=== PATIENT | male | born 1950 | race American Indian/Alaskan Native ===

== ENCOUNTER 2017-01-31 16:17 | Emergency (ER) | payer MEDICAID ==
[2017-01-31 16:56] VITALS: BP 178/82
--- NOTE | 2017-01-31 21:08 | XRay Report ---
FINAL REPORT EXAM: XR ANKLE 3 LT HISTORY: pain left ankle TECHNIQUE: Three views left ankle PRIORS: None. FINDINGS: No fracture is identified. No dislocation seen. Ankle mortise is intact no evidence of joint space widening. No erosive or degenerative changes are identified. No evidence of joint effusion. IMPRESSION: Negative ankle series
--- NOTE | 2017-01-31 22:24 | Emergency Department Report ---
ED Lower Extremity HPI - General Chief Complaint: Extremity Injury, Lower Stated Complaint: LEFT FOOT PAIN Time Seen by Provider: 01/31/17 21:06 Source: patient Mode of arrival: Ambulatory Limitations: No Limitations - History of Present Illness Initial Comments: This is a 66-year-old male that presents with left heel pain for the past 3 days. Patient describes pain as burning with difficulty bearing weight on it. Patient denies any numbness or tingling sensation, trauma to the limb, chest pain, shortness of breath, swelling, redness, fever or chills. Patient stated the pain is the worse with the first step in the morning. Patient describes pain as burning and aching. Patient states history of the same symptoms that comes and goes for the past couple of months. Patient rates pain at 10 out of 10. Patient does not seem toxic or ill in appearance. No signs of distress. Patient is well-nourished. MD Complaint: other (heel pain) -: Gradual, days(s) (3) Severity: moderate Improves With: NSAID Worsens With: weight bearing, palpation (of heel area) Associated Symptoms: able to partially bear weight (due to pain). denies: snap/ pop sensation, swelling, numbness, tingling, unable to bear weight, ambulatory - Related Data Previous Rx's Medication Instructions Recorded Last Taken Type ALBUTEROL Inhaler [ProAir HFA 2 puff IH BID PRN #1 inha 04/30/15 Unknown Rx Inhaler] Benzonatate [Tessalon Perles] 100 mg PO Q8HR #20 capsule 04/30/15 Unknown Rx Budesoni/Formotero 160-4.5(Nf) 2 puff IH BID #1 inha 04/30/15 Unknown Rx [Symbicort 160-4.5 (Nf)] Insulin Glulisine [Apidra] 0 units SUB-Q ACHS #30 units 04/30/15 Unknown Rx Ipratropium/Albuterol Sulfate 1 ampul IH TIDRT 20 Days 04/30/15 Unknown Rx [Duoneb 0.5 mg-3 mg/3 ml Soln] Levofloxacin [Levaquin TAB] 750 mg PO QDAY #8 tablet 04/30/15 Unknown Rx amLODIPine [Norvasc] 10 mg PO DAILY #30 tablet 04/30/15 Unknown Rx predniSONE [Deltasone] 20 mg PO QDAY 8 Days 04/30/15 Unknown Rx Ibuprofen [Motrin 600 MG tab] 600 mg PO Q8H PRN 7 Days 01/31/17 Unknown Rx Prednisone [predniSONE] 40 mg PO QDAY 5 Days 01/31/17 Unknown Rx Allergies Allergy/AdvReac Type Severity Reaction Status Date / Time No Known Allergies Allergy Verified 09/03/13 10:59 ED Review of Systems ROS: Stated complaint: LEFT FOOT PAIN Other details as noted in HPI Constitutional: denies: chills, fever Eyes: denies: eye pain, eye discharge, vision change ENT: denies: ear pain, throat pain Respiratory: denies: cough, shortness of breath, wheezing Cardiovascular: denies: chest pain, palpitations Endocrine: no symptoms reported Gastrointestinal: denies: abdominal pain, nausea, diarrhea Genitourinary: denies: urgency, dysuria Musculoskeletal: denies: back pain, joint swelling, arthralgia Skin: denies: rash, lesions Neurological: denies: headache, weakness, paresthesias Psychiatric: denies: anxiety, depression Hematological/Lymphatic: denies: easy bleeding, easy bruising ED Past Medical Hx - Past Medical History Hx Hypertension: Yes Hx Congestive Heart Failure: No Hx Diabetes: No Hx Asthma: No Hx COPD: Yes - Surgical History Additional Surgical History: colostomy - Social History Smoking Status: Current Every Day Smoker Substance Use Type: Alcohol - Medications Home Medications: Home Medications Medication Instructions Recorded Confirmed Last Taken Type ALBUTEROL Inhaler [ProAir HFA 2 puff IH BID PRN #1 inha 04/30/15 Unknown Rx Inhaler] Benzonatate [Tessalon Perles] 100 mg PO Q8HR #20 capsule 04/30/15 Unknown Rx Budesoni/Formotero 160-4.5(Nf) 2 puff IH BID #1 inha 04/30/15 Unknown Rx [Symbicort 160-4.5 (Nf)] Insulin Glulisine [Apidra] 0 units SUB-Q ACHS #30 units 04/30/15 Unknown Rx Ipratropium/Albuterol Sulfate 1 ampul IH TIDRT 20 Days 04/30/15 Unknown Rx [Duoneb 0.5 mg-3 mg/3 ml Soln] Levofloxacin [Levaquin TAB] 750 mg PO QDAY #8 tablet 04/30/15 Unknown Rx amLODIPine [Norvasc] 10 mg PO DAILY #30 tablet 04/30/15 Unknown Rx predniSONE [Deltasone] 20 mg PO QDAY 8 Days 04/30/15 Unknown Rx Ibuprofen [Motrin 600 MG tab] 600 mg PO Q8H PRN 7 Days 01/31/17 Unknown Rx Prednisone [predniSONE] 40 mg PO QDAY 5 Days 01/31/17 Unknown Rx ED Physical Exam - General Limitations: No Limitations General appearance: alert, in no apparent distress - Head Head exam: Present: atraumatic, normocephalic - Eye Eye exam: Present: normal appearance - ENT ENT exam: Present: mucous membranes moist - Neck Neck exam: Present: normal inspection - Respiratory Respiratory exam: Present: normal lung sounds bilaterally. Absent: respiratory distress - Cardiovascular Cardiovascular Exam: Present: regular rate, normal rhythm. Absent: systolic murmur, diastolic murmur, rubs, gallop - GI/Abdominal GI/Abdominal exam: Present: soft, normal bowel sounds - Rectal Rectal exam: Present: deferred - Extremities Exam Extremities exam: Present: normal inspection - Expanded Lower Extremity Exam Left Hip exam: Present: normal inspection, full ROM Upper Leg exam: Present: normal inspection, full ROM Knee exam: Present: normal inspection, full ROM Lower Leg exam: Present: normal inspection, full ROM Ankle exam: Present: normal inspection, full ROM. Absent: tenderness, swelling Foot/Toe exam: Present: normal inspection, full ROM, tenderness (heel). Absent : swelling, abrasion, laceration, ecchymosis, deformity, dislocation, erythema, puncture wound, foreign body, tenderness at base of 5th metatarsal, nail avulsion, subungual hematoma Neuro vascular tendon exam: Present: no vascular compromise Gait: Positive: observed and normal - Back Exam Back exam: Present: normal inspection - Neurological Exam Neurological exam: Present: alert, oriented X3 - Psychiatric Psychiatric exam: Present: normal affect, normal mood - Skin Skin exam: Present: warm, dry, intact, normal color. Absent: rash ED Course Vital Signs 01/31/17 16:52 Temperature 98.5 F Pulse Rate 79 Respiratory 20 Rate Blood Pressure 178/82 O2 Sat by Pulse 100 Oximetry ED Lower Extremity MDM - Medical Decision Making Ed course: 66-year-old male that presents with left heel pain 1- patient received ibuprofen 600 mg for pain in the ED. 2- I instructed the patient pain is due to plantar fasciitis. I instructed the patient to rest and ice to the left foot. I also prescribed patient with ibuprofen 600 mg by mouth as needed. 3- I also instructed the patient not to wear slippers ogle barefoot due to aggravating of symptoms and may result any recurrence of symptoms. I instructed the patient to buy athletics shoes that have an arch supporting, such as orthopedic shoes, may be helpful. 4- patient received prednisone 40 mg for 5 days and ibuprofen 600 mg by mouth when necessary at the time of discharge. 5- I instructed the patient to follow-up with his orthopedic/primary care doctor in 3-5 days. 6- I also instructed the patient to observe sinus symptoms of swelling, redness , fever or chills, numbness or tingling sensation extremity and to report back to emergency room. 7- x-ray of ankle is negative ankle series. Critical care attestation.: If time is entered above; I have spent that time in minutes in the direct care of this critically ill patient, excluding procedure time. ED Disposition Clinical Impression: Plantar fasciitis of left foot Disposition: DISCHARGED TO HOME OR SELFCARE Is pt being admited?: No Does the pt Need Aspirin: No Condition: Stable Instructions: Plantar Fasciitis (ED), Ibuprofen (By mouth), Prednisone (By mouth) Additional Instructions: Do not to wear slippers or go barefoot due to aggravating of symptoms and may result any recurrence of symptoms. Buy athletics shoes that have an arch supporting, such as orthopedic shoes, may be helpful. Take medications as prescribed. Follow-up with his orthopedic/primary care doctor in 3-5 days. Bbserve sinus symptoms of swelling, redness, fever or chills, numbness or tingling sensation extremity and report back to emergency room if symptoms present. Prescriptions: Ibuprofen [Motrin 600 MG tab] 600 mg PO Q8H PRN 7 Days PRN Reason: Pain Prednisone [predniSONE] 40 mg PO QDAY 5 Days Referrals: PRIMARY CARE, [Primary Care Provider] - 3-5 Days LEATHA MENDOZA MD [Referring] - 3-5 Days GIO TURNER MD [Referring] - 3-5 Days ZOILA STEWART MD [Referring] - 3-5 Days AMARJIT MANDUJANO MD [Referring] - 3-5 Days [facility] [Outside] - 3-5 Days
[2017-01-31] MEDS ORDERED: MOTRIN PO ONE (22:33)
== END 2017-01-31 22:55 | disposition home or self-care (01) ==
LOC: ED 16:17
DX: M72.2 Plantar fascial fibromatosis (principal); I10 Essential (primary) hypertension; J44.9 Chronic obstructive pulmonary disease, unspecified; F17.200 Nicotine dependence, unspecified, uncomplicated
CPT/HCPCS: 99283

== ENCOUNTER 2017-10-17 12:42 | Emergency (ER) | payer MEDICAID ==
--- NOTE | 2017-10-17 14:32 | XRay Report ---
ROUTINE CHEST, TWO VIEWS: HISTORY: Shortness of breath. The trachea, heart, mediastinal contour, lung thao and bony thorax are unremarkable. IMPRESSION: Unremarkable chest x-ray.
[2017-10-17 16:28] LABS: Hematocrit 42.6 % (35.5-45.6); Mean Corpuscular HGB Conc 33 % (32-34); Mean Corpuscular Hemoglobin 30 pg (28-32); Mean Corpuscular Volume 92 fl (84-94); Platelet Count 166 K/mm3 (140-440); Red Blood Count 4.61 M/mm3 (3.65-5.03); Red Cell Distribution Width 14.3 % (13.2-15.2)
[2017-10-17 16:37] LABS: BUN/Creatinine Ratio 14; Blood Urea Nitrogen 19 mg/dL (9-20); Calcium 8.8 mg/dL (8.4-10.2); Hemolysis Index 15
--- NOTE | 2017-10-18 00:38 | Emergency Department Report ---
ED Shortness of Breath HPI - General Chief Complaint: Upper Respiratory Infection Stated Complaint: FLU LIKE SYMPTOMS Time Seen by Provider: 10/18/17 00:28 Source: patient Mode of arrival: Ambulatory Limitations: No Limitations - History of Present Illness Initial Comments: Patient is 66 years old male history of COPD, hypertension and diabetes presented with shortness of breath cough productive with yellowish and greenish sputum associated with chills. Patient also stated that he has been nauseated but no vomiting. Positive diarrhea. Patient denied any chest pain. MD Complaint: shortness of breath, cough -: week(s) Severity: moderate Consistency: intermittent Associated Symptoms: fever, cough, sputum production - Related Data Previous Rx's Medication Instructions Recorded Last Taken Type ALBUTEROL Inhaler [ProAir HFA 2 puff IH BID PRN #1 inha 04/30/15 Unknown Rx Inhaler] Benzonatate [Tessalon Perles] 100 mg PO Q8HR #20 capsule 04/30/15 Unknown Rx Budesoni/Formotero 160-4.5(Nf) 2 puff IH BID #1 inha 04/30/15 Unknown Rx [Symbicort 160-4.5 (Nf)] Insulin Glulisine [Apidra] 0 units SUB-Q ACHS #30 units 04/30/15 Unknown Rx Ipratropium/Albuterol Sulfate 1 ampul IH TIDRT 20 Days ampul.neb 04/30/15 Unknown Rx [DUONEB *Not for PRN Use*] Levofloxacin [Levaquin TAB] 750 mg PO QDAY #8 tablet 04/30/15 Unknown Rx amLODIPine [Norvasc] 10 mg PO DAILY #30 tablet 04/30/15 Unknown Rx predniSONE [Deltasone] 20 mg PO QDAY 8 Days tab 04/30/15 Unknown Rx Ibuprofen [Motrin 600 MG tab] 600 mg PO Q8H PRN 7 Days tablet 01/31/17 Unknown Rx Prednisone [predniSONE] 40 mg PO QDAY 5 Days tab 01/31/17 Unknown Rx Allergies Allergy/AdvReac Type Severity Reaction Status Date / Time No Known Allergies Allergy Verified 09/03/13 10:59 ED Review of Systems ROS: Stated complaint: FLU LIKE SYMPTOMS Other details as noted in HPI Comment: All other systems reviewed and negative Constitutional: chills. denies: fever Respiratory: cough, shortness of breath. denies: orthopnea, SOB with exertion, SOB at rest, stridor, wheezing Cardiovascular: denies: chest pain, palpitations Gastrointestinal: nausea. denies: abdominal pain, vomiting, diarrhea Neurological: denies: headache, weakness, numbness, paresthesias ED Past Medical Hx - Past Medical History Hx Hypertension: Yes Hx Congestive Heart Failure: No Hx Diabetes: Yes Hx Asthma: No Hx COPD: Yes Additional medical history: gout,pneumonia - Surgical History Additional Surgical History: colostomy - Social History Smoking Status: Current Every Day Smoker Substance Use Type: None - Medications Home Medications: Home Medications Medication Instructions Recorded Confirmed Last Taken Type ALBUTEROL Inhaler [ProAir HFA 2 puff IH BID PRN #1 inha 04/30/15 Unknown Rx Inhaler] Benzonatate [Tessalon Perles] 100 mg PO Q8HR #20 capsule 04/30/15 Unknown Rx Budesoni/Formotero 160-4.5(Nf) 2 puff IH BID #1 inha 04/30/15 Unknown Rx [Symbicort 160-4.5 (Nf)] Insulin Glulisine [Apidra] 0 units SUB-Q ACHS #30 units 04/30/15 Unknown Rx Ipratropium/Albuterol Sulfate 1 ampul IH TIDRT 20 Days ampul.neb 04/30/15 Unknown Rx [DUONEB *Not for PRN Use*] Levofloxacin [Levaquin TAB] 750 mg PO QDAY #8 tablet 04/30/15 Unknown Rx amLODIPine [Norvasc] 10 mg PO DAILY #30 tablet 04/30/15 Unknown Rx predniSONE [Deltasone] 20 mg PO QDAY 8 Days tab 04/30/15 Unknown Rx Ibuprofen [Motrin 600 MG tab] 600 mg PO Q8H PRN 7 Days tablet 01/31/17 Unknown Rx Prednisone [predniSONE] 40 mg PO QDAY 5 Days tab 01/31/17 Unknown Rx ED Physical Exam - General Limitations: No Limitations General appearance: alert, in no apparent distress - Head Head exam: Present: atraumatic, normocephalic, normal inspection - Eye Eye exam: Present: normal appearance, PERRL - ENT ENT exam: Present: normal exam, mucous membranes moist - Neck Neck exam: Present: normal inspection, full ROM. Absent: tenderness, meningismus, lymphadenopathy - Respiratory Respiratory exam: Present: normal lung sounds bilaterally. Absent: respiratory distress, wheezes, rales, rhonchi, stridor, chest wall tenderness, accessory muscle use, decreased breath sounds, prolonged expiratory - Cardiovascular Cardiovascular Exam: Present: regular rate, normal rhythm, normal heart sounds - GI/Abdominal GI/Abdominal exam: Present: soft, normal bowel sounds. Absent: distended, tenderness, guarding, rebound, rigid, organomegaly, mass, bruit, pulsatile mass , hernia - Extremities Exam Extremities exam: Present: normal inspection, full ROM, normal capillary refill - Back Exam Back exam: Present: normal inspection, full ROM. Absent: CVA tenderness (L) - Neurological Exam Neurological exam: Present: alert, oriented X3, CN II-XII intact, normal gait - Skin Skin exam: Present: warm, intact, normal color. Absent: cyanosis ED Course Vital Signs 10/17/17 13:18 Temperature 98.8 F Pulse Rate 84 Respiratory 24 Rate Blood Pressure 130/64 O2 Sat by Pulse 95 Oximetry ED Medical Decision Making - Lab Data Result diagrams: 10/17/17 16:00 10/17/17 16:00 - Radiology Data Radiology results: report reviewed Referring Physician: ED RONNY Patient Name: REJI NARANJO Date of : 1950 Sex: Male Report Date: 2017-10-17 Report Status: Finalized Findings [facility] [address] [place] [address] XRay Report Signed Patient: REJI NARANJO MR#: [id number] : 1950 Acct:[id number] Age/Sex: 66 / M ADM Date: 10/17/17 Loc: ED Attending Dr: Ordering Physician: MARI JEFFERSON MD Date of Service: 10/17/17 Procedure(s): XR chest routine 2V Accession Number(s): [id number] cc: MARI JEFFERSON MD Fluoro Time In Minutes: ROUTINE CHEST, TWO VIEWS: HISTORY: Shortness of breath. The trachea, heart, mediastinal contour, lung thao and bony thorax are unremarkable. IMPRESSION: Unremarkable chest x-ray. Transcribed By: TTR Dictated By: SHAGGY FERMIN JR, MD Electronically Authenticated By: SHAGGY FERMIN JR, MD Signed Date/Time: 10/17/171425 DD/ 25 TD/TT: 10/17/171425 Critical care attestation.: If time is entered above; I have spent that time in minutes in the direct care of this critically ill patient, excluding procedure time. ED Disposition Clinical Impression: Acute exacerbation of chronic obstructive pulmonary disease (COPD), Acute bronchitis Disposition: TO HOME OR SELFCARE Is pt being admited?: No Condition: Stable Instructions: Chronic Obstructive Pulmonary Disease (ED), Acute Bronchitis (ED) Referrals: IRA AGUILAR NP [Primary Care Provider] - 3-5 Days
[2017-10-18 00:43] VITALS: BP 158/69
== END 2017-10-18 01:04 | disposition home or self-care (01) ==
LOC: ED 12:42
DX: J45.909 Unspecified asthma, uncomplicated (principal); J20.9 Acute bronchitis, unspecified; I10 Essential (primary) hypertension; E11.9 Type 2 diabetes mellitus without complications; F17.200 Nicotine dependence, unspecified, uncomplicated
CPT/HCPCS: 36415; 71046; 80048; 85027; 87400

== ENCOUNTER 2018-11-03 08:39 | Inpatient (IN) | payer MEDICARE ==
--- NOTE | 2018-11-03 08:45 | Emergency Department Report ---
ED Abdominal Pain HPI - General Stated Complaint: UNABLE TO URINATE Time Seen by Provider: 11/03/18 08:44 Source: patient, EMS Mode of arrival: Stretcher Limitations: No Limitations - History of Present Illness Initial Comments: Patient is a 67-year-old male that presents emergency room with complaints of urinary retention. Patient states she's not urinated for 4 days. Patient having lower abdominal pressure. Patient states the pressure is 10 out of 10. Patient states the pressure is better with rest.. Patient states it is worse with movement and palpation. Patient states the pressure is nonradiating. Patient denies fever and chills. Patient denies other pain. Patient denies chest pain shortness of breath. MD Complaint: abdominal pain -: Sudden Location: suprapubic Radiation: none Migration to: no migration Severity: severe Severity scale (0 -10): 10 Quality: aching Consistency: constant Improves With: rest Worsens With: movement Associated Symptoms: denies other symptoms. denies: nausea, vomiting, diarrhea, fever, chills, constipation, dysuria, hematemesis, hematochezia, melena, hematuria, anorexia, syncope - Related Data Home Medications Medication Instructions Recorded Confirmed Last Taken Allopurinol [Zyloprim] 300 mg PO QDAY 11/03/18 11/03/18 Unknown Amlodipine Besylate [Norvasc] 10 mg PO QDAY 11/03/18 11/03/18 Unknown Atorvastatin Calcium [Lipitor] 20 mg PO QDAY 11/03/18 11/03/18 Unknown Fluticasone/Vilanterol [Breo 1 each IH QDAY 11/03/18 11/03/18 Unknown Ellipta 200-25 Mcg INH] Metoprolol [Lopressor] 25 mg PO BID 11/03/18 11/03/18 Unknown Olmesartan/Hydrochlorothiazide 1 each PO QDAY 11/03/18 11/03/18 Unknown [Olmesartan-Hctz 40-25 mg Tab] Potassium Chloride [Klor-Con 10] 10 meq PO QDAY 11/03/18 11/03/18 Unknown Allergies Allergy/AdvReac Type Severity Reaction Status Date / Time No Known Allergies Allergy Verified 09/03/13 10:59 ED Review of Systems ROS: Stated complaint: UNABLE TO URINATE Other details as noted in HPI Constitutional: denies: chills, fever Eyes: denies: eye pain, eye discharge, vision change ENT: denies: ear pain, throat pain Respiratory: denies: cough, shortness of breath, wheezing Cardiovascular: denies: chest pain, palpitations Endocrine: no symptoms reported Gastrointestinal: abdominal pain. denies: nausea, diarrhea Genitourinary: denies: urgency, dysuria Musculoskeletal: denies: back pain, joint swelling, arthralgia Skin: denies: rash, lesions Neurological: denies: headache, weakness, paresthesias Psychiatric: denies: anxiety, depression Hematological/Lymphatic: denies: easy bleeding, easy bruising ED Past Medical Hx - Past Medical History Previous Medical History?: Yes Hx Hypertension: Yes Hx Congestive Heart Failure: No Hx Diabetes: Yes Hx Asthma: No Hx COPD: Yes Additional medical history: gout,pneumonia - Surgical History Past Surgical History?: Yes Additional Surgical History: colostomy - Family History Family history: no significant - Social History Smoking Status: Current Every Day Smoker Substance Use Type: None - Medications Home Medications: Home Medications Medication Instructions Recorded Confirmed Last Taken Type Allopurinol [Zyloprim] 300 mg PO QDAY 11/03/18 11/03/18 Unknown History Amlodipine Besylate [Norvasc] 10 mg PO QDAY 11/03/18 11/03/18 Unknown History Atorvastatin Calcium [Lipitor] 20 mg PO QDAY 11/03/18 11/03/18 Unknown History Fluticasone/Vilanterol [Breo 1 each IH QDAY 11/03/18 11/03/18 Unknown History Ellipta 200-25 Mcg INH] Metoprolol [Lopressor] 25 mg PO BID 11/03/18 11/03/18 Unknown History Olmesartan/Hydrochlorothiazide 1 each PO QDAY 11/03/18 11/03/18 Unknown History [Olmesartan-Hctz 40-25 mg Tab] Potassium Chloride [Klor-Con 10] 10 meq PO QDAY 11/03/18 11/03/18 Unknown History ED Physical Exam - General Limitations: No Limitations General appearance: alert, in no apparent distress - Head Head exam: Present: atraumatic, normocephalic - Eye Eye exam: Present: normal appearance, PERRL Pupils: Present: normal accommodation - ENT ENT exam: Present: mucous membranes moist - Neck Neck exam: Present: normal inspection - Respiratory Respiratory exam: Present: normal lung sounds bilaterally. Absent: respiratory distress - Cardiovascular Cardiovascular Exam: Present: regular rate, normal rhythm. Absent: systolic murmur, diastolic murmur, rubs, gallop - GI/Abdominal GI/Abdominal exam: Present: soft, normal bowel sounds, other (colostomy bag noted). Absent: distended, tenderness, guarding - Rectal Rectal exam: Present: deferred - Extremities Exam Extremities exam: Present: normal inspection - Back Exam Back exam: Present: normal inspection - Neurological Exam Neurological exam: Present: alert, oriented X3 - Psychiatric Psychiatric exam: Present: normal affect, normal mood - Skin Skin exam: Present: warm, dry, intact, normal color. Absent: rash ED Course Vital Signs 11/03/18 11/03/18 11/03/18 09:06 09:20 09:23 Temperature 98.6 F 98.6 F Pulse Rate 118 H 118 H Respiratory 20 20 20 Rate Blood Pressure 156/66 Blood Pressure 156/66 [Left] O2 Sat by Pulse 99 99 99 Oximetry 11/03/18 11/03/18 11/03/18 10:19 10:30 10:45 Temperature Pulse Rate 96 H 95 H 94 H Respiratory 14 20 10 L Rate Blood Pressure 128/68 128/68 136/68 Blood Pressure [Left] O2 Sat by Pulse 95 98 96 Oximetry 11/03/18 11/03/18 11/03/18 11:00 11:15 11:30 Temperature Pulse Rate 91 H 94 H 89 Respiratory 24 15 21 Rate Blood Pressure 136/68 126/70 126/70 Blood Pressure [Left] O2 Sat by Pulse 94 96 94 Oximetry 11/03/18 11/03/18 11/03/18 11:45 12:00 12:16 Temperature Pulse Rate 90 87 88 Respiratory 13 19 15 Rate Blood Pressure 129/68 129/68 154/67 Blood Pressure [Left] O2 Sat by Pulse 97 98 96 Oximetry 11/03/18 11/03/18 11/03/18 12:30 12:46 13:00 Temperature Pulse Rate 88 82 86 Respiratory 15 12 23 Rate Blood Pressure 135/69 141/73 127/69 Blood Pressure [Left] O2 Sat by Pulse 94 96 96 Oximetry 11/03/18 11/03/18 13:16 14:21 Temperature 98.6 F Pulse Rate 84 103 H Respiratory 15 20 Rate Blood Pressure 135/71 Blood Pressure 134/66 [Left] O2 Sat by Pulse 96 100 Oximetry - Reevaluation(s) Reevaluation #1: Patient's Briscoe has been placed by nurse. Briscoe draining clear urine. Patient states the pressure and pain is improving. 11/03/18 09:03 Patient states he is feeling better. Family is at bedside. Family states that the patient has been confused recently due to having high fevers. Family states that the patient has been complaining of fever and chills. Family states also the patient has complained of a swelling and discharge from his rectum. Patient examined again. Over on initial contact patient patient denied other symptoms except for lower abdominal pain and pressure and urinary retention. Patient's urinary retention has been resolved however patient on reexamination found to have a large perirectal abscess that is draining. Further workup will be done. Labs will be drawn. 11/03/18 10:30 Reevaluation #2: Dr. garcia on patient. Dr. parra believes that the mass on his rectal region is secondary to scarring and anatomical variation after his last surgery secondary to a abscess that was there. Since Dr. parra believes this is not a rectal abscess source of infection will need to be found. Rectal exam done and prostate of normal size. Rectal mucus noted 11/03/18 13:58 - Consultations Consultation #1: Dr. Parra consulted for surgical D&C. Dr. Hailey Parra patient nothing by mouth and admitted to the hospitalist service Consultation #2: Hospitalist consulted for admission. Hospitalist to admit patient and assume care of patient. Bridge orders placed 11/03/18 12:56 ED Medical Decision Making - Lab Data Result diagrams: 11/03/18 10:46 11/03/18 10:46 - Radiology Data CT ABDOMEN AND PELVIS WITHOUT CONTRAST INDICATION: Fever. COMPARISON: None similar. FINDINGS: Noncontrast abdomen and pelvis CT performed. LUNG BASES: Slight right basilar dependent atelectasis or scarring posteriorly. Coronary and aortic atherosclerotic calcifications. Right hemidiaphragm approximately 4 cm higher than the left. Nonspecific air-filled distal esophageal wall prominence/thickening, not excluded for gastroesophageal reflux and/or hiatal hernia, amongst others. ABDOMEN: Please note that sensitivity to detect small visceral lesions is limited due to the absence of intravenous or oral contrast. However, grossly unremarkable unenhanced liver, spleen, gallbladder, pancreas and IVC. Slight hypodense adrenal prominence/possible hyperplasia and a questionable 1.2 cm left adrenal adenoma laterally as on axial image 46, series 2. Nonaneurysmal abdominal aorta with atherosclerotic aortoiliac calcifications and slight distal aortic ectasia with maximum caliber of 2.1 cm. No hydronephrosis or radiopaque calculi with mild nonspecific bilateral perinephric stranding. No ascites or definite significant adenopathy. Nonopacified GI tract evaluation limited, though grossly nonobstructive. Normal appendix. Moderate stool throughout colon/possible constipation. A left lower quadrant colostomy with fat containing parastomal hernia with transverse neck of approximately 2.9 cm noted as on axial image 104, series 2, amongst others. Fat containing umbilical/paraumbilical hernia with a transverse neck of 3.2 cm, axial image 94 with smaller additional supraumbilical hernias also suspected as on axial images 86 and 80. PELVIS: Briscoe catheter decompresses the urinary bladder. Delfino's pouch noted with its stapled end in the lower abdomen/upper pelvis on axial image 107. Small prostatic calcifications. Grossly unremarkable seminal vesicles. However, a large presacral/coccygeal soft tissue mass with bony destruction noted, approximately 10 cm craniocaudal, 4 cm AP and 4.1 cm transverse on axial image 133, series 2, amongst others. Some soft tissue density also noted dorsal to the involved distal sacrum/coccyx as measuring approximately 2 cm on axial image 136 with oblique extension along a possible scar towards left gluteal as on axial images 144-167, amongst others. Few pelvic phleboliths. No free fluid or definite significant adenopathy. Small fat containing inguinal hernia measuring up to 1.7 cm on the right. Severe L4-L5 disc obliteration/fusion. Additional multilevel spinal degenerative changes as spurring and advanced disc narrowing/vacuum phenomena noted. Lumbosacral facet arthropathy. Left more than right SI joint degenerative bridging/spurring. Possible osteopenia. CONCLUSION: 1. Large presacral/coccygeal soft tissue mass with bony destruction, most suspicious for metastatic disease in this patient with presumed colorectal carcinoma with postsurgical changes, as detailed above. 2. No definite acute CT abnormality on this limited, unenhanced exam with various findings as at the imaged lung bases, nonspecific bilateral perinephric stranding, umbilical/supraumbilical fat containing hernias, left parastomal fat containing hernia at the colostomy site, Briscoe catheter and multilevel spinal degenerative changes, amongst others, as described. - Medical Decision Making Patient is a 67-year-old male that presents emergency room with complaints of urinary retention. After the family arrived to the hospital family updated me on the patient's actual complaint for coming to the ER R fever and rectal pain. Patient found to have a rectal abscess and elevated white count. General surgery consult. Patient to be admitted to the hospitalist service. Patient will require IV antibiotics. - Differential Diagnosis fever. urinary retention. rectal abscess. Critical Care Time: Yes Critical care attestation.: If time is entered above; I have spent that time in minutes in the direct care of this critically ill patient, excluding procedure time. Critical Care Time: 45 minutes ED Disposition Clinical Impression: Urinary retention, Rectal abscess Fever Qualifiers: Fever type: unspecified Qualified Code(s): R50.9 - Fever, unspecified Elevated WBC count Qualifiers: Leukocytosis type: unspecified Qualified Code(s): D72.829 - Elevated white blood cell count, unspecified Colon cancer Qualifiers: Colon location: unspecified part of colon Qualified Code(s): C18.9 - Malignant neoplasm of colon, unspecified Disposition: DC-09 OP ADMIT IP TO THIS HOSP Is pt being admited?: Yes Does the pt Need Aspirin: No Condition: Critical Time of Disposition: 12:56
[2018-11-03 09:35] LABS: Bacteria,Urine 1+ /HPF (Negative)
[2018-11-03 09:37] LABS: Bilirubin,Urine NEG (Negative); Blood,Urine SM (Negative); Color,Urine Yellow (Yellow); Urobilinogen,Urine < 2.0 mg/dL (<2.0)
[2018-11-03] MEDS ORDERED: NACL 0.9% 1000 ML IV ONE (10:36)
[2018-11-03 11:00] LABS: Basophils % (Auto) 0.2 % (0.0-1.8); Hematocrit 36.4 % (35.5-45.6); Hemoglobin 12.2 gm/dl (11.8-15.2); Lymphocytes # (Auto) 0.9 K/mm3 (1.2-5.4); Lymphocytes % (Auto) 4.9 % (13.4-35.0); Mean Corpuscular HGB Conc 34 % (32-34); Mean Corpuscular Volume 90 fl (84-94); Monocytes # (Auto) 1.5 K/mm3 (0.0-0.8); Platelet Count 320 K/mm3 (140-440); Red Blood Count 4.06 M/mm3 (3.65-5.03); Red Cell Distribution Width 13.9 % (13.2-15.2)
[2018-11-03 11:24] LABS: Alanine Aminotransferase 46 units/L (7-56); Albumin 3.1 g/dL (3.9-5); BUN/Creatinine Ratio 22; Blood Urea Nitrogen 31 mg/dL (9-20); Calcium 9.4 mg/dL (8.4-10.2); Hemolysis Index 0
[2018-11-03] MEDS ORDERED: MAXIPIME/NS 2 GM/100 ML 2 GM/100 ML BAG IV ONE ×2 (11:52→13:22)
--- NOTE | 2018-11-03 15:04 | Cat Scan Report ---
CT ABDOMEN AND PELVIS WITHOUT CONTRAST INDICATION: Fever. COMPARISON: None similar. FINDINGS: Noncontrast abdomen and pelvis CT performed. LUNG BASES: Slight right basilar dependent atelectasis or scarring posteriorly. Coronary and aortic atherosclerotic calcifications. Right hemidiaphragm approximately 4 cm higher than the left. Nonspecific air-filled distal esophageal wall prominence/thickening, not excluded for gastroesophageal reflux and/or hiatal hernia, amongst others. ABDOMEN: Please note that sensitivity to detect small visceral lesions is limited due to the absence of intravenous or oral contrast. However, grossly unremarkable unenhanced liver, spleen, gallbladder, pancreas and IVC. Slight hypodense adrenal prominence/possible hyperplasia and a questionable 1.2 cm left adrenal adenoma laterally as on axial image 46, series 2. Nonaneurysmal abdominal aorta with atherosclerotic aortoiliac calcifications and slight distal aortic ectasia with maximum caliber of 2.1 cm. No hydronephrosis or radiopaque calculi with mild nonspecific bilateral perinephric stranding. No ascites or definite significant adenopathy. Nonopacified GI tract evaluation limited, though grossly nonobstructive. Normal appendix. Moderate stool throughout colon/possible constipation. A left lower quadrant colostomy with fat containing parastomal hernia with transverse neck of approximately 2.9 cm noted as on axial image 104, series 2, amongst others. Fat containing umbilical/paraumbilical hernia with a transverse neck of 3.2 cm, axial image 94 with smaller additional supraumbilical hernias also suspected as on axial images 86 and 80. PELVIS: Briscoe catheter decompresses the urinary bladder. Delfino's pouch noted with its stapled end in the lower abdomen/upper pelvis on axial image 107. Small prostatic calcifications. Grossly unremarkable seminal vesicles. However, a large presacral/coccygeal soft tissue mass with bony destruction noted, approximately 10 cm craniocaudal, 4 cm AP and 4.1 cm transverse on axial image 133, series 2, amongst others. Some soft tissue density also noted dorsal to the involved distal sacrum/coccyx as measuring approximately 2 cm on axial image 136 with oblique extension along a possible scar towards left gluteal as on axial images 144-167, amongst others. Few pelvic phleboliths. No free fluid or definite significant adenopathy. Small fat containing inguinal hernia measuring up to 1.7 cm on the right. Severe L4-L5 disc obliteration/fusion. Additional multilevel spinal degenerative changes as spurring and advanced disc narrowing/vacuum phenomena noted. Lumbosacral facet arthropathy. Left more than right SI joint degenerative bridging/spurring. Possible osteopenia. CONCLUSION: 1. Large presacral/coccygeal soft tissue mass with bony destruction, most suspicious for metastatic disease in this patient with presumed colorectal carcinoma with postsurgical changes, as detailed above. 2. No definite acute CT abnormality on this limited, unenhanced exam with various findings as at the imaged lung bases, nonspecific bilateral perinephric stranding, umbilical/supraumbilical fat containing hernias, left parastomal fat containing hernia at the colostomy site, Briscoe catheter and multilevel spinal degenerative changes, amongst others, as described. Thank you for the opportunity to participate in this patient's care.
--- NOTE | 2018-11-03 15:43 | XRay Report ---
PORTABLE CHEST: Fever An AP portable view of the chest demonstrates a normal cardiac contour considering the limits of this technique. The lungs are clear with no evidence of infiltrate, fluid or failure. No interval change compared to prior exam of October 17, 2017. IMPRESSION: Normal portable chest.
--- NOTE | 2018-11-03 17:28 | Consultation ---
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 He is a poor historian and all history is obtained from current chart and prior hospitalizations. Apparently he has not urinated in 4 days. He also noted some soreness in his rectal area especially when sitting down as well as mucous discharge for the last 3 days. The patient had a colostomy performed due to a chronic anal fistula. He did have surgical drainage of the anal fistula. From t he records he has not had a recent colonoscopy. He was seen by [facility] in 2015 during a hospitalization. Unsure if he has followed up as an outpatient since then. He has never had w/u for Crohns disease per the chart. Past History Past Medical History: COPD, hypertension, hyperlipidemia, other (chronic anal fistula) Past Surgical History: Other (drainage of anal fistula, colostomy) Social history: no significant social history Family history: no significant family history Medications and Allergies Allergies Allergy/AdvReac Type Severity Reaction Status Date / Time No Known Allergies Allergy Verified 09/03/13 10:59 Home Medications Medication Instructions Recorded Confirmed Last Taken Type Allopurinol [Zyloprim] 300 mg PO QDAY 11/03/18 11/03/18 Unknown History Amlodipine Besylate [Norvasc] 10 mg PO QDAY 11/03/18 11/03/18 Unknown History Atorvastatin Calcium [Lipitor] 20 mg PO QDAY 11/03/18 11/03/18 Unknown History Fluticasone/Vilanterol [Breo 1 each IH QDAY 11/03/18 11/03/18 Unknown History Ellipta 200-25 Mcg INH] Metoprolol [Lopressor] 25 mg PO BID 11/03/18 11/03/18 Unknown History Olmesartan/Hydrochlorothiazide 1 each PO QDAY 11/03/18 11/03/18 Unknown History [Olmesartan-Hctz 40-25 mg Tab] Potassium Chloride [Klor-Con 10] 10 meq PO QDAY 11/03/18 11/03/18 Unknown History Active Meds: Active Medications Pneumococcal Polyvalent Vaccine (Pneumovax 23) 0.5 ml IM .ONCE ONE Stop: 11/04/18 12:01 Review of Systems All systems: negative (10 pt ROS performed and negative except for that listed in HPI) Exam Vital Signs Temp Pulse Resp BP Pulse Ox 98.6 F 118 H 20 156/66 99 11/03/18 09:06 11/03/18 09:06 11/03/18 09:06 11/03/18 09:06 11/03/18 09:06 Narrative exam: Gen; AAOx3. NAD ENT: no scleral icterus or conjunctival pallor CV: s1, S2+ resp: even and unlabored Abd: soft, NT, ND, protuberant. colostomy in place with liquid in bag Ext: no c/c/e : little in place with dark chetan urine in bag Rectal: right perirectal gluteal surgical scar, contracted and well healed. Prominent perirectal soft tissue without fluctuance, erythema, induration or drainage. 18G needle inserted in sterile fashion into this area and nothing aspirated. Rectum with white clear mucous discharge. Chronic 1cm epithelialized tract posterior to the rectum without drainage Results - Labs 11/03/18 10:46 11/03/18 10:46 Abnormal lab results 11/03/18 11/03/18 Range/Units 10:46 10:46 WBC 19.2 H (4.5-11.0) K/mm3 Lymph % (Auto) 4.9 L (13.4-35.0) % Harlan % (Auto) 8.0 H (0.0-7.3) % Lymph # 0.9 L (1.2-5.4) K/mm3 Harlan # 1.5 H (0.0-0.8) K/mm3 Seg Neutrophils % 86.9 H (40.0-70.0) % Seg Neutrophils # 16.7 H (1.8-7.7) K/mm3 Chloride 96.8 L (98-107) mmol/L BUN 31 H (9-20) mg/dL Glucose 171 H (75-100) mg/dL AST 54 H (5-40) units/L Albumin 3.1 L (3.9-5) g/dL Diabetes panel 11/03/18 Range/Units 10:46 Sodium 137 (137-145) mmol/L Potassium 4.2 (3.6-5.0) mmol/L Chloride 96.8 L (98-107) mmol/L Carbon Dioxide 27 (22-30) mmol/L BUN 31 H (9-20) mg/dL Creatinine 1.4 (0.8-1.5) mg/dL Glucose 171 H (75-100) mg/dL Calcium 9.4 (8.4-10.2) mg/dL AST 54 H (5-40) units/L ALT 46 (7-56) units/L Alkaline Phosphatase 100 (35-129) units/L Total Protein 8.1 (6.3-8.2) g/dL Albumin 3.1 L (3.9-5) g/dL Calcium panel 11/03/18 Range/Units 10:46 Calcium 9.4 (8.4-10.2) mg/dL Albumin 3.1 L (3.9-5) g/dL Pituitary panel 11/03/18 Range/Units 10:46 Sodium 137 (137-145) mmol/L Potassium 4.2 (3.6-5.0) mmol/L Chloride 96.8 L (98-107) mmol/L Carbon Dioxide 27 (22-30) mmol/L BUN 31 H (9-20) mg/dL Creatinine 1.4 (0.8-1.5) mg/dL Glucose 171 H (75-100) mg/dL Calcium 9.4 (8.4-10.2) mg/dL Adrenal panel 11/03/18 Range/Units 10:46 Sodium 137 (137-145) mmol/L Potassium 4.2 (3.6-5.0) mmol/L Chloride 96.8 L (98-107) mmol/L Carbon Dioxide 27 (22-30) mmol/L BUN 31 H (9-20) mg/dL Creatinine 1.4 (0.8-1.5) mg/dL Glucose 171 H (75-100) mg/dL Calcium 9.4 (8.4-10.2) mg/dL Total Bilirubin 0.90 (0.1-1.2) mg/dL AST 54 H (5-40) units/L ALT 46 (7-56) units/L Alkaline Phosphatase 100 (35-129) units/L Total Protein 8.1 (6.3-8.2) g/dL Albumin 3.1 L (3.9-5) g/dL - Imaging CT scan - abdomen: report reviewed, image reviewed CT scan - pelvis: report reviewed, image reviewed Assessment and Plan 67 yo M with elevated WBC, tachycardia, urinary retention, ?perirectal abscess Plan: 1. On exam patient does not have a perirectal abscess but evidence of surgery in the perianal area. He has soft tissue prominence likely due to the surgery and mucous drainage from the rectum can be seen commonly after colostomy creation. 2. I reviewed the CT images and report. I also discussed the report with radiologist Dr. Zuleta. The patient does not have a known hx of colorectal cancer. After discussing the history of chronic anal fistula and surgery to the perianal area due to this diagnosis, the findings on the CT are likely related to chronic infection and not metastatic colon cancer. Dr. Zuleta recommends obtaining an old CT scan for comparison if possible 3. Reg diet 4. IVF 5. empiric antibiotics and further w/u for leukocytosis per 1' team 6. obtain old CT scan results if possible. Unsure where patient's prior surgery was. No family was at bedside, I will try and reach out to a family member tomorrow to obtain more details. Thank you, please call with questions.
[2018-11-03] MEDS ORDERED: SODIUM CHLORIDE FLUSH SYRINGE 10 ML IV PRN (18:51)
--- NOTE | 2018-11-03 18:51 | History and Physical Report ---
History of Present Illness Date of examination: 11/03/18 Date of admission: 11/03/18 12:58 Chief complaint: Urinary retention for 4 days History of present illness: 67-year-old male presents to emergency room with complaints of urinary retention for 4 days.Patient is a poor historian.Also complaints of some drainage per rectum.Patient has chronic anal fistula because of which patient has diverting colostomy so that Anal fistula can heal.Patient was supposed to h ave GI folloow up but he never dollowed up.No known history of chrohn's disease.Abd pain present. Past Medical History Previous Medical History?: Yes Hypertension: Yes Diabetes: Yes COPD: Yes Additional medical history: gout,pneumonia Surgical History Past Surgical History?: Yes Additional Surgical History: colostomy Family History No significant History Social History Smoking Status: Current Every Day Smoker Substance Use Type: None Medications Home Medications: Home Medications Medication Instructions Recorded Confirmed Last Taken Type Allopurinol [Zyloprim] 300 mg PO QDAY 11/03/18 11/03/18 Unknown History Amlodipine Besylate [Norvasc] 10 mg PO QDAY 11/03/18 11/03/18 Unknown History Atorvastatin Calcium [Lipitor] 20 mg PO QDAY 11/03/18 11/03/18 Unknown History Fluticasone/Vilanterol [Breo 1 each IH QDAY 11/03/18 11/03/18 Unknown History Ellipta 200-25 Mcg INH] Metoprolol [Lopressor] 25 mg PO BID 11/03/18 11/03/18 Unknown History Olmesartan/Hydrochlorothiazide 1 each PO QDAY 11/03/18 11/03/18 Unknown History [Olmesartan-Hctz 40-25 mg Tab] Potassium Chloride [Klor-Con 10] 10 meq PO QDAY 11/03/18 11/03/18 Unknown History Review of Systems ROS: Stated complaint: UNABLE TO URINATE Other details as noted in HPI Constitutional: denies: chills, fever Eyes: denies: eye pain, eye discharge, vision change ENT: denies: ear pain, throat pain Respiratory: denies: cough, shortness of breath, wheezing Cardiovascular: denies: chest pain, palpitations Endocrine: no symptoms reported Gastrointestinal: abdominal pain. denies: nausea, diarrhea Genitourinary: denies: urgency, dysuria Musculoskeletal: denies: back pain, joint swelling, arthralgia Skin: denies: rash, lesions Neurological: denies: headache, weakness, paresthesias Psychiatric: denies: anxiety, depression Hematological/Lymphatic: denies: easy bleeding, easy bruising Past History Past Medical History: COPD, hypertension, hyperlipidemia, other (chronic anal fistula) Past Surgical History: Other (drainage of anal fistula, colostomy) Social history: no significant social history Family history: no significant family history Medications and Allergies Allergies Allergy/AdvReac Type Severity Reaction Status Date / Time No Known Allergies Allergy Verified 09/03/13 10:59 Home Medications Medication Instructions Recorded Confirmed Last Taken Type Allopurinol [Zyloprim] 300 mg PO QDAY 11/03/18 11/03/18 Unknown History Amlodipine Besylate [Norvasc] 10 mg PO QDAY 11/03/18 11/03/18 Unknown History Atorvastatin Calcium [Lipitor] 20 mg PO QDAY 11/03/18 11/03/18 Unknown History Fluticasone/Vilanterol [Breo 1 each IH QDAY 11/03/18 11/03/18 Unknown History Ellipta 200-25 Mcg INH] Metoprolol [Lopressor] 25 mg PO BID 11/03/18 11/03/18 Unknown History Olmesartan/Hydrochlorothiazide 1 each PO QDAY 11/03/18 11/03/18 Unknown History [Olmesartan-Hctz 40-25 mg Tab] Potassium Chloride [Klor-Con 10] 10 meq PO QDAY 11/03/18 11/03/18 Unknown History Active Meds: Active Medications Pneumococcal Polyvalent Vaccine (Pneumovax 23) 0.5 ml IM .ONCE ONE Stop: 11/04/18 12:01 Exam - Constitutional Vitals: Temp Pulse Resp BP Pulse Ox 99.8 F H 82 20 108/42 98 11/03/18 16:20 11/03/18 16:20 11/03/18 16:20 11/03/18 16:20 11/03/18 16:20 General appearance: Present: no acute distress, well-nourished - EENT Eyes: Present: PERRL ENT: hearing intact, clear oral mucosa - Neck Neck: Present: supple, normal ROM - Respiratory Respiratory effort: normal Respiratory: bilateral: CTA - Cardiovascular Heart rate: 78 Rhythm: regular Heart Sounds: Present: S1 & S2. Absent: rub, click - Extremities Extremities: no ischemia, pulses intact, pulses symmetrical, No edema Peripheral Pulses: within normal limits - Abdominal General gastrointestinal: Present: soft, non-tender, non-distended, normal bowel sounds Male genitourinary: Present: normal - Rectal Rectal Exam: other (Rectal: right perirectal gluteal surgical scar, contracted and well healed. Prominent perirectal soft tissue without fluctuance, erythema, induration or drainage. 18G needle inserted in sterile fashion into this area an d nothing aspirated. Rectum with white clear mucous discharge. Chronic 1cm epithelialized tract posterior to the rectum without drainage) - Integumentary Integumentary: Present: clear, warm, dry - Musculoskeletal Musculoskeletal: gait normal, strength equal bilaterally - Psychiatric Psychiatric: appropriate mood/affect, intact judgment & insight - Neurologic Neurologic: CNII-XII intact, moves all extremities Results - Labs CBC & Chem 7: 11/03/18 10:46 11/03/18 10:46 Labs: Laboratory Last Values WBC 19.2 K/mm3 (4.5-11.0) H 11/03/18 10:46 RBC 4.06 M/mm3 (3.65-5.03) 11/03/18 10:46 Hgb 12.2 gm/dl (11.8-15.2) 11/03/18 10:46 Hct 36.4 % (35.5-45.6) 11/03/18 10:46 MCV 90 fl (84-94) 11/03/18 10:46 MCH 30 pg (28-32) 11/03/18 10:46 MCHC 34 % (32-34) 11/03/18 10:46 RDW 13.9 % (13.2-15.2) 11/03/18 10:46 Plt Count 320 K/mm3 (140-440) 11/03/18 10:46 Lymph % (Auto) 4.9 % (13.4-35.0) L 11/03/18 10:46 [place] % (Auto) 8.0 % (0.0-7.3) H 11/03/18 10:46 Eos % (Auto) 0.0 % (0.0-4.3) 11/03/18 10:46 Baso % (Auto) 0.2 % (0.0-1.8) 11/03/18 10:46 Lymph # 0.9 K/mm3 (1.2-5.4) L 11/03/18 10:46 [place] # 1.5 K/mm3 (0.0-0.8) H 11/03/18 10:46 Eos # 0.0 K/mm3 (0.0-0.4) 11/03/18 10:46 Baso # 0.0 K/mm3 (0.0-0.1) 11/03/18 10:46 Seg Neutrophils % 86.9 % (40.0-70.0) H 11/03/18 10:46 Seg Neutrophils # 16.7 K/mm3 (1.8-7.7) H 11/03/18 10:46 Sodium 137 mmol/L (137-145) 11/03/18 10:46 Potassium 4.2 mmol/L (3.6-5.0) 11/03/18 10:46 Chloride 96.8 mmol/L (98-107) L 11/03/18 10:46 Carbon Dioxide 27 mmol/L (22-30) 11/03/18 10:46 Anion Gap 17 mmol/L 11/03/18 10:46 BUN 31 mg/dL (9-20) H 11/03/18 10:46 Creatinine 1.4 mg/dL (0.8-1.5) 11/03/18 10:46 Estimated GFR > 60 ml/min 11/03/18 10:46 BUN/Creatinine Ratio 22 % 11/03/18 10:46 Glucose 171 mg/dL (75-100) H 11/03/18 10:46 Lactic Acid 1.50 mmol/L (0.7-2.0) 11/03/18 13:24 Calcium 9.4 mg/dL (8.4-10.2) 11/03/18 10:46 Total Bilirubin 0.90 mg/dL (0.1-1.2) 11/03/18 10:46 AST 54 units/L (5-40) H 11/03/18 10:46 ALT 46 units/L (7-56) 11/03/18 10:46 Alkaline Phosphatase 100 units/L (35-129) 11/03/18 10:46 Total Protein 8.1 g/dL (6.3-8.2) 11/03/18 10:46 Albumin 3.1 g/dL (3.9-5) L 11/03/18 10:46 Albumin/Globulin Ratio 0.6 % 11/03/18 10:46 Urine Color Yellow (Yellow) 11/03/18 09:06 Urine Turbidity Clear (Clear) 11/03/18 09:06 Urine pH 5.0 (5.0-7.0) 11/03/18 09:06 Ur Specific [place] 1.012 (1.003-1.030) 11/03/18 09:06 Urine Protein 30 mg/dl mg/dL (Negative) 11/03/18 09:06 Urine Glucose (UA) Neg mg/dL (Negative) 11/03/18 09:06 Urine Ketones Neg mg/dL (Negative) 11/03/18 09:06 Urine Blood Sm (Negative) 11/03/18 09:06 Urine Nitrite Neg (Negative) 11/03/18 09:06 Ur Reducing Substances Not Reportable 11/03/18 09:06 Urine Bilirubin Neg (Negative) 11/03/18 09:06 Urine Ictotest Not Reportable 11/03/18 09:06 Urine Urobilinogen < 2.0 mg/dL (<2.0) 11/03/18 09:06 Ur Leukocyte Esterase Neg (Negative) 11/03/18 09:06 Urine WBC (Auto) 2.0 /HPF (0.0-6.0) 11/03/18 09:06 Urine RBC (Auto) 1.0 /HPF (0.0-6.0) 11/03/18 09:06 Urine Bacteria (Auto) 1+ /HPF (Negative) 11/03/18 09:06 Short CBC 11/03/18 Range/Units 10:46 WBC 19.2 H (4.5-11.0) K/mm3 Hgb 12.2 (11.8-15.2) gm/dl Hct 36.4 (35.5-45.6) % Plt Count 320 (140-440) K/mm3 BMP 11/03/18 10:46 Sodium 137 Potassium 4.2 Chloride 96.8 L Carbon Dioxide 27 BUN 31 H Creatinine 1.4 Glucose 171 H Calcium 9.4 Liver Function 11/03/18 Range/Units 10:46 Total Bilirubin 0.90 (0.1-1.2) mg/dL AST 54 H (5-40) units/L ALT 46 (7-56) units/L Alkaline Phosphatase 100 (35-129) units/L Albumin 3.1 L (3.9-5) g/dL Urine 11/03/18 Range/Units 09:06 Urine Color Yellow (Yellow) Urine pH 5.0 (5.0-7.0) Ur Specific [place] 1.012 (1.003-1.030) Urine Protein 30 mg/dl (Negative) mg/dL Urine Glucose (UA) Neg (Negative) mg/dL - Imaging and Cardiology CT scan - abdomen: report reviewed Imaging and Cardiology: CT Abdomen/Pelvis PELVIS: Briscoe catheter decompresses the urinary bladder. Delfino's pouch noted with its stapled end in the lower abdomen/upper pelvis on axial image 107. Small prostatic calcifications. Grossly unremarkable seminal vesicles. However, a large presacral/coccygeal soft tissue mass with bony destruction note d, approximately 10 cm craniocaudal, 4 cm AP and 4.1 cm transverse on axial image 133, series 2, amongst others. Some soft tissue density also noted dorsal to the involved distal sacrum/coccyx as measuring approximately 2 cm on axial image 136 with oblique extension along a possible scar towards left gluteal as on axial images 144-167, amongst others. Few pelvic phleboliths. No free or definite significant adenopathy. Small fat containing inguinal hernia measuring up to 1.7 cm on the right. Severe L4-L5 disc obliteration/fusion. Additional multilevel spinal degenerative changes as spurring and advanced disc narrowing/vacuum phenomena noted. Lumbosacral facet arthropathy. Left more than right SI joint degenerative bridging/spurring. Possible osteopenia. CONCLUSION: 1. Large presacral/coccygeal soft tissue mass with bony destruction, most suspicious for metastatic disease in this patient with presumed colorectal carcinoma with postsurgical changes, as detailed above. 2. No definite acute CT abnormality on this limited, unenhanced exam with various findings as at the imaged lung bases, nonspecific bilateral perinephric stranding, umbilical/supraumbilical fat containing hernias, left parastomal fat containing hernia at the colostomy site, Briscoe catheter and multilevel spinal degenerative changes, amongst others, as described. Assessment and Plan Advance Directives: Yes (Full code) VTE prophylaxis?: Chemical Plan of care discussed with patient/family: Yes - Patient Problems (1) Sepsis Current Visit: No Status: Acute Plan to address problem: No source of infection found Empiric abx for now-Zosyn Cultures pending (2) Colon cancer Current Visit: Yes Status: Acute Qualifiers: Colon location: unspecified part of colon Qualified Code(s): C18.9 - Malignant neoplasm of colon, unspecified Plan to address problem: Presacral soft mass with bony destruction most suspicious for metastatic disease possibly from colon. Ordered CT guided biopsy Oncology and GI consult requested (3) Anal fistula Current Visit: No Status: Chronic Plan to address problem: Healed (4) Colostomy care Current Visit: No Status: Chronic (5) HTN (hypertension) Current Visit: No Status: Chronic Qualifiers: Hypertension type: essential hypertension Qualified Code(s): I10 - Essential (primary) hypertension Plan to address problem: OCnt antihypertensives (6) Nicotine addiction Current Visit: No Status: Chronic Qualifiers: Nicotine product type: cigarettes Plan to address problem: Nicoderm patch (7) HLD (hyperlipidemia) Current Visit: Yes Status: Chronic Qualifiers: Hyperlipidemia type: mixed hyperlipidemia Qualified Code(s): E78.2 - Mixed hyperlipidemia Plan to address problem: Cont statins (8) COPD (chronic obstructive pulmonary disease) Current Visit: Yes Status: Chronic Qualifiers: Emphysema type: unspecified Plan to address problem: Cont Ellipta and Duonebs (9) T2DM (type 2 diabetes mellitus) Current Visit: Yes Status: Chronic Qualifiers: Diabetes mellitus technician terminal and repeater insulin use: without technician terminal and repeater use Plan to address problem: Coverage for now (10) Urinary retention Current Visit: Yes Status: Acute Plan to address problem: Briscoe inserted Urology consult requested (11) Malnutrition Current Visit: Yes Status: Chronic Qualifiers: Protein-calorie malnutrition severity: moderate Plan to address problem: Dietitianconsult requested for oral supplements (12) DVT prophylaxis Current Visit: Yes Status: Acute Plan to address problem: On Lovenox and GI prophylaxis
[2018-11-03] MEDS ORDERED: NACL 0.9% 1000 ML 1,000 ML IV SCH (20:00)
[2018-11-03] MEDS: DILAUDID IV PRN (20:18)
[2018-11-03] MEDS: PEPCID IV SCH (21:45)
[2018-11-03] MEDS: SODIUM CHLORIDE FLUSH SYRINGE 10 ML IV SCH (21:46)
[2018-11-04] MEDS ORDERED: SODIUM CHLORIDE FLUSH SYRINGE 10 ML IV PRN (01:35)
[2018-11-04] MEDS ORDERED: ZOFRAN IV PRN (01:35)
[2018-11-04] MEDS ORDERED: TYLENOL PO PRN (01:35)
[2018-11-04] MEDS: HumaLOG SUB-Q SCH ×4 (04:00→18:36)
[2018-11-04 04:50] LABS: Basophils # (Auto) 0.1 K/mm3 (0.0-0.1); Basophils % (Auto) 0.6 % (0.0-1.8); Eosinophils # (Auto) 0.1 K/mm3 (0.0-0.4); Eosinophils % (Auto) 0.4 % (0.0-4.3); Hematocrit 34.3 % (35.5-45.6); Hemoglobin 11.3 gm/dl (11.8-15.2); Lymphocytes # (Auto) 1.7 K/mm3 (1.2-5.4); Lymphocytes % (Auto) 13.4 % (13.4-35.0); Mean Corpuscular HGB Conc 33 % (32-34); Mean Corpuscular Volume 90 fl (84-94); Monocytes # (Auto) 1.3 K/mm3 (0.0-0.8); Monocytes % (Auto) 9.9 % (0.0-7.3); Platelet Count 292 K/mm3 (140-440); Red Blood Count 3.79 M/mm3 (3.65-5.03); Red Cell Distribution Width 14.1 % (13.2-15.2)
[2018-11-04 05:11] LABS: Alanine Aminotransferase 49 units/L (7-56); Albumin 2.8 g/dL (3.9-5); BUN/Creatinine Ratio 26; Blood Urea Nitrogen 23 mg/dL (9-20); Calcium 8.8 mg/dL (8.4-10.2); Hemolysis Index 3
[2018-11-04] MEDS: ZOSYN/NS 4.5GM/100ML 4.5 GM/100 ML VIAL IV SCH ×4 (06:21→22:44)
[2018-11-04] MEDS: BROVANA NEBU IH SCH ×2 (08:30→20:20)
[2018-11-04] MEDS: PULMICORT IH SCH ×2 (08:30→20:20)
[2018-11-04] MEDS: LOPRESSOR PO SCH ×2 (09:00→22:45)
[2018-11-04] MEDS: PEPCID IV SCH ×2 (09:50→22:44)
[2018-11-04] MEDS: HABITROL TD SCH (09:50)
[2018-11-04] MEDS ORDERED: NON-FORMULARY (Fluticasone/Vilanterol [Breo Ellipta 200-25 Mcg Inh] 1 EACH) IH SCH (10:00)
[2018-11-04] MEDS ORDERED: SODIUM CHLORIDE FLUSH SYRINGE 10 ML IV SCH (10:00)
[2018-11-04] MEDS: DILAUDID IV PRN (10:02)
[2018-11-04] MEDS: SODIUM CHLORIDE FLUSH SYRINGE 10 ML IV SCH ×2 (10:03→22:44)
[2018-11-04] MEDS ORDERED: PNEUMOVAX 23 IM ONE (12:00)
[2018-11-04] MEDS: TYLENOL PO PRN ×2 (12:36→17:18)
--- NOTE | 2018-11-04 13:16 | Progress Note ---
Assessment and Plan 67 yo M with elevated WBC, tachycardia, urinary retention, ?perirectal abscess Plan: 1. On exam patient does not have a perirectal abscess but evidence of surgery in the perianal area. He has soft tissue prominence likely due to the surgery and mucous drainage from the rectum can be seen commonly after colostomy creation and with chronic inflammation in the rectal tissues from fistula. 2. I reviewed the CT images and report. I also discussed the report with radiologist Dr. Zuleta. The patient does not have a known hx of colorectal cancer. After discussing the history of chronic anal fistula and surgery to the perianal area due to this diagnosis, the findings on the CT are likely related to chronic infection and not metastatic colon cancer. Dr Zuleta was presuming a hx of colon cancer but was not given a history prior to reading the CT. There is no colon mass on CT. Dr. Zuleta recommends obtaining an old CT scan for comparison if possible. 3. Reg diet 4. IVF 5. empiric antibiotics and further w/u for leukocytosis per 1' team 6. obtain old CT scan results if possible. 7. GI and onc consulted per 1' service. No acute surgical intervention at this time. Pt needs GI follow up for colonoscopy and colorectal surgery follow up at [facility] on discharge. Thank you, please call with questions. Subjective Date of service: 11/04/18 Narrative: Pt seen and examined. c/o shivering that just started 10 minutes ago. States this has been happening on and off while he has been in the hospital. No abdominal pain. No other complaints. I spoke the patient's daughter yesterday to clarify his history. He does not have a history of colon cancer. He has a history of chronic anal fistula for the last 33 years. He has had multiple anal surgeries in the past and a colostomy due to chronic infection from the fistula. He was unable to have the colostomy reversed due to chronic infections. Objective Vital Signs - 12hr 11/04/18 11/04/18 11/04/18 05:00 07:20 08:30 Temperature 99.4 F 99.5 F Pulse Rate 83 70 Pulse Rate [ 70 Bilateral Throughout] Respiratory 19 Rate Respiratory 18 Rate [Bilateral Throughout] Blood Pressure 126/69 116/57 [Right] O2 Sat by Pulse 94 95 Oximetry 11/04/18 11/04/18 11/04/18 10:00 10:02 12:00 Temperature 100.1 F H Pulse Rate 98 H Pulse Rate [ 72 Bilateral Throughout] Respiratory 20 18 Rate Respiratory 18 Rate [Bilateral Throughout] Blood Pressure 144/44 [Right] O2 Sat by Pulse 96 Oximetry - General physical appearance Narrative Exam: Gen: AAOx3. shivering CV: S1, S2+ resp: even and unlabored Abd: soft, NT, colostomy Ext; no c/c/e - Labs 11/04/18 04:28 11/04/18 04:28 Diabetes panel 11/03/18 11/04/18 Range/Units 10:46 04:28 Sodium 135 L (137-145) mmol/L Potassium 4.1 (3.6-5.0) mmol/L Chloride 98.6 (98-107) mmol/L Carbon Dioxide 25 (22-30) mmol/L BUN 23 H (9-20) mg/dL Creatinine 0.9 (0.8-1.5) mg/dL Glucose 139 H (75-100) mg/dL Hemoglobin A1c 7.1 H (4-6) % Calcium 8.8 (8.4-10.2) mg/dL AST 61 H (5-40) units/L ALT 49 (7-56) units/L Alkaline Phosphatase 94 (35-129) units/L Total Protein 7.3 (6.3-8.2) g/dL Albumin 2.8 L (3.9-5) g/dL Calcium panel 11/04/18 Range/Units 04:28 Calcium 8.8 (8.4-10.2) mg/dL Albumin 2.8 L (3.9-5) g/dL Pituitary panel 11/04/18 Range/Units 04:28 Sodium 135 L (137-145) mmol/L Potassium 4.1 (3.6-5.0) mmol/L Chloride 98.6 (98-107) mmol/L Carbon Dioxide 25 (22-30) mmol/L BUN 23 H (9-20) mg/dL Creatinine 0.9 (0.8-1.5) mg/dL Glucose 139 H (75-100) mg/dL Calcium 8.8 (8.4-10.2) mg/dL Adrenal panel 11/04/18 Range/Units 04:28 Sodium 135 L (137-145) mmol/L Potassium 4.1 (3.6-5.0) mmol/L Chloride 98.6 (98-107) mmol/L Carbon Dioxide 25 (22-30) mmol/L BUN 23 H (9-20) mg/dL Creatinine 0.9 (0.8-1.5) mg/dL Glucose 139 H (75-100) mg/dL Calcium 8.8 (8.4-10.2) mg/dL Total Bilirubin 0.50 (0.1-1.2) mg/dL AST 61 H (5-40) units/L ALT 49 (7-56) units/L Alkaline Phosphatase 94 (35-129) units/L Total Protein 7.3 (6.3-8.2) g/dL Albumin 2.8 L (3.9-5) g/dL
[2018-11-04] MEDS: D5NS 1,000 ML IV SCH (13:17)
--- NOTE | 2018-11-04 14:57 | Progress Note ---
Assessment and Plan (1)SIRS Current Visit: No Status: Acute Plan to address problem: No source of infection found Empiric abx for now-Zosyn Cultures pending (2) Anal fistula Current Visit: No Status: Chronic Plan to address problem: Healed, cont wound care (3) Colostomy care Current Visit: No Status: Chronic discussed with dr. Parra, no h/o colon cancer and further review of abdomen showed no colonic mass (4) HTN (hypertension) Current Visit: No Status: Chronic Qualifiers: Hypertension type: essential hypertension Qualified Code(s): I10 - Essential (primary) hypertension Plan to address problem: Cont antihypertensives (5) Nicotine addiction Current Visit: No Status: Chronic Qualifiers: Nicotine product type: cigarettes Plan to address problem: Nicoderm patch (6) HLD (hyperlipidemia) Current Visit: Yes Status: Chronic Qualifiers: Hyperlipidemia type: mixed hyperlipidemia Qualified Code(s): E78.2 - Mixed hyperlipidemia Plan to address problem: Cont statins (7) COPD (chronic obstructive pulmonary disease) Current Visit: Yes Status: Chronic Qualifiers: Emphysema type: unspecified Plan to address problem: Cont Ellipta and Duonebs (8) T2DM (type 2 diabetes mellitus) Current Visit: Yes Status: Chronic Qualifiers: Diabetes mellitus prison insulin use: without intermodal dispatcher use Plan to address problem: Coverage for now (9) Urinary retention Current Visit: Yes Status: Acute Plan to address problem: Little inserted Urology consult requested start on flomax (10) Malnutrition Current Visit: Yes Status: Chronic Qualifiers: Protein-calorie malnutrition severity: moderate Plan to address problem: Dietitian consult requested for oral supplements (11) DVT prophylaxis Current Visit: Yes Status: Acute Plan to address problem: On Lovenox and GI prophylaxis Subjective Date of service: 11/04/18 Interval history: patient seen and examined doing lot better, little in place at bedside updated Objective - Constitutional Vitals: Vital Signs - 12hr 11/04/18 11/04/18 11/04/18 05:00 07:20 08:30 Temperature 99.4 F 99.5 F Pulse Rate 83 70 Pulse Rate [ 70 Bilateral Throughout] Respiratory 19 Rate Respiratory 18 Rate [Bilateral Throughout] Blood Pressure 126/69 116/57 [Right] O2 Sat by Pulse 94 95 Oximetry 11/04/18 11/04/18 11/04/18 10:00 10:02 12:00 Temperature 100.1 F H Pulse Rate 98 H Pulse Rate [ 72 Bilateral Throughout] Respiratory 20 18 Rate Respiratory 18 Rate [Bilateral Throughout] Blood Pressure 144/44 [Right] O2 Sat by Pulse 96 Oximetry General appearance: Present: no acute distress, well-nourished - EENT Eyes: PERRL, EOM intact ENT: hearing intact, clear oral mucosa Ears: bilateral: normal - Neck Neck: supple, normal ROM - Respiratory Respiratory effort: normal Respiratory: bilateral: CTA - Cardiovascular Rhythm: regular Heart Sounds: Present: S1 & S2. Absent: gallop, rub Extremities: pulses intact, No edema, normal color, Full ROM - Gastrointestinal General gastrointestinal: Present: soft, non-tender, non-distended, normal bowel sounds - Integumentary Integumentary: clear, warm, dry - Musculoskeletal Musculoskeletal: 1, strength equal bilaterally - Neurologic Neurologic: moves all extremities - Psychiatric Psychiatric: memory intact, appropriate mood/affect, intact judgment & insight - Labs CBC & Chem 7: 11/05/18 13:15 11/05/18 13:15 Labs: Abnormal lab results 11/03/18 11/04/18 11/04/18 Range/Units 10:46 04:28 04:28 WBC 12.8 H (4.5-11.0) K/mm3 Hgb 11.3 L (11.8-15.2) gm/dl Hct 34.3 L (35.5-45.6) % [place] % (Auto) 9.9 H (0.0-7.3) % [place] # 1.3 H (0.0-0.8) K/mm3 Seg Neutrophils % 75.7 H (40.0-70.0) % Seg Neutrophils # 9.7 H (1.8-7.7) K/mm3 Sodium 135 L (137-145) mmol/L BUN 23 H (9-20) mg/dL Glucose 139 H (75-100) mg/dL POC Glucose (70-105) Hemoglobin A1c 7.1 H (4-6) % AST 61 H (5-40) units/L Albumin 2.8 L (3.9-5) g/dL 11/04/18 11/04/18 Range/Units 06:37 11:23 WBC (4.5-11.0) K/mm3 Hgb (11.8-15.2) gm/dl Hct (35.5-45.6) % [place] % (Auto) (0.0-7.3) % [place] # (0.0-0.8) K/mm3 Seg Neutrophils % (40.0-70.0) % Seg Neutrophils # (1.8-7.7) K/mm3 Sodium (137-145) mmol/L BUN (9-20) mg/dL Glucose (75-100) mg/dL POC Glucose 130 H 149 H (70-105) Hemoglobin A1c (4-6) % AST (5-40) units/L Albumin (3.9-5) g/dL - Imaging and cardiology Chest x-ray: report reviewed CT scan - abdomen: report reviewed
[2018-11-04] MEDS: CATAPRES-TTS PATCH TD SCH (17:11)
[2018-11-04] MEDS: LOVENOX SUB-Q SCH (22:45)
[2018-11-05] MEDS: HumaLOG SUB-Q SCH ×4 (00:25→18:42)
[2018-11-05] MEDS: TYLENOL PO PRN ×2 (01:35→18:42)
[2018-11-05] MEDS: D5NS 1,000 ML IV SCH (02:05)
[2018-11-05] MEDS: DILAUDID IV PRN ×2 (02:06→22:21)
[2018-11-05] MEDS: ZOSYN/NS 4.5GM/100ML 4.5 GM/100 ML VIAL IV SCH ×3 (06:19→21:49)
[2018-11-05] MEDS: PULMICORT IH SCH ×2 (07:15→19:24)
[2018-11-05] MEDS: BROVANA NEBU IH SCH ×2 (07:15→19:24)
--- NOTE | 2018-11-05 08:17 | Event Note ---
Date: 11/05/18 [id number]
[2018-11-05 13:28] LABS: Basophils # (Auto) 0.1 K/mm3 (0.0-0.1); Basophils % (Auto) 0.9 % (0.0-1.8); Eosinophils # (Auto) 0.1 K/mm3 (0.0-0.4); Eosinophils % (Auto) 1.1 % (0.0-4.3); Hematocrit 34.7 % (35.5-45.6); Hemoglobin 11.6 gm/dl (11.8-15.2); Lymphocytes # (Auto) 1.1 K/mm3 (1.2-5.4); Lymphocytes % (Auto) 10.8 % (13.4-35.0); Mean Corpuscular HGB Conc 33 % (32-34); Mean Corpuscular Volume 91 fl (84-94); Monocytes % (Auto) 10.3 % (0.0-7.3); Platelet Count 262 K/mm3 (140-440); Red Cell Distribution Width 14.5 % (13.2-15.2)
[2018-11-05 13:40] LABS: BUN/Creatinine Ratio 18; Blood Urea Nitrogen 16 mg/dL (9-20); Calcium 8.8 mg/dL (8.4-10.2); Hemolysis Index 4
[2018-11-05] MEDS: FLOMAX PO SCH (13:45)
[2018-11-05] MEDS: HABITROL TD SCH (13:56)
[2018-11-05] MEDS: PEPCID IV SCH ×2 (13:56→21:45)
[2018-11-05] MEDS: LOPRESSOR PO SCH (13:56)
[2018-11-05] MEDS: SODIUM CHLORIDE FLUSH SYRINGE 10 ML IV SCH ×2 (13:56→21:37)
--- NOTE | 2018-11-05 17:34 | Consultation ---
History of Present Illness - Reason for Consult Consult date: 11/05/18 Rectal mass Requesting physician: AGUSTINA LANDRY - History of Present Illness Mr. Esquivel is a 67-year-old man on whom I am consulted for evaluation of possible rectal mass. He noted discomfort on sitting, and after having come here 4 days ago for difficulty urinating, he represented. He had a CT scan performed which was read as showing a 10 x 4 cm mass in the presacral region with bony destruction. This was initially presumed to be malignant and therefore consultation was obtained. However, please see Dr. Parra's note from today where it appears that the masses likely much more of a chronic finding and related infection and not malignancy. Patient was seen by Dr. montes in my group for perianal infection in 2014. He has a known history of an anal fistula 33 years ago, and in 2002, he underwent further surgery of the fistula with a colostomy at that time for chronic infection. The colostomy could not be reversed due to ongoing problems with chronic infection. Patient was advised to have an outpatient colonoscopy via the colostomy at that time and it is unclear whether or not he did so. Patient denies abdominal pain nausea vomiting or weight loss. There's been no fevers chills or sweats. His colostomy output is unchanged. He does note some steffi-anal or rectal discharge at times. Past History Past Medical History: COPD, hypertension, hyperlipidemia, other (chronic anal fistula) Past Surgical History: Other (drainage of anal fistula, colostomy) Social history: no significant social history Family history: no significant family history Medications and Allergies Allergies Allergy/AdvReac Type Severity Reaction Status Date / Time No Known Allergies Allergy Verified 09/03/13 10:59 Home Medications Medication Instructions Recorded Confirmed Last Taken Type Allopurinol [Zyloprim] 300 mg PO QDAY 11/03/18 11/03/18 Unknown History Amlodipine Besylate [Norvasc] 10 mg PO QDAY 11/03/18 11/03/18 Unknown History Atorvastatin Calcium [Lipitor] 20 mg PO QDAY 11/03/18 11/03/18 Unknown History Fluticasone/Vilanterol [Breo 1 each IH QDAY 11/03/18 11/03/18 Unknown History Ellipta 200-25 Mcg INH] Metoprolol [Lopressor] 25 mg PO BID 11/03/18 11/03/18 Unknown History Olmesartan/Hydrochlorothiazide 1 each PO QDAY 11/03/18 11/03/18 Unknown History [Olmesartan-Hctz 40-25 mg Tab] Potassium Chloride [Klor-Con 10] 10 meq PO QDAY 11/03/18 11/03/18 Unknown History Active Meds: Active Medications Acetaminophen (Tylenol) 650 mg PO Q4H PRN PRN Reason: Pain MILD(1-3)/Fever >100.5/MALDONADO Last Admin: 11/05/18 01:35 Dose: 650 mg Documented by: Arformoterol Tartrate (Brovana Nebu) 15 mcg IH Q12HRT [facility]IS Last Admin: 11/05/18 07:15 Dose: 15 mcg Documented by: Budesonide (Pulmicort) 1 mg IH Q12HRT [facility]IS Last Admin: 11/05/18 07:15 Dose: 1 mg Documented by: Clonidine HCl (Catapres-Tts Patch) 0.2 mg TD Sa [facility] Last Admin: 11/04/18 17:11 Dose: Not Given Documented by: Enoxaparin Sodium (Lovenox) 40 mg SUB-Q QDAY@2200 [facility] Last Admin: 11/04/18 22:45 Dose: 40 mg Documented by: Famotidine (Pepcid) 20 mg IV BID [facility] Last Admin: 11/05/18 13:56 Dose: Not Given Documented by: Hydromorphone HCl (Dilaudid) 0.5 mg IV Q3H PRN PRN Reason: Pain , Severe (7-10) Last Admin: 11/05/18 02:06 Dose: 0.5 mg Documented by: Piperacillin Sod/Tazobactam Sod (Zosyn/Ns 4.5gm/100ml) 4.5 gm in 100 mls @ 200 mls/hr IV Q8H LUIS; Protocol Last Admin: 11/05/18 13:45 Dose: 200 mls/hr Documented by: Dextrose/Sodium Chloride (D5ns) 1,000 mls @ 100 mls/hr IV DIRECT [facility] Last Admin: 11/05/18 02:05 Dose: 100 mls/hr Documented by: Insulin Human Lispro (Humalog) 0 unit SUB-Q Q6HR [facility]IS; Protocol Last Admin: 11/05/18 13:56 Dose: Not Given Documented by: Metoprolol Tartrate (Lopressor) 25 mg PO BID [facility] Last Admin: 11/05/18 13:56 Dose: Not Given Documented by: Nicotine (Habitrol) 14 mg TD QDAY [facility] Last Admin: 11/05/18 13:56 Dose: Not Given Documented by: Ondansetron HCl (Zofran) 4 mg IV Q8H PRN PRN Reason: Nausea And Vomiting Sodium Chloride (Sodium Chloride Flush Syringe 10 Ml) 10 ml IV BID [facility] Last Admin: 11/05/18 13:56 Dose: Not Given Documented by: Sodium Chloride (Sodium Chloride Flush Syringe 10 Ml) 10 ml IV PRN PRN PRN Reason: LINE FLUSH Tamsulosin HCl (Flomax) 0.4 mg PO QDAY [facility] Last Admin: 11/05/18 13:45 Dose: 0.4 mg Documented by: Review of Systems All systems: negative (as noted) Exam - Constitutional Vitals: Temp Pulse Resp BP Pulse Ox 97.9 F 73 20 151/51 97 11/05/18 08:30 11/05/18 08:30 11/05/18 08:30 11/05/18 08:30 11/05/18 08:30 General appearance: Present: no acute distress - EENT Eyes: Present: PERRL, EOM intact ENT: hearing intact - Neck Neck: Present: supple - Respiratory Respiratory effort: normal Respiratory: bilateral: CTA - Cardiovascular Rhythm: regular Heart Sounds: Present: S1 & S2 - Abdominal General gastrointestinal: Present: soft, non-tender, other (Colostomy in LLQ) - Rectal Rectal Exam: other (Surgical deformity with bulging area of soft tissue on R side of anus, extending 6 cm. Nontender.) Results - Labs CBC & Chem 7: 11/05/18 13:15 11/05/18 13:15 Labs: Abnormal lab results 11/04/18 11/05/18 11/05/18 Range/Units 22:24 06:13 13:15 Hgb 11.6 L (11.8-15.2) gm/dl Hct 34.7 L (35.5-45.6) % Lymph % (Auto) 10.8 L (13.4-35.0) % [place] % (Auto) 10.3 H (0.0-7.3) % Lymph # 1.1 L (1.2-5.4) K/mm3 [place] # 1.0 H (0.0-0.8) K/mm3 Seg Neutrophils % 76.9 H (40.0-70.0) % Glucose (75-100) mg/dL POC Glucose 143 H 148 H (70-105) 11/05/18 11/05/18 Range/Units 13:15 13:20 Hgb (11.8-15.2) gm/dl Hct (35.5-45.6) % Lymph % (Auto) (13.4-35.0) % [place] % (Auto) (0.0-7.3) % Lymph # (1.2-5.4) K/mm3 [place] # (0.0-0.8) K/mm3 Seg Neutrophils % (40.0-70.0) % Glucose 155 H (75-100) mg/dL POC Glucose 135 H (70-105) Assessment and Plan 1. Perirectal finding on CT - likely chronic and due to known prior infection. Doubt related to inflammatory bowel disease. Doubt malignancy. Patient may well have some chronic infection or possibly hidradenitis accounting for this. I agree with Dr. Parra that patient would best be evaluated by a colorectal surgeon. No further GI evaluation at present. - Would recommend a colonoscopy as an outpatient. This can be done by us or by the colorectal surgeon. No further recommendations at present. Will sign off.
[2018-11-05] MEDS: LOVENOX SUB-Q SCH (21:36)
[2018-11-06] MEDS: HumaLOG SUB-Q SCH ×5 (00:15→23:12)
[2018-11-06] MEDS: LOPRESSOR PO SCH ×3 (00:17→21:25)
--- NOTE | 2018-11-06 01:10 | Consultation ---
REASON FOR CONSULTATION: Pelvic/sacral mass. HISTORY OF PRESENT ILLNESS: I saw the patient, a 67-year-old male on the medical floor. He informed me that he has a history of a diverting colostomy for what appears to be an anal fistula. He came to the hospital because of urinary retention. During this admission, radiology showed a suspected presacral mass. The note from the surgical team mentions that this does not appear to be colon cancer, but more of an infection. There is a plan to compare with the old CT scan. The patient denies a previous history of colon cancer. At this time, no headache and no visual disturbances. No ear discharge, no chest pain, no palpitation, no shortness of breath, no abdominal pain. Has a colostomy. No seizure or syncope. No loss of consciousness. REVIEW OF SYSTEMS: ____ history of urinary retention and suprapubic discomfort. SOCIAL HISTORY: History of smoking present. HOME MEDICATIONS: Include amlodipine, allopurinol, metoprolol, HCTZ. PAST MEDICAL HISTORY: Hypertension. PAST SURGICAL HISTORY: Colostomy. PHYSICAL EXAMINATION: VITAL SIGNS: Temperature 97.0, pulse 73, respirations 20, BP 112/53. No pallor, no icterus. NECK: No neck lymph nodes. HEART: S1, S2. LUNGS: Clear to auscultation. ABDOMEN: Soft. Colostomy present. EXTREMITIES: No calf tenderness. NEUROLOGIC: Alert, awake, and answers questions appropriately. LABORATORY DATA: White cell 9, hemoglobin 11.6, MCV 91, platelet 262, potassium 4.2, creatinine 0.9, calcium 8.8. RADIOLOGY: Abdominal CT done on 11/03/2018 mentions 3 sacral/coccygeal soft tissue abnormalities with bone destruction, suspicious for metastases. However, the latest surgical notes mention that this may be all infection. Awaiting comparison with previous CT. ASSESSMENT AND PLAN: 1. Presacral mass. The patient has no history of colon cancer. There is a suspicion that this is all infection/inflammation. 2. History of hypertension. 3. Urinary retention. Briscoe is placed. 4. Suspicion of rectal abscess. 5. History of anal fistula. 6. Colostomy care. 7. On allopurinol. 8. Mention of diabetes 9. Mention of COPD. 10. Mention of hyperlipidemia. 11. History of nicotine abuse. 12. We will await Radiology comparison. There is no previous history of colon cancer. I will follow the patient during his inpatient stay. JOB# [id number] LEONARDO/ROQUE
[2018-11-06] MEDS: D5NS 1,000 ML IV SCH ×2 (06:15→16:15)
[2018-11-06] MEDS: ZOSYN/NS 4.5GM/100ML 4.5 GM/100 ML VIAL IV SCH ×3 (06:16→21:23)
--- NOTE | 2018-11-06 07:49 | Hem/Onc Progress Note ---
Assessment and Plan 1. Presacral mass. The patient has no history of colon cancer. There is a suspicion that this is all infection/inflammation. 2. History of hypertension. 3. Urinary retention. Briscoe is placed. 4. Suspicion of rectal abscess. 5. History of anal fistula. 6. Colostomy care. 7. On allopurinol. 8. Mention of diabetes 9. Mention of COPD. 10. Mention of hyperlipidemia. 11. History of nicotine abuse. 12. We will await Radiology comparison. There is no previous history of colon cancer. I will follow the patient during his inpatient stay. 11/06 - d/w daughter - in 2014 - colonoscopy was normal - no cancer - Patient Problems (1) Pelvic mass in male Current Visit: Yes Status: Acute Subjective Date of service: 11/06/18 Objective - Constitutional Vitals: Last Vital Signs Temp 98.8 F 11/06/18 06:11 Pulse 83 11/06/18 06:11 Resp 17 11/06/18 06:11 BP 150/55 11/06/18 06:11 Pulse Ox 2 L 11/06/18 06:11 Pain Intensity (0-10): denies any pain General appearance: no acute distress Performance status: 4-completely disabled - EENT Eyes: EOM intact ENT: clear oral mucosa Lymph node exam: negative cervical - Neck Neck: normal ROM - Respiratory Respiratory effort: Positive: normal Respiratory: bilateral: CTA - Cardiovascular Heart Sounds: Present: S1 & S2 Extremities: No edema - Gastrointestinal General gastrointestinal: Present: soft, other (colostomy+) Rectal Exam: deferred - Genitourinary Male genitourinary: Present: deferred - Integumentary Integumentary: warm - Musculoskeletal Musculoskeletal: strength equal bilaterally - Neurologic Neurologic: moves all extremities - Labs Lab Results: Laboratory Results - last 24 hr 11/05/18 11/05/18 11/05/18 13:15 13:15 13:20 WBC 9.8 RBC 3.80 Hgb 11.6 L Hct 34.7 L MCV 91 MCH 30 MCHC 33 RDW 14.5 Plt Count 262 Lymph % (Auto) 10.8 L [place] % (Auto) 10.3 H Eos % (Auto) 1.1 Baso % (Auto) 0.9 Lymph # 1.1 L [place] # 1.0 H Eos # 0.1 Baso # 0.1 Seg Neutrophils % 76.9 H Seg Neutrophils # 7.5 Sodium 139 Potassium 4.2 Chloride 103.0 Carbon Dioxide 26 Anion Gap 14 BUN 16 Creatinine 0.9 Estimated GFR > 60 BUN/Creatinine Ratio 18 Glucose 155 H POC Glucose 135 H Calcium 8.8 11/05/18 11/05/18 11/06/18 18:26 23:54 06:23 WBC RBC Hgb Hct MCV MCH MCHC RDW Plt Count Lymph % (Auto) [place] % (Auto) Eos % (Auto) Baso % (Auto) Lymph # [place] # Eos # Baso # Seg Neutrophils % Seg Neutrophils # Sodium Potassium Chloride Carbon Dioxide Anion Gap BUN Creatinine Estimated GFR BUN/Creatinine Ratio Glucose POC Glucose 194 H 169 H 157 H Calcium Medications & Allergies - Medications Allergies/Adverse Reactions: Allergies No Known Allergies Allergy (Verified 09/03/13 10:59) Home Medications: Home Medications Medication Instructions Recorded Confirmed Last Taken Type Allopurinol [Zyloprim] 300 mg PO QDAY 11/03/18 11/03/18 Unknown History Amlodipine Besylate [Norvasc] 10 mg PO QDAY 11/03/18 11/03/18 Unknown History Atorvastatin Calcium [Lipitor] 20 mg PO QDAY 11/03/18 11/03/18 Unknown History Fluticasone/Vilanterol [Breo 1 each IH QDAY 11/03/18 11/03/18 Unknown History Ellipta 200-25 Mcg INH] Metoprolol [Lopressor] 25 mg PO BID 11/03/18 11/03/18 Unknown History Olmesartan/Hydrochlorothiazide 1 each PO QDAY 11/03/18 11/03/18 Unknown History [Olmesartan-Hctz 40-25 mg Tab] Potassium Chloride [Klor-Con 10] 10 meq PO QDAY 11/03/18 11/03/18 Unknown History Active Medications: Generic Name Dose Route Start Last Admin Trade Name Freq PRN Reason Stop Dose Admin Acetaminophen 650 mg 11/03/18 18:51 11/05/18 18:42 Tylenol PO 650 mg Q4H PRN Administration Pain MILD(1-3)/Fever >100.5/MALDONADO Arformoterol Tartrate 15 mcg 11/04/18 08:00 11/05/18 19:24 Brovana Nebu IH 15 mcg Q12HRT LUIS Administration Budesonide 1 mg 11/04/18 08:00 11/05/18 19:24 Pulmicort IH 1 mg Q12HRT [facility]IS Administration Clonidine HCl 0.2 mg 11/04/18 10:00 11/04/18 17:11 Catapres-Tts Patch TD Not Given Sa [facility] Enoxaparin Sodium 40 mg 11/04/18 22:00 11/05/18 21:36 Lovenox SUB-Q 40 mg QDAY@2200 [facility] Administration Famotidine 20 mg 11/03/18 22:00 11/05/18 21:45 Pepcid IV 20 mg BID [facility] Administration Hydromorphone HCl 0.5 mg 11/03/18 18:51 11/05/18 22:21 Dilaudid IV 0.5 mg Q3H PRN Administration Pain , Severe (7-10) Piperacillin Sod/Tazobactam Sod 4.5 gm in 100 mls @ 200 mls/hr 11/04/18 14:00 11/06/18 06:16 Zosyn/Ns 4.5gm/100ml IV 200 mls/hr Q8H [facility] Administration Protocol Dextrose/Sodium Chloride 1,000 mls @ 100 mls/hr 11/04/18 13:00 11/06/18 06:15 D5ns IV 100 mls/hr DIRECT [facility] Administration Insulin Human Lispro 0 unit 11/04/18 02:00 11/06/18 06:28 Humalog SUB-Q 2 unit Q6HR [facility] Administration Protocol Metoprolol Tartrate 25 mg 11/04/18 10:00 11/06/18 00:17 Lopressor PO Not Given BID [facility] Nicotine 14 mg 11/04/18 10:00 11/05/18 13:56 Habitrol TD Not Given QDAY [facility] Ondansetron HCl 4 mg 11/03/18 18:51 Zofran IV Q8H PRN Nausea And Vomiting Sodium Chloride 10 ml 11/03/18 22:00 11/05/18 21:37 Sodium Chloride Flush Syringe 10 Ml IV 10 ml BID LUIS Administration Sodium Chloride 10 ml 11/03/18 18:51 Sodium Chloride Flush Syringe 10 Ml IV PRN PRN LINE FLUSH Tamsulosin HCl 0.4 mg 11/05/18 11:00 11/05/18 13:45 Flomax PO 0.4 mg QDAY [facility]IS Administration
[2018-11-06] MEDS: BROVANA NEBU IH SCH ×2 (08:19→20:18)
[2018-11-06] MEDS: PULMICORT IH SCH ×2 (08:19→20:17)
[2018-11-06] MEDS: FLOMAX PO SCH (09:01)
[2018-11-06] MEDS: HABITROL TD SCH (09:01)
[2018-11-06] MEDS: PEPCID IV SCH ×2 (09:01→21:24)
[2018-11-06] MEDS: DILAUDID IV PRN ×2 (09:05→13:34)
--- NOTE | 2018-11-06 10:48 | Progress Note ---
Assessment and Plan (1)SIRS Current Visit: No Status: Acute Plan to address problem: No source of infection found Empiric abx for now-Zosyn Cultures pending (2) Anal fistula Current Visit: No Status: Chronic Plan to address problem: Healed, cont wound care (3) Colostomy care Current Visit: No Status: Chronic discussed with dr. Parra, no h/o colon cancer and further review of abdomen showed no colonic mass (4) HTN (hypertension) Current Visit: No Status: Chronic Qualifiers: Hypertension type: essential hypertension Qualified Code(s): I10 - Essential (primary) hypertension Plan to address problem: Cont antihypertensives (5) Nicotine addiction Current Visit: No Status: Chronic Qualifiers: Nicotine product type: cigarettes Plan to address problem: Nicoderm patch (6) HLD (hyperlipidemia) Current Visit: Yes Status: Chronic Qualifiers: Hyperlipidemia type: mixed hyperlipidemia Qualified Code(s): E78.2 - Mixed hyperlipidemia Plan to address problem: Cont statins (7) COPD (chronic obstructive pulmonary disease) Current Visit: Yes Status: Chronic Qualifiers: Emphysema type: unspecified Plan to address problem: Cont Ellipta and Duonebs (8) T2DM (type 2 diabetes mellitus) Current Visit: Yes Status: Chronic Qualifiers: Diabetes mellitus correction insulin use: without intermediate accountant use Plan to address problem: Coverage for now (9) Urinary retention Current Visit: Yes Status: Acute Plan to address problem: Little inserted Urology consult requested, pending started on flomax (10) Malnutrition Current Visit: Yes Status: Chronic Qualifiers: Protein-calorie malnutrition severity: moderate Plan to address problem: Dietitian consult requested for oral supplements (11) DVT prophylaxis Current Visit: Yes Status: Acute Plan to address problem: On Lovenox and GI prophylaxis Subjective Date of service: 11/06/18 Interval history: patient seen and examined doing lot better, little in place at bedside updated, waiting on urology consult Objective - Exam Narrative Exam: General appearance: Present: no acute distress, well-nourished - EENT Eyes: PERRL, EOM intact ENT: hearing intact, clear oral mucosa Ears: bilateral: normal - Neck Neck: supple, normal ROM - Respiratory Respiratory effort: normal Respiratory: bilateral: CTA - Cardiovascular Rhythm: regular Heart Sounds: Present: S1 & S2. Absent: gallop, rub Extremities: pulses intact, No edema, normal color, Full ROM - Gastrointestinal General gastrointestinal: Present: soft, non-tender, non-distended, normal bowel sounds - Integumentary Integumentary: clear, warm, dry - Musculoskeletal Musculoskeletal: 1, strength equal bilaterally - Neurologic Neurologic: moves all extremities - Psychiatric Psychiatric: memory intact, appropriate mood/affect, intact judgment & insight - Constitutional Vitals: Vital Signs - 12hr 11/05/18 11/06/18 11/06/18 22:51 00:18 06:11 Temperature 99.3 F 98.8 F Pulse Rate 82 83 Pulse Rate [ Bilateral Throughout] Respiratory 17 17 17 Rate Respiratory Rate [Bilateral Throughout] Respiratory Rate [Sacrum] Blood Pressure Blood Pressure [Left] Blood Pressure 130/50 150/55 [Right] O2 Sat by Pulse 96 2 L Oximetry 11/06/18 11/06/18 11/06/18 08:19 08:27 08:38 Temperature 99.1 F Pulse Rate 82 Pulse Rate [ 85 86 Bilateral Throughout] Respiratory 20 Rate Respiratory 18 18 Rate [Bilateral Throughout] Respiratory Rate [Sacrum] Blood Pressure Blood Pressure 144/60 [Left] Blood Pressure [Right] O2 Sat by Pulse 98 Oximetry 11/06/18 11/06/18 11/06/18 08:50 09:01 09:05 Temperature Pulse Rate 82 Pulse Rate [ Bilateral Throughout] Respiratory 20 Rate Respiratory Rate [Bilateral Throughout] Respiratory Rate [Sacrum] Blood Pressure 144/60 Blood Pressure [Left] Blood Pressure [Right] O2 Sat by Pulse 99 Oximetry 11/06/18 10:00 Temperature Pulse Rate Pulse Rate [ Bilateral Throughout] Respiratory Rate Respiratory Rate [Bilateral Throughout] Respiratory 20 Rate [Sacrum] Blood Pressure Blood Pressure [Left] Blood Pressure [Right] O2 Sat by Pulse Oximetry - Labs CBC & Chem 7: 11/05/18 13:15 11/05/18 13:15 Labs: Abnormal lab results 11/05/18 11/05/18 11/05/18 Range/Units 13:15 13:15 13:20 Hgb 11.6 L (11.8-15.2) gm/dl Hct 34.7 L (35.5-45.6) % Lymph % (Auto) 10.8 L (13.4-35.0) % [place] % (Auto) 10.3 H (0.0-7.3) % Lymph # 1.1 L (1.2-5.4) K/mm3 [place] # 1.0 H (0.0-0.8) K/mm3 Seg Neutrophils % 76.9 H (40.0-70.0) % Glucose 155 H (75-100) mg/dL POC Glucose 135 H (70-105) 11/05/18 11/05/18 11/06/18 Range/Units 18:26 23:54 06:23 Hgb (11.8-15.2) gm/dl Hct (35.5-45.6) % Lymph % (Auto) (13.4-35.0) % [place] % (Auto) (0.0-7.3) % Lymph # (1.2-5.4) K/mm3 [place] # (0.0-0.8) K/mm3 Seg Neutrophils % (40.0-70.0) % Glucose (75-100) mg/dL POC Glucose 194 H 169 H 157 H (70-105)
[2018-11-06] MEDS: SODIUM CHLORIDE FLUSH SYRINGE 10 ML IV SCH ×2 (11:42→21:24)
[2018-11-06] MEDS: TYLENOL PO PRN ×2 (13:35→21:23)
--- NOTE | 2018-11-06 14:11 | Progress Note ---
Assessment and Plan /SIRS No source of infection found so far Empiric abx for now-Zosyn , Cultures negative could be perirectal abscess ?? spiking temp, will consult ID / Anal fistula Healed, cont wound care / Colostomy care discussed with dr. Parra, no h/o colon cancer and further review of abdomen showed no colonic mass / HTN (hypertension) Cont antihypertensives / Nicotine addiction Nicoderm patch /HLD (hyperlipidemia) Cont statins / COPD (chronic obstructive pulmonary disease) Cont Ellipta and Duonebs / T2DM (type 2 diabetes mellitus) Coverage for now / Urinary retention Little inserted Urology consult requested, pending started on flomax / Malnutrition, nonspecific albumin low but we need to check prealbumin and does not meet other parameter Dietitian consult requested for oral supplements / DVT prophylaxis On Lovenox Subjective Date of service: 11/06/18 Interval history: patient seen and examined doing lot better, little in place at bedside updated, waiting on urology consult spiking low grade temp Objective - Exam Narrative Exam: General appearance: Present: no acute distress, well-nourished - EENT Eyes: PERRL, EOM intact ENT: hearing intact, clear oral mucosa Ears: bilateral: normal - Neck Neck: supple, normal ROM - Respiratory Respiratory effort: normal Respiratory: bilateral: CTA - Cardiovascular Rhythm: regular Heart Sounds: Present: S1 & S2. Absent: gallop, rub Extremities: pulses intact, No edema, normal color, Full ROM - Gastrointestinal General gastrointestinal: Present: soft, non-tender, non-distended, normal bowel sounds - Integumentary Integumentary: clear, warm, dry - Musculoskeletal Musculoskeletal: 1, strength equal bilaterally - Neurologic Neurologic: moves all extremities - Psychiatric Psychiatric: memory intact, appropriate mood/affect, intact judgment & insight - Constitutional Vitals: Vital Signs - 12hr 11/06/18 11/06/18 11/06/18 06:11 08:19 08:27 Temperature 98.8 F 99.1 F Pulse Rate 83 82 Pulse Rate [ 85 Bilateral Throughout] Respiratory 17 20 Rate Respiratory 18 Rate [Bilateral Throughout] Respiratory Rate [Sacrum] Blood Pressure Blood Pressure 144/60 [Left] Blood Pressure 150/55 [Right] O2 Sat by Pulse 2 L 98 Oximetry 11/06/18 11/06/18 11/06/18 08:38 08:50 09:01 Temperature Pulse Rate 82 Pulse Rate [ 86 Bilateral Throughout] Respiratory Rate Respiratory 18 Rate [Bilateral Throughout] Respiratory Rate [Sacrum] Blood Pressure 144/60 Blood Pressure [Left] Blood Pressure [Right] O2 Sat by Pulse 99 Oximetry 11/06/18 11/06/18 11/06/18 09:05 09:35 10:00 Temperature Pulse Rate Pulse Rate [ Bilateral Throughout] Respiratory 20 20 Rate Respiratory Rate [Bilateral Throughout] Respiratory 20 Rate [Sacrum] Blood Pressure Blood Pressure [Left] Blood Pressure [Right] O2 Sat by Pulse Oximetry 11/06/18 11/06/18 11/06/18 13:24 13:34 13:35 Temperature 100.7 F H Pulse Rate 85 Pulse Rate [ Bilateral Throughout] Respiratory 20 20 20 Rate Respiratory Rate [Bilateral Throughout] Respiratory Rate [Sacrum] Blood Pressure Blood Pressure 166/57 [Left] Blood Pressure [Right] O2 Sat by Pulse 94 Oximetry - Labs CBC & Chem 7: 11/07/18 07:35 11/07/18 07:35 Labs: Abnormal lab results 11/05/18 11/05/18 11/06/18 Range/Units 18:26 23:54 06:23 POC Glucose 194 H 169 H 157 H (70-105) 11/06/18 Range/Units 11:14 POC Glucose 181 H (70-105)
[2018-11-06] MEDS ORDERED: APRESOLINE IV PRN (17:32)
[2018-11-06] MEDS: LOVENOX SUB-Q SCH (21:23)
[2018-11-07] MEDS: TYLENOL PO PRN (01:29)
[2018-11-07] MEDS: D5NS 1,000 ML IV SCH ×2 (01:37→14:20)
[2018-11-07] MEDS: ZOSYN/NS 4.5GM/100ML 4.5 GM/100 ML VIAL IV SCH ×3 (05:50→21:30)
[2018-11-07] MEDS: HumaLOG SUB-Q SCH ×4 (07:46→23:08)
[2018-11-07 07:59] LABS: Basophils # (Auto) 0.1 K/mm3 (0.0-0.1); Basophils % (Auto) 0.7 % (0.0-1.8); Eosinophils # (Auto) 0.1 K/mm3 (0.0-0.4); Eosinophils % (Auto) 0.7 % (0.0-4.3); Hematocrit 31.7 % (35.5-45.6); Hemoglobin 10.7 gm/dl (11.8-15.2); Lymphocytes # (Auto) 1.6 K/mm3 (1.2-5.4); Lymphocytes % (Auto) 10.1 % (13.4-35.0); Mean Corpuscular HGB Conc 34 % (32-34); Mean Corpuscular Volume 90 fl (84-94); Monocytes # (Auto) 1.3 K/mm3 (0.0-0.8); Monocytes % (Auto) 8.5 % (0.0-7.3); Platelet Count 278 K/mm3 (140-440); Red Blood Count 3.51 M/mm3 (3.65-5.03); Red Cell Distribution Width 14.6 % (13.2-15.2)
[2018-11-07] MEDS: PULMICORT IH SCH ×2 (08:22→20:13)
[2018-11-07] MEDS: BROVANA NEBU IH SCH ×2 (08:22→20:12)
[2018-11-07 08:23] LABS: BUN/Creatinine Ratio 15; Blood Urea Nitrogen 12 mg/dL (9-20); Calcium 8.6 mg/dL (8.4-10.2); Hemolysis Index 21
--- NOTE | 2018-11-07 08:29 | Hem/Onc Progress Note ---
Assessment and Plan 1. Presacral mass. The patient has no history of colon cancer. There is a suspicion that this is all infection/inflammation. 2. History of hypertension. 3. Urinary retention. Briscoe is placed. 4. Suspicion of rectal abscess. 5. History of anal fistula. 6. Colostomy care. 7. On allopurinol. 8. Mention of diabetes 9. Mention of COPD. 10. Mention of hyperlipidemia. 11. History of nicotine abuse. 12. We will await Radiology comparison. There is no previous history of colon cancer. I will follow the patient during his inpatient stay. 11/06 - d/w daughter - in 2014 - colonoscopy was normal - no cancer 11/07 - as per note - no colon mass - will follow PRN in pt - Patient Problems (1) Pelvic mass in male Current Visit: Yes Status: Acute Subjective Date of service: 11/07/18 Principal diagnosis: pelvic abn Interval history: no pelvic lesion as per notes Objective - Constitutional Vitals: Last Vital Signs Temp 97.5 F L 11/07/18 07:01 Pulse 68 11/07/18 08:25 Resp 18 11/07/18 08:25 BP 158/76 11/07/18 07:01 Pulse Ox 96 11/07/18 08:27 Pain Intensity (0-10): denies any pain General appearance: no acute distress Performance status: 3-limited selfcare - EENT Eyes: EOM intact ENT: clear oral mucosa Lymph node exam: negative cervical - Neck Neck: normal ROM - Respiratory Respiratory effort: Positive: normal Respiratory: bilateral: CTA - Cardiovascular Heart Sounds: Present: S1 & S2 Extremities: normal temperature - Gastrointestinal General gastrointestinal: Present: soft, other (colostomy) Rectal Exam: deferred - Genitourinary Male genitourinary: Present: deferred - Integumentary Integumentary: warm - Neurologic Neurologic: other (no facial muscle weakness) - Labs Lab Results: Laboratory Results - last 24 hr 11/06/18 11/06/18 11/06/18 11:14 17:07 22:56 WBC RBC Hgb Hct MCV MCH MCHC RDW Plt Count Lymph % (Auto) [place] % (Auto) Eos % (Auto) Baso % (Auto) Lymph # [place] # Eos # Baso # Seg Neutrophils % Seg Neutrophils # Potassium Chloride Carbon Dioxide Anion Gap BUN Creatinine Estimated GFR BUN/Creatinine Ratio Glucose POC Glucose 181 H 106 H 244 H Calcium Prealbumin 11/07/18 11/07/18 11/07/18 00:35 06:26 07:35 WBC 15.7 H RBC 3.51 L Hgb 10.7 L Hct 31.7 L MCV 90 MCH 30 MCHC 34 RDW 14.6 Plt Count 278 Lymph % (Auto) 10.1 L [place] % (Auto) 8.5 H Eos % (Auto) 0.7 Baso % (Auto) 0.7 Lymph # 1.6 [place] # 1.3 H Eos # 0.1 Baso # 0.1 Seg Neutrophils % 80.0 H Seg Neutrophils # 12.6 H Potassium Chloride Carbon Dioxide Anion Gap BUN Creatinine Estimated GFR BUN/Creatinine Ratio Glucose POC Glucose 144 H Calcium Prealbumin 0.074 L 11/07/18 07:35 WBC RBC Hgb Hct MCV MCH MCHC RDW Plt Count Lymph % (Auto) [place] % (Auto) Eos % (Auto) Baso % (Auto) Lymph # [place] # Eos # Baso # Seg Neutrophils % Seg Neutrophils # Potassium 4.6 Chloride 108.9 H Carbon Dioxide 25 Anion Gap 17 BUN 12 Creatinine 0.8 Estimated GFR > 60 BUN/Creatinine Ratio 15 Glucose 150 H POC Glucose Calcium 8.6 Prealbumin Medications & Allergies - Medications Allergies/Adverse Reactions: Allergies No Known Allergies Allergy (Verified 09/03/13 10:59) Home Medications: Home Medications Medication Instructions Recorded Confirmed Last Taken Type Allopurinol [Zyloprim] 300 mg PO QDAY 11/03/18 11/03/18 Unknown History Amlodipine Besylate [Norvasc] 10 mg PO QDAY 11/03/18 11/03/18 Unknown History Atorvastatin Calcium [Lipitor] 20 mg PO QDAY 11/03/18 11/03/18 Unknown History Fluticasone/Vilanterol [Breo 1 each IH QDAY 11/03/18 11/03/18 Unknown History Ellipta 200-25 Mcg INH] Metoprolol [Lopressor] 25 mg PO BID 11/03/18 11/03/18 Unknown History Olmesartan/Hydrochlorothiazide 1 each PO QDAY 11/03/18 11/03/18 Unknown History [Olmesartan-Hctz 40-25 mg Tab] Potassium Chloride [Klor-Con 10] 10 meq PO QDAY 11/03/18 11/03/18 Unknown History Active Medications: Generic Name Dose Route Start Last Admin Trade Name Freq PRN Reason Stop Dose Admin Acetaminophen 650 mg 11/03/18 18:51 11/07/18 01:29 Tylenol PO 650 mg Q4H PRN Administration Pain MILD(1-3)/Fever >100.5/MALDONADO Arformoterol Tartrate 15 mcg 11/04/18 08:00 11/07/18 08:22 Brovana Nebu IH 15 mcg Q12HRT LUIS Administration Budesonide 1 mg 11/04/18 08:00 11/07/18 08:22 Pulmicort IH 0.5 mg Q12HRT [facility]IS Administration Clonidine HCl 0.2 mg 11/04/18 10:00 11/04/18 17:11 Catapres-Tts Patch TD Not Given Sa LUIS Enoxaparin Sodium 40 mg 11/04/18 22:00 11/06/18 21:23 Lovenox SUB-Q 40 mg QDAY@2200 LUIS Administration Famotidine 20 mg 11/03/18 22:00 11/06/18 21:24 Pepcid IV 20 mg BID LUIS Administration Hydralazine HCl 10 mg 11/06/18 17:32 11/06/18 17:43 Apresoline IV 10 mg Q30MIN PRN Administration HTN SYS>180 IRINEO>100 Hydromorphone HCl 0.5 mg 11/03/18 18:51 11/06/18 13:34 Dilaudid IV 0.5 mg Q3H PRN Administration Pain , Severe (7-10) Piperacillin Sod/Tazobactam Sod 4.5 gm in 100 mls @ 200 mls/hr 11/04/18 14:00 11/07/18 05:50 Zosyn/Ns 4.5gm/100ml IV 200 mls/hr Q8H [facility] Administration Protocol Dextrose/Sodium Chloride 1,000 mls @ 100 mls/hr 11/04/18 13:00 11/07/18 01:37 D5ns IV 100 mls/hr DIRECT LUIS Administration Insulin Human Lispro 0 unit 11/04/18 02:00 11/07/18 07:46 Humalog SUB-Q Not Given Q6HR [facility] Protocol Metoprolol Tartrate 25 mg 11/04/18 10:00 11/06/18 21:25 Lopressor PO 25 mg BID LUIS Administration Nicotine 14 mg 11/04/18 10:00 11/06/18 09:01 Habitrol TD 14 mg QDAY LUIS Administration Ondansetron HCl 4 mg 11/03/18 18:51 Zofran IV Q8H PRN Nausea And Vomiting Sodium Chloride 10 ml 11/03/18 22:00 11/06/18 21:24 Sodium Chloride Flush Syringe 10 Ml IV 10 ml BID LUIS Administration Sodium Chloride 10 ml 11/03/18 18:51 Sodium Chloride Flush Syringe 10 Ml IV PRN PRN LINE FLUSH Tamsulosin HCl 0.4 mg 11/05/18 11:00 11/06/18 09:01 Flomax PO 0.4 mg QDAY [facility]IS Administration
[2018-11-07] MEDS: SODIUM CHLORIDE FLUSH SYRINGE 10 ML IV SCH ×2 (09:03→21:31)
[2018-11-07] MEDS: PEPCID IV SCH (09:03)
[2018-11-07] MEDS: HABITROL TD SCH (09:04)
[2018-11-07] MEDS: FLOMAX PO SCH (09:04)
[2018-11-07] MEDS: LOPRESSOR PO SCH ×2 (09:04→21:30)
--- NOTE | 2018-11-07 09:13 | Consultation ---
History of Present Illness - Reason for Consult Consult date: 11/07/18 - History of Present Illness Patient is a 67-year-old male that presents emergency room with complaints of urinary retention. Patient states she's not urinated for 4 days. Patient having lower abdominal pressure. Patient states the pressure is 10 out of 10. Patient states the pressure is better with rest.. Patient states it is worse with movement and palpation. Patient states the pressure is nonradiating. Patient denies fever and chills. Patient denies other pain. Patient denies chest pain shortness of breath. colostomy in past - another institution abd soft little clear CT - + gi findings note +DJD SPINE LITTLE IN GOOD POSITION A/P RETENTION BPH HOME WITH LITTLE START FLOMAX 1QD OUTPT URODYNAMICS - MY OFFICE WILL NANCY PT Past History Past Medical History: COPD, hypertension, hyperlipidemia, other (chronic anal fistula) Past Surgical History: Other (drainage of anal fistula, colostomy) Social history: no significant social history Family history: no significant family history Medications and Allergies Allergies Allergy/AdvReac Type Severity Reaction Status Date / Time No Known Allergies Allergy Verified 09/03/13 10:59 Home Medications Medication Instructions Recorded Confirmed Last Taken Type Allopurinol [Zyloprim] 300 mg PO QDAY 11/03/18 11/03/18 Unknown History Amlodipine Besylate [Norvasc] 10 mg PO QDAY 11/03/18 11/03/18 Unknown History Atorvastatin Calcium [Lipitor] 20 mg PO QDAY 11/03/18 11/03/18 Unknown History Fluticasone/Vilanterol [Breo 1 each IH QDAY 11/03/18 11/03/18 Unknown History Ellipta 200-25 Mcg INH] Metoprolol [Lopressor] 25 mg PO BID 11/03/18 11/03/18 Unknown History Olmesartan/Hydrochlorothiazide 1 each PO QDAY 11/03/18 11/03/18 Unknown History [Olmesartan-Hctz 40-25 mg Tab] Potassium Chloride [Klor-Con 10] 10 meq PO QDAY 11/03/18 11/03/18 Unknown History Active Meds: Active Medications Acetaminophen (Tylenol) 650 mg PO Q4H PRN PRN Reason: Pain MILD(1-3)/Fever >100.5/MALDONADO Last Admin: 11/07/18 01:29 Dose: 650 mg Documented by: Arformoterol Tartrate (Brovana Nebu) 15 mcg IH Q12HRT [facility] Last Admin: 11/07/18 08:22 Dose: 15 mcg Documented by: Budesonide (Pulmicort) 1 mg IH Q12HRT [facility] Last Admin: 11/07/18 08:22 Dose: 0.5 mg Documented by: Clonidine HCl (Catapres-Tts Patch) 0.2 mg TD Sa [facility] Last Admin: 11/04/18 17:11 Dose: Not Given Documented by: Enoxaparin Sodium (Lovenox) 40 mg SUB-Q QDAY@2200 [facility] Last Admin: 11/06/18 21:23 Dose: 40 mg Documented by: Famotidine (Pepcid) 20 mg IV BID [facility] Last Admin: 11/07/18 09:03 Dose: 20 mg Documented by: Hydralazine HCl (Apresoline) 10 mg IV Q30MIN PRN PRN Reason: HTN SYS>180 IRINEO>100 Last Admin: 11/06/18 17:43 Dose: 10 mg Documented by: Hydromorphone HCl (Dilaudid) 0.5 mg IV Q3H PRN PRN Reason: Pain , Severe (7-10) Last Admin: 11/06/18 13:34 Dose: 0.5 mg Documented by: Piperacillin Sod/Tazobactam Sod (Zosyn/Ns 4.5gm/100ml) 4.5 gm in 100 mls @ 200 mls/hr IV Q8H [facility]; Protocol Last Admin: 11/07/18 05:50 Dose: 200 mls/hr Documented by: Dextrose/Sodium Chloride (D5ns) 1,000 mls @ 100 mls/hr IV DIRECT [facility] Last Admin: 11/07/18 01:37 Dose: 100 mls/hr Documented by: Insulin Human Lispro (Humalog) 0 unit SUB-Q Q6HR [facility]; Protocol Last Admin: 11/07/18 07:46 Dose: Not Given Documented by: Metoprolol Tartrate (Lopressor) 25 mg PO BID [facility] Last Admin: 11/07/18 09:04 Dose: 25 mg Documented by: Nicotine (Habitrol) 14 mg TD QDAY [facility] Last Admin: 11/07/18 09:04 Dose: 14 mg Documented by: Ondansetron HCl (Zofran) 4 mg IV Q8H PRN PRN Reason: Nausea And Vomiting Sodium Chloride (Sodium Chloride Flush Syringe 10 Ml) 10 ml IV BID [facility] Last Admin: 11/07/18 09:03 Dose: 10 ml Documented by: Sodium Chloride (Sodium Chloride Flush Syringe 10 Ml) 10 ml IV PRN PRN PRN Reason: LINE FLUSH Tamsulosin HCl (Flomax) 0.4 mg PO QDAY [facility] Last Admin: 11/07/18 09:04 Dose: 0.4 mg Documented by: Exam - Constitutional Vitals: Temp Pulse Resp BP Pulse Ox 97.5 F L 66 18 158/76 96 11/07/18 07:01 11/07/18 09:04 11/07/18 08:25 11/07/18 09:04 11/07/18 08:27 Results - Labs CBC & Chem 7: 11/07/18 07:35 11/07/18 07:35 Labs: Abnormal lab results 11/06/18 11/06/18 11/06/18 Range/Units 11:14 17:07 22:56 WBC (4.5-11.0) K/mm3 RBC (3.65-5.03) M/mm3 Hgb (11.8-15.2) gm/dl Hct (35.5-45.6) % Lymph % (Auto) (13.4-35.0) % Bryan % (Auto) (0.0-7.3) % Bryan # (0.0-0.8) K/mm3 Seg Neutrophils % (40.0-70.0) % Seg Neutrophils # (1.8-7.7) K/mm3 Sodium (137-145) mmol/L Chloride (98-107) mmol/L Glucose (75-100) mg/dL POC Glucose 181 H 106 H 244 H (70-105) Prealbumin (0.200-0.400) g/L 11/07/18 11/07/18 11/07/18 Range/Units 00:35 06:26 07:35 WBC 15.7 H (4.5-11.0) K/mm3 RBC 3.51 L (3.65-5.03) M/mm3 Hgb 10.7 L (11.8-15.2) gm/dl Hct 31.7 L (35.5-45.6) % Lymph % (Auto) 10.1 L (13.4-35.0) % Bryan % (Auto) 8.5 H (0.0-7.3) % Bryan # 1.3 H (0.0-0.8) K/mm3 Seg Neutrophils % 80.0 H (40.0-70.0) % Seg Neutrophils # 12.6 H (1.8-7.7) K/mm3 Sodium (137-145) mmol/L Chloride (98-107) mmol/L Glucose (75-100) mg/dL POC Glucose 144 H (70-105) Prealbumin 0.074 L (0.200-0.400) g/L 11/07/18 Range/Units 07:35 WBC (4.5-11.0) K/mm3 RBC (3.65-5.03) M/mm3 Hgb (11.8-15.2) gm/dl Hct (35.5-45.6) % Lymph % (Auto) (13.4-35.0) % Bryan % (Auto) (0.0-7.3) % Bryan # (0.0-0.8) K/mm3 Seg Neutrophils % (40.0-70.0) % Seg Neutrophils # (1.8-7.7) K/mm3 Sodium 146 H D (137-145) mmol/L Chloride 108.9 H (98-107) mmol/L Glucose 150 H (75-100) mg/dL POC Glucose (70-105) Prealbumin (0.200-0.400) g/L
[2018-11-07] MEDS: DILAUDID IV PRN ×3 (09:15→17:32)
--- NOTE | 2018-11-07 13:03 | Consultation ---
History of Present Illness - Reason for Consult Consult date: 11/07/18 Fevers - History of Present Illness This patient is a 67-year-old male that with a history of Gout and hypertension, Colon CA, colostomy in 2002 due to recurrent fisturla, presented in the ED on 11/03/18 with complaints of soreness in his rectal area, especially when sitting down, as well as mucous discharge for the last 3 days. Patient was seen prior by Dr. montes for perianal infection in 2014. Patient has a know history of an anal fistula 33 years ago, in 2002, he underwent further surgery of the fistula with a colostomy at that time for chronic infection. The colostomy could not be reversed due to ongoing problems with chronic infection. Upon further evaluation, patient states that he has not urinated in 4 days. On admission, WBC 19.2, Creatinine 1.4, Temperature 99.8, HR 103. BP 156/66. Urine culture was not consistent with a UTI. Urine and blood cultures were drawn and show no growth thus far. Chest xray shows no consolidation. Abdomen/Pelvis CT show Large presacral/coccygeal soft tissue mass with bony destruction, most suspicious for metastatic disease in this patient with presumed colorectal carcinoma with postsurgical changes. Patient is a poor historian, but had his daughter at bedside for assistance. Review of Systems: General: + fevers, no chills no rigors HEENT: no new visual disturbance Respiratory: No cough, sputum, hemoptysis or shortness of breath Cardiovascular: No chest pain, syncope Gastrointestinal: No nausea, vomiting. Chronic diarrhea Genitourinary: + oliguria times 4 days. Musculoskeletal: No new or worsening neck pain or back pain Neurologic: No headaches, seizures Hematologic: No easy bruising or bleeding Endocrine: No night sweats. acute weight loss Skin: + purulent drainage from coccyx Psychiatric: No suicidal or homicidal ideation Past History Past Medical History: COPD, hypertension, hyperlipidemia, other (chronic anal fistula) Past Surgical History: Other (drainage of anal fistula, colostomy) Social history: no significant social history Family history: no significant family history Medications and Allergies Allergies Allergy/AdvReac Type Severity Reaction Status Date / Time No Known Allergies Allergy Verified 09/03/13 10:59 Home Medications Medication Instructions Recorded Confirmed Last Taken Type Allopurinol [Zyloprim] 300 mg PO QDAY 11/03/18 11/03/18 Unknown History Amlodipine Besylate [Norvasc] 10 mg PO QDAY 11/03/18 11/03/18 Unknown History Atorvastatin Calcium [Lipitor] 20 mg PO QDAY 11/03/18 11/03/18 Unknown History Fluticasone/Vilanterol [Breo 1 each IH QDAY 11/03/18 11/03/18 Unknown History Ellipta 200-25 Mcg INH] Metoprolol [Lopressor] 25 mg PO BID 11/03/18 11/03/18 Unknown History Olmesartan/Hydrochlorothiazide 1 each PO QDAY 11/03/18 11/03/18 Unknown History [Olmesartan-Hctz 40-25 mg Tab] Potassium Chloride [Klor-Con 10] 10 meq PO QDAY 11/03/18 11/03/18 Unknown History Active Meds: Active Medications Acetaminophen (Tylenol) 650 mg PO Q4H PRN PRN Reason: Pain MILD(1-3)/Fever >100.5/MALDONADO Last Admin: 11/07/18 01:29 Dose: 650 mg Documented by: Arformoterol Tartrate (Brovana Nebu) 15 mcg IH Q12HRT [facility] Last Admin: 11/07/18 08:22 Dose: 15 mcg Documented by: Budesonide (Pulmicort) 1 mg IH Q12HRT [facility] Last Admin: 11/07/18 08:22 Dose: 0.5 mg Documented by: Clonidine HCl (Catapres-Tts Patch) 0.2 mg TD Sa [facility] Last Admin: 11/04/18 17:11 Dose: Not Given Documented by: Enoxaparin Sodium (Lovenox) 40 mg SUB-Q QDAY@2200 [facility] Last Admin: 11/06/18 21:23 Dose: 40 mg Documented by: Famotidine (Pepcid) 20 mg PO BID [facility] Hydralazine HCl (Apresoline) 10 mg IV Q30MIN PRN PRN Reason: HTN SYS>180 IRINEO>100 Last Admin: 11/06/18 17:43 Dose: 10 mg Documented by: Hydromorphone HCl (Dilaudid) 0.5 mg IV Q3H PRN PRN Reason: Pain , Severe (7-10) Last Admin: 11/07/18 09:15 Dose: 0.5 mg Documented by: Piperacillin Sod/Tazobactam Sod (Zosyn/Ns 4.5gm/100ml) 4.5 gm in 100 mls @ 200 mls/hr IV Q8H [facility]; Protocol Last Admin: 11/07/18 05:50 Dose: 200 mls/hr Documented by: Dextrose/Sodium Chloride (D5ns) 1,000 mls @ 100 mls/hr IV DIRECT [facility] Last Admin: 11/07/18 01:37 Dose: 100 mls/hr Documented by: Insulin Human Lispro (Humalog) 0 unit SUB-Q Q6HR [facility]; Protocol Last Admin: 11/07/18 07:46 Dose: Not Given Documented by: Metoprolol Tartrate (Lopressor) 25 mg PO BID [facility] Last Admin: 11/07/18 09:04 Dose: 25 mg Documented by: Nicotine (Habitrol) 14 mg TD QDAY [facility] Last Admin: 11/07/18 09:04 Dose: 14 mg Documented by: Ondansetron HCl (Zofran) 4 mg IV Q8H PRN PRN Reason: Nausea And Vomiting Sodium Chloride (Sodium Chloride Flush Syringe 10 Ml) 10 ml IV BID [facility] Last Admin: 11/07/18 09:03 Dose: 10 ml Documented by: Sodium Chloride (Sodium Chloride Flush Syringe 10 Ml) 10 ml IV PRN PRN PRN Reason: LINE FLUSH Tamsulosin HCl (Flomax) 0.4 mg PO QDAY [facility] Last Admin: 11/07/18 09:04 Dose: 0.4 mg Documented by: Physical Examination - Physical Exam Narrative exam: Constitutional: Alert, cooperative. Mild distress observed Head, Ears, Nose: Normocephalic, atraumatic. External ears, nose normal Eyes: Conjunctivae/corneas clear. No icterus. No ptosis. Neck: Supple, no meningeal signs Oral: dentition poor, no thrush Cardiovascular: S1, S2 normal. Respiratory: Good air entry, clear to auscultation bilaterally GI: Soft, non-tender; bowel sounds normal. No peritoneal signs Musculoskeletal: No pedal edema, no cyanosis. Skin: + purulent drainage from coccyx, cultures sent Hem/Lymphatic: No palpable cervical or supraclavicular nodes. No lymphangitis Psych: Mood ok. Affect normal Neurological: Awake, alert, oriented. - Constitutional Vitals: Vital Signs Temp Pulse Resp BP Pulse Ox 97.5 F L 66 20 158/76 100 11/07/18 07:01 11/07/18 09:04 11/07/18 10:00 11/07/18 09:04 11/07/18 09:15 Temperature -Last 24 Hours Temperature 97.5 F Temperature 98.0 F Temperature 99.2 F Temperature 102.2 F Temperature 98.9 F Temperature 99.7 F Temperature 100.7 F Results - Labs CBC & Chem 7: 11/07/18 07:35 11/07/18 07:35 Labs: Abnormal lab results 11/06/18 11/06/18 11/07/18 Range/Units 17:07 22:56 00:35 WBC (4.5-11.0) K/mm3 RBC (3.65-5.03) M/mm3 Hgb (11.8-15.2) gm/dl Hct (35.5-45.6) % Lymph % (Auto) (13.4-35.0) % O'Brien % (Auto) (0.0-7.3) % O'Brien # (0.0-0.8) K/mm3 Seg Neutrophils % (40.0-70.0) % Seg Neutrophils # (1.8-7.7) K/mm3 Sodium (137-145) mmol/L Chloride (98-107) mmol/L Glucose (75-100) mg/dL POC Glucose 106 H 244 H (70-105) Prealbumin 0.074 L (0.200-0.400) g/L 11/07/18 11/07/18 11/07/18 Range/Units 06:26 07:06 07:35 WBC 15.7 H (4.5-11.0) K/mm3 RBC 3.51 L (3.65-5.03) M/mm3 Hgb 10.7 L (11.8-15.2) gm/dl Hct 31.7 L (35.5-45.6) % Lymph % (Auto) 10.1 L (13.4-35.0) % O'Brien % (Auto) 8.5 H (0.0-7.3) % O'Brien # 1.3 H (0.0-0.8) K/mm3 Seg Neutrophils % 80.0 H (40.0-70.0) % Seg Neutrophils # 12.6 H (1.8-7.7) K/mm3 Sodium (137-145) mmol/L Chloride (98-107) mmol/L Glucose (75-100) mg/dL POC Glucose 144 H 146 H (70-105) Prealbumin (0.200-0.400) g/L 11/07/18 11/07/18 Range/Units 07:35 11:13 WBC (4.5-11.0) K/mm3 RBC (3.65-5.03) M/mm3 Hgb (11.8-15.2) gm/dl Hct (35.5-45.6) % Lymph % (Auto) (13.4-35.0) % O'Brien % (Auto) (0.0-7.3) % O'Brien # (0.0-0.8) K/mm3 Seg Neutrophils % (40.0-70.0) % Seg Neutrophils # (1.8-7.7) K/mm3 Sodium 146 H D (137-145) mmol/L Chloride 108.9 H (98-107) mmol/L Glucose 150 H (75-100) mg/dL POC Glucose 194 H (70-105) Prealbumin (0.200-0.400) g/L Assessment and Plan T Imaging 11/03/2018 Abdomen/Pelvis CT:Large presacral/coccygeal soft tissue mass with bony destruction, most suspicious for metastatic disease in this patient with presumed colorectal carcinoma with postsurgical changes. Cultures: 11/03/18 Blood: no growth to date 11/03/09 Urine: no growth to date A/P: 67-year-old male with a history of Gout and hypertension, Colon CA, colostomy in 2002 due to recurrent fisturla.Apparently he has not urinated in 4 days. He also noted some soreness in his rectal area especially when sitting down as well as mucous discharge for the last 3 days. The patient had a colostomy performed due to a chronic anal fistula. He did have surgical drainage of the anal fistula. From the records he has not had a recent colonoscopy: 1. Sepsis,: evidenced by new fevers and leukocytois, etiology +/- perianal infection. U/A negative for a UTI, Blood cultures are negative thus far. Currently being treated with Zosyn. 2. Large Presacral/Coccygeal Soft tissue Mass with Bony Destruction: history of anal fistula with multiple infections requiring colostomy.CT is most suspicious for metastatic disease with persumed colorectal carcinoma with postsurgical changes. DDX Chronic infections with acute abscess, osteomylitis, hidradenitis, less likely malignancy, fistula formation. 3. Urinary Retention: reports not urinating in 4 days. Briscoe placed, urology consulted, Plan: -f/u blood cultures -Order MRI Pelvis to r/o osteo -Order CRP -Agree with Colorectal surgery consult -continue Maria Luz d/w Dr. Kaushik Mercer, [employer] [facility] M: [phone] O:[phone]
--- NOTE | 2018-11-07 15:25 | Progress Note ---
Assessment and Plan /SIRS vs Sepsis Empiric abx for now-Zosyn , blood/urine Cultures negative could be perirectal abscess vs osteomylitis of sacral/coccyx ?? spiking temp, consulted ID - ordered MRI abdomen / Anal fistula Healed, cont wound care / Colostomy care discussed with dr. Parra, no h/o colon cancer / HTN (hypertension) Cont antihypertensives / Nicotine addiction Nicoderm patch /HLD (hyperlipidemia) Cont statins / COPD (chronic obstructive pulmonary disease) Cont Ellipta and Duonebs / T2DM (type 2 diabetes mellitus) Coverage for now / Urinary retention Little inserted Urology consult requested, pending started on flomax / Malnutrition, nonspecific albumin low but we need to check prealbumin and does not meet other parameter Dietitian consult requested for oral supplements / DVT prophylaxis On Lovenox Subjective Date of service: 11/07/18 Interval history: patient seen and examined doing lot better, little in place spiking low grade temp, discussed with Dr Faulkner Objective - Exam Narrative Exam: General appearance: Present: no acute distress, well-nourished - EENT Eyes: PERRL, EOM intact ENT: hearing intact, clear oral mucosa Ears: bilateral: normal - Neck Neck: supple, normal ROM - Respiratory Respiratory effort: normal Respiratory: bilateral: CTA - Cardiovascular Rhythm: regular Heart Sounds: Present: S1 & S2. Absent: gallop, rub Extremities: pulses intact, No edema, normal color, Full ROM - Gastrointestinal General gastrointestinal: Present: soft, non-tender, non-distended, normal bowel sounds - Integumentary Integumentary: clear, warm, dry - Musculoskeletal Musculoskeletal: 1, strength equal bilaterally - Neurologic Neurologic: moves all extremities - Psychiatric Psychiatric: memory intact, appropriate mood/affect, intact judgment & insight - Constitutional Vitals: Vital Signs - 12hr 11/07/18 11/07/18 11/07/18 03:44 07:01 08:14 Temperature 98.0 F 97.5 F L Pulse Rate 67 66 Pulse Rate [ 66 Bilateral Throughout] Respiratory 20 20 Rate Respiratory 18 Rate [Bilateral Throughout] Respiratory Rate [Sacrum] Blood Pressure 131/62 158/76 O2 Sat by Pulse 99 99 Oximetry 11/07/18 11/07/18 11/07/18 08:25 08:27 09:04 Temperature Pulse Rate 66 Pulse Rate [ 68 Bilateral Throughout] Respiratory Rate Respiratory 18 Rate [Bilateral Throughout] Respiratory Rate [Sacrum] Blood Pressure 158/76 O2 Sat by Pulse 96 Oximetry 11/07/18 11/07/18 11/07/18 09:15 09:45 10:00 Temperature Pulse Rate Pulse Rate [ Bilateral Throughout] Respiratory 20 20 Rate Respiratory Rate [Bilateral Throughout] Respiratory 20 Rate [Sacrum] Blood Pressure O2 Sat by Pulse 100 Oximetry 11/07/18 14:18 Temperature Pulse Rate Pulse Rate [ Bilateral Throughout] Respiratory 20 Rate Respiratory Rate [Bilateral Throughout] Respiratory Rate [Sacrum] Blood Pressure O2 Sat by Pulse Oximetry - Labs CBC & Chem 7: 11/07/18 07:35 11/07/18 07:35 Labs: Abnormal lab results 11/06/18 11/06/18 11/07/18 Range/Units 17:07 22:56 00:35 WBC (4.5-11.0) K/mm3 RBC (3.65-5.03) M/mm3 Hgb (11.8-15.2) gm/dl Hct (35.5-45.6) % Lymph % (Auto) (13.4-35.0) % [place] % (Auto) (0.0-7.3) % [place] # (0.0-0.8) K/mm3 Seg Neutrophils % (40.0-70.0) % Seg Neutrophils # (1.8-7.7) K/mm3 Sodium (137-145) mmol/L Chloride (98-107) mmol/L Glucose (75-100) mg/dL POC Glucose 106 H 244 H (70-105) Prealbumin 0.074 L (0.200-0.400) g/L 11/07/18 11/07/18 11/07/18 Range/Units 06:26 07:06 07:35 WBC 15.7 H (4.5-11.0) K/mm3 RBC 3.51 L (3.65-5.03) M/mm3 Hgb 10.7 L (11.8-15.2) gm/dl Hct 31.7 L (35.5-45.6) % Lymph % (Auto) 10.1 L (13.4-35.0) % [place] % (Auto) 8.5 H (0.0-7.3) % [place] # 1.3 H (0.0-0.8) K/mm3 Seg Neutrophils % 80.0 H (40.0-70.0) % Seg Neutrophils # 12.6 H (1.8-7.7) K/mm3 Sodium (137-145) mmol/L [place] (98-107) mmol/L Glucose (75-100) mg/dL POC Glucose 144 H 146 H (70-105) Prealbumin (0.200-0.400) g/L 11/07/18 11/07/18 Range/Units 07:35 11:13 WBC (4.5-11.0) K/mm3 RBC (3.65-5.03) M/mm3 Hgb (11.8-15.2) gm/dl Hct (35.5-45.6) % Lymph % (Auto) (13.4-35.0) % [place] % (Auto) (0.0-7.3) % [place] # (0.0-0.8) K/mm3 Seg Neutrophils % (40.0-70.0) % Seg Neutrophils # (1.8-7.7) K/mm3 Sodium 146 H D (137-145) mmol/L Ch[place] 108.9 H (98-107) mmol/L Glucose 150 H (75-100) mg/dL POC Glucose 194 H (70-105) Prealbumin (0.200-0.400) g/L
--- NOTE | 2018-11-07 17:41 | Event Note ---
Date: 11/07/18 Physician Attestation: I have personally seen and examined patient. I personally discussed and directed assessment and management with COURTNEY Mercer. 67-year-old male with a history of Colon CA s/p colostomy in 2002 due to recurrent fistula, admitted on 11/03/18 with complaints of soreness in his rectal area, especially when sitting down, as well as mucous discharge for the last 3 days. On exam temp 102, coccygeal area with previous healed surgical scar from which there is a sinus tract open draining copious purulence and very tender to palpation. 11/03/2018 Abdomen/Pelvis CT showed large presacral/coccygeal soft tissue mass with bony destruction. WBC 18K. UA neg. 11/03/18 Blood culture no growth to date. I believe patient has a large presacral and coccygeal abscess +/- coccygeal osteomyelitis +/- coloncutaneous fistula. I personally took culture and sent it to micro. Continue zosyn for now. Check CRP. MRI pelvic to rachel for osteomyelitis. At some point may repeat CT abd with contrast and fistulogram. Discussed with Dr Parra. Flora Bullock MD Infectious Diseases [employer] [facility] M [phone] O [phone]
[2018-11-07] MEDS: LOVENOX SUB-Q SCH (21:30)
[2018-11-07] MEDS: PEPCID PO SCH (21:30)
[2018-11-08] MEDS: ZOSYN/NS 4.5GM/100ML 4.5 GM/100 ML VIAL IV SCH ×3 (05:19→22:07)
[2018-11-08] MEDS: TYLENOL PO PRN (05:20)
[2018-11-08] MEDS: HumaLOG SUB-Q SCH ×3 (05:24→19:44)
[2018-11-08] MEDS: BROVANA NEBU IH SCH ×2 (08:00→20:42)
[2018-11-08] MEDS: PULMICORT IH SCH ×2 (08:00→20:43)
[2018-11-08] MEDS: DILAUDID IV PRN ×2 (09:08→17:56)
[2018-11-08] MEDS: FLOMAX PO SCH (09:08)
[2018-11-08] MEDS: SODIUM CHLORIDE FLUSH SYRINGE 10 ML IV SCH ×2 (09:18→22:10)
--- NOTE | 2018-11-08 09:58 | Progress Note ---
Assessment and Plan 67 yo M with 1. chronic anal fistula 2. leukocytosis and persistent fevers 3. urinary retention Plan: 1. Drainage from sacral area is new finding since examination of patient on 11/04/18. This is likely related to the phlegmon seen on CT scan and patient's history of anal fistula. No signs of subcutaneous abscess 2. Agree with ID recommendations for MRI. This may also allow us to determine if the presacral collection is being adequately drained through the fistula tract 3. wound cultures obtained yesterday 4. continue with wound care to the sacral area 5. Patient has a complex colorectal history. He has been treated for the anal fistula and its complications for the last 33 years. At this point his abscess is freely draining through fistula tract. I do not recommend any aggressive surgical intervention at this time as patient is stable. Will follow up on results of imaging and make further recommendations 6. continue abx Will follow. Thank you, please call with questions. Subjective Date of service: 11/08/18 Narrative: Pt seen and examined. No acute complaints. Tmax 100.6. Seen by Dr. Faulkner yesterday and copious purulent drainage noted from sinus tract in sacral area. Objective Vital Signs - 12hr 11/08/18 11/08/18 11/08/18 04:45 05:20 07:44 Temperature 100.6 F H 99.1 F Pulse Rate 83 Respiratory 22 20 18 Rate Respiratory Rate [Sacrum] Blood Pressure 157/62 171/69 O2 Sat by Pulse 95 Oximetry 11/08/18 11/08/18 11/08/18 07:45 09:08 09:15 Temperature Pulse Rate 68 Respiratory 20 Rate Respiratory 20 Rate [Sacrum] Blood Pressure O2 Sat by Pulse 95 Oximetry - General physical appearance Narrative Exam: Gen: AAOx3. NAD CV: S1, S2+ Resp; even and unlabored Abd: soft Ext; no c/c/e Sacrum: TTP in sacral/coccyx region with copious green purulent drainage from pinpoint opening in skin. No erythema, induration. Skin cleansed and foam dressing applied. - Labs 11/07/18 07:35 11/07/18 07:35
--- NOTE | 2018-11-08 10:12 | Progress Note ---
Assessment and Plan T Imaging 11/03/2018 Abdomen/Pelvis CT:Large presacral/coccygeal soft tissue mass with bony destruction, most suspicious for metastatic disease in this patient with presumed colorectal carcinoma with postsurgical changes. Cultures: 11/03/18 Blood: no growth to date 11/03/09 Urine: no growth to date 11/07/18 coccygeal : no growth to date A/P: 67-year-old male with a history of Gout and hypertension, Colon CA, colostomy in 2002 due to recurrent fisturla.Apparently he has not urinated in 4 days. He also noted some soreness in his rectal area especially when sitting down as well as mucous discharge for the last 3 days. The patient had a colostomy performed due to a chronic anal fistula. He did have surgical drainage of the anal fistula. From the records he has not had a recent colonoscopy: 1. Sepsis,: evidenced by new fevers and leukocytois, etiology +/- perianal infection. U/A negative for a UTI, Blood cultures are negative thus far. Currently being treated with Zosyn. CRP- 29.90 2. Large Presacral/Coccygeal Soft tissue Mass with Bony Destruction: history of anal fistula with multiple infections requiring colostomy.CT is most suspicious for metastatic disease with persumed colorectal carcinoma with postsurgical changes. DDX Chronic infections with acute abscess, osteomylitis, hidradenitis, less likely malignancy, fistula formation. 3. Urinary Retention: reports not urinating in 4 days. Briscoe placed, urology consulted, Plan: -f/u blood cultures -f/u Coccygeal cultures -f/u MRI Pelvis to r/o osteo -Agree with Colorectal surgery consult -continue Zosyn Madonna Mercer NP [facility] M: [phone] O:[phone] Subjective Date of service: 11/08/18 Principal diagnosis: pelvic abn Objective - Constitutional Vitals: Vital Signs Temp Pulse Resp BP Pulse Ox 99.1 F 68 20 171/69 95 11/08/18 07:44 11/08/18 07:45 11/08/18 09:38 11/08/18 07:44 11/08/18 07:45 Temperature -Last 24 Hours Temperature 99.1 F Temperature 100.6 F Temperature 98.9 F Temperature 97.0 F - Labs CBC & Chem 7: 02/05/19 07:35 11/07/18 07:35 Labs: Abnormal lab results 11/07/18 11/07/18 11/07/18 Range/Units 07:06 07:35 11:13 POC Glucose 146 H 194 H (70-105) C-Reactive Protein 29.90 H (0.00-1.30) mg/dL 11/07/18 11/07/18 11/08/18 Range/Units 16:36 22:28 05:22 POC Glucose 156 H 162 H 133 H (70-105) C-Reactive Protein (0.00-1.30) mg/dL
[2018-11-08] MEDS: PEPCID PO SCH ×2 (11:10→21:47)
[2018-11-08] MEDS: LOPRESSOR PO SCH ×2 (11:11→21:47)
[2018-11-08] MEDS: HABITROL TD SCH (11:11)
--- NOTE | 2018-11-08 11:16 | Progress Note ---
Assessment and Plan Imaging 11/03/2018 Abdomen/Pelvis CT:Large presacral/coccygeal soft tissue mass with bony destruction, most suspicious for metastatic disease in this patient with presumed colorectal carcinoma with postsurgical changes. Cultures: 11/03/18 Blood: no growth to date 11/03/18 Urine: no growth to date 11/08/18 Buttocks drainage pending A/P: 67-year-old male with a history of Gout and hypertension, Colon CA, colostomy in 2002 due to recurrent fisturla.Apparently he has not urinated in 4 days. He also noted some soreness in his rectal area especially when sitting down as well as mucous discharge for the last 3 days. The patient had a colostomy performed due to a chronic anal fistula. He did have surgical drainage of the anal fistula. From the records he has not had a recent colonoscopy: 1. Sepsis: still fever, leukocytosis better. Etiology likely large presacral and coccigeal abscess. UA neg. 2. Large Presacral/Coccygeal Soft tissue Mass with Bony Destruction: history of anal fistula with multiple infections requiring colostomy. On exam, coccygeal area with previous healed surgical scar from which there is a sinus tract open draining copious purulence and very tender to palpation, should r/o coccygeal osteomyelitis +/- coloncutaneous fistula. CRP=29. 3. Urinary Retention: reports not urinating in 4 days. Briscoe placed, urology consulted, UA neg. Plan: - f/u blood cultures and drainage culture - Order MRI Pelvis to r/o osteo - pending - continue Zosyn for now - consider repeating CT abd with PO/IV contrast and fistulogram if MRI is inconclusive. - surgery on board Will follow Flora Bullock MD Infectious Diseases [employer] [facility] M [phone] O [phone] Subjective Date of service: 11/08/18 Principal diagnosis: pelvic abn Interval history: Patient feels the same, still fever at 100.6, still coccygeal pain and drainage. Review of Systems: General: +fever, no chills, nightsweats, unintentional weight change, or change in appetite Cutaneous: no rash, pruritus Musculoskeletal: +coccygeal area tenderness and drainage Gastrointestinal: no nausea, vomiting, hematemesis, diarrhea, constipation, melena, bright red blood in stools, fecal incontinence, jaundice Objective - Exam Narrative Exam: General appearance: Alert in NAD, conversant Eyes: anicteric sclerae, moist conjunctivae; no lid-lag; PERRLA HENT: Atraumatic; oropharynx clear with moist mucous membranes and no mucosal ulcerations/no oral thrush; normal hard and soft palate. Normal external ears. Neck: Trachea midline; supple, no thyromegaly or lymphadenopathy Lungs: CTA, with normal respiratory effort and no intercostal retractions CV: RRR, no murmurs Abdomen: Soft, non-tender; no masses or hepatosplenomegaly Extremities: No peripheral edema or extremity lymphadenopathy Skin: coccygeal area with copious purulence Psych: Appropriate affect, alert and oriented to person, place and time. Neuro: alert and oriented x 3. Moving all extermities - Constitutional Vitals: Vital Signs Temp Pulse Resp BP Pulse Ox 99.1 F 68 20 173/66 95 11/08/18 07:44 11/08/18 11:11 11/08/18 09:38 11/08/18 11:11 11/08/18 07:45 Temperature -Last 24 Hours Temperature 99.1 F Temperature 100.6 F Temperature 98.9 F Temperature 97.0 F - Labs CBC & Chem 7: 11/07/18 07:35 11/07/18 07:35 Labs: Abnormal lab results 11/07/18 11/07/18 11/07/18 Range/Units 07:06 07:35 11:13 POC Glucose 146 H 194 H (70-105) C-Reactive Protein 29.90 H (0.00-1.30) mg/dL 11/07/18 11/07/18 11/08/18 Range/Units 16:36 22:28 05:22 POC Glucose 156 H 162 H 133 H (70-105) C-Reactive Protein (0.00-1.30) mg/dL
[2018-11-08 13:32] LABS: Basophils # (Auto) 0.1 K/mm3 (0.0-0.1); Eosinophils # (Auto) 0.2 K/mm3 (0.0-0.4); Eosinophils % (Auto) 1.6 % (0.0-4.3); Hematocrit 31.1 % (35.5-45.6); Hemoglobin 10.3 gm/dl (11.8-15.2); Lymphocytes # (Auto) 1.7 K/mm3 (1.2-5.4); Lymphocytes % (Auto) 15.5 % (13.4-35.0); Mean Corpuscular HGB Conc 33 % (32-34); Mean Corpuscular Volume 90 fl (84-94); Monocytes % (Auto) 8.9 % (0.0-7.3); Platelet Count 322 K/mm3 (140-440); Red Blood Count 3.46 M/mm3 (3.65-5.03); Red Cell Distribution Width 14.9 % (13.2-15.2)
--- NOTE | 2018-11-08 14:11 | Progress Note ---
Assessment and Plan /SIRS vs Sepsis Empiric abx for now-Zosyn , blood/urine Cultures negative could be perirectal abscess vs osteomylitis of sacral/coccyx ?? spiking temp, consulted ID - ordered MRI abdomen and reconsulted GS / Anal fistula Healed, cont wound care / Colostomy care discussed with dr. Parra, no h/o colon cancer / HTN (hypertension) Cont antihypertensives / Nicotine addiction Nicoderm patch /HLD (hyperlipidemia) Cont statins / COPD (chronic obstructive pulmonary disease) Cont Ellipta and Duonebs / T2DM (type 2 diabetes mellitus) Coverage for now / Urinary retention Little inserted Urology consult requested, pending started on flomax / Malnutrition, nonspecific albumin low but we need to check prealbumin and does not meet other parameter Dietitian consult requested for oral supplements / DVT prophylaxis On Lovenox Subjective Date of service: 11/08/18 Principal diagnosis: pelvic abn Interval history: patient seen and examined doing lot better, little in place spiking low grade temp, discussed with Dr Faulkner MRI pending Objective - Exam Narrative Exam: General appearance: Present: no acute distress, well-nourished - EENT Eyes: PERRL, EOM intact ENT: hearing intact, clear oral mucosa Ears: bilateral: normal - Neck Neck: supple, normal ROM - Respiratory Respiratory effort: normal Respiratory: bilateral: CTA - Cardiovascular Rhythm: regular Heart Sounds: Present: S1 & S2. Absent: gallop, rub Extremities: pulses intact, No edema, normal color, Full ROM - Gastrointestinal General gastrointestinal: Present: soft, non-tender, non-distended, normal bowel sounds - Integumentary Integumentary: clear, warm, dry - Musculoskeletal Musculoskeletal: 1, strength equal bilaterally - Neurologic Neurologic: moves all extremities - Psychiatric Psychiatric: memory intact, appropriate mood/affect, intact judgment & insight - Constitutional Vitals: Vital Signs - 12hr 11/08/18 11/08/18 11/08/18 04:45 05:20 07:44 Temperature 100.6 F H 99.1 F Pulse Rate 83 Respiratory 22 20 18 Rate Respiratory Rate [Sacrum] Blood Pressure 157/62 171/69 O2 Sat by Pulse 95 Oximetry 11/08/18 11/08/18 11/08/18 07:45 09:08 09:15 Temperature Pulse Rate 68 Respiratory 20 Rate Respiratory 20 Rate [Sacrum] Blood Pressure O2 Sat by Pulse 95 Oximetry 11/08/18 11/08/18 11/08/18 09:38 11:11 11:41 Temperature 98.6 F Pulse Rate 68 Respiratory 20 24 Rate Respiratory Rate [Sacrum] Blood Pressure 173/66 180/80 O2 Sat by Pulse Oximetry - Labs CBC & Chem 7: 11/08/18 13:12 11/07/18 07:35 Labs: Abnormal lab results 11/07/18 11/07/18 11/07/18 Range/Units 07:35 16:36 22:28 RBC (3.65-5.03) M/mm3 Hgb (11.8-15.2) gm/dl Hct (35.5-45.6) % [place] % (Auto) (0.0-7.3) % [place] # (0.0-0.8) K/mm3 Seg Neutrophils % (40.0-70.0) % Seg Neutrophils # (1.8-7.7) K/mm3 POC Glucose 156 H 162 H (70-105) C-Reactive Protein 29.90 H (0.00-1.30) mg/dL 11/08/18 11/08/18 Range/Units 05:22 13:12 RBC 3.46 L (3.65-5.03) M/mm3 Hgb 10.3 L (11.8-15.2) gm/dl Hct 31.1 L (35.5-45.6) % [place] % (Auto) 8.9 H (0.0-7.3) % [place] # 1.0 H (0.0-0.8) K/mm3 Seg Neutrophils % 73.0 H (40.0-70.0) % Seg Neutrophils # 7.9 H (1.8-7.7) K/mm3 POC Glucose 133 H (70-105) C-Reactive Protein (0.00-1.30) mg/dL
[2018-11-08] MEDS ORDERED: HYDROCHLOROTHIAZIDE PO SCH (14:15)
[2018-11-08] MEDS ORDERED: OLMESARTAN PO SCH (14:15)
--- NOTE | 2018-11-08 17:24 | Magnetic Resonance Report ---
FINAL REPORT EXAM: MR PELVIS WO/W CON HISTORY: evaluate for Osteomylitis TECHNIQUE: Multiplanar, multi sequence MRI of the pelvis was performed with and without intravenous contrast. PRIORS: None. FINDINGS: There is a left gluteal decubitus ulcer with a tract extending from the left medial gluteal subcutane ous tissues into the pelvis anterior to the coccyx and sacrum connecting to a large, irregular absces s which is adjacent to the anterior aspect of the sacrum. The largest transaxial dimensions of this a bscess measure 7.8 centimeters transverse by 3.1 centimeters AP. Maximum craniocaudad dimension is 9. 2 centimeters. There is adjacent edema and enhancement of the sacrum. The superior extent of this abs cess lies at the level of mid S1. The inferior extent is at the level of the tip of the coccyx. There is edema and enhancement within the bilateral piriformis and gluteus medius muscles. Note that the d ecubitus ulcer tract also extends to the posterior aspect of the anus. A Briscoe catheter is present within the urinary bladder. Air within the urinary bladder is likely rela arielle to catheter placement. There is likely a small left hydrocele. Degenerative changes of the hip tiffany ints and lower lumbar spine are seen. Left lower quadrant colostomy is seen. IMPRESSION: 1. Left decubitus ulcer with tract extending into the pelvis which connects to a large abscess lying along the anterior aspect of the sacrum. Findings of osteomyelitis of the sacrum. 2. Left decubitus ulcer tract also extends to the posterior aspect of the anus which may represent an anal fissure. 3. Findings of myositis involving the bilateral piriformis and gluteus medius muscles.
[2018-11-08] MEDS: ZYLOPRIM PO SCH (17:56)
[2018-11-08] MEDS: NORVASC PO SCH (17:56)
[2018-11-08] MEDS: LOVENOX SUB-Q SCH (21:47)
[2018-11-09] MEDS: HumaLOG SUB-Q SCH ×4 (01:24→23:01)
[2018-11-09] MEDS: ZOSYN/NS 4.5GM/100ML 4.5 GM/100 ML VIAL IV SCH ×3 (05:15→21:19)
[2018-11-09] MEDS: NORVASC PO SCH (09:29)
[2018-11-09] MEDS: HABITROL TD SCH (09:29)
[2018-11-09] MEDS: LOPRESSOR PO SCH ×2 (09:29→21:19)
[2018-11-09] MEDS: FLOMAX PO SCH (09:30)
[2018-11-09] MEDS: PEPCID PO SCH ×2 (09:30→21:19)
[2018-11-09] MEDS: HCTZ PO SCH (09:30)
[2018-11-09] MEDS: ZYLOPRIM PO SCH (09:30)
[2018-11-09] MEDS: DILAUDID IV PRN ×2 (09:43→18:08)
[2018-11-09] MEDS: SODIUM CHLORIDE FLUSH SYRINGE 10 ML IV SCH ×2 (09:45→21:20)
[2018-11-09] MEDS: PULMICORT IH SCH ×2 (09:49→19:21)
[2018-11-09] MEDS: BROVANA NEBU IH SCH ×2 (09:50→19:21)
--- NOTE | 2018-11-09 11:37 | Progress Note ---
Assessment and Plan maging 11/03/2018 Abdomen/Pelvis CT:Large presacral/coccygeal soft tissue mass with bony destruction, most suspicious for metastatic disease in this patient with presumed colorectal carcinoma with postsurgical changes. Cultures: 11/03/18 Blood: no growth to date 11/03/18 Urine: no growth to date 11/08/18 Buttocks drainage pending A/P: 67-year-old male with a history of Gout and hypertension, Colon CA, colostomy in 2002 due to recurrent fisturla.Apparently he has not urinated in 4 days. He also noted some soreness in his rectal area especially when sitting down as well as mucous discharge for the last 3 days. The patient had a colostomy performed due to a chronic anal fistula. He did have surgical drainage of the anal fistula. From the records he has not had a recent colonoscopy: 1. Sepsis: Improved, fevers continuing. Etiology likely large presacral and coccigeal abscess. UA neg. 2. Large Presacral/Coccygeal Soft tissue Mass with Bony Destruction: history of anal fistula with multiple infections requiring colostomy. On exam, coccygeal area with previous healed surgical scar from which there is a sinus tract open draining copious purulence and very tender to palpation, should r/o coccygeal osteomyelitis +/- coloncutaneous fistula. CRP=29. Pelvic MRI: Left decubitus ulcer with tract extending into the pelvis which connects to a large abscess lying along the anterior aspect of the sacrum. Findings of osteomyelitis of the sacrum. Left decubitus ulcer tract also extends to the posterior aspect of the anus which may represent an anal fissure.. Findings of myositis involving the bilateral piriformis and gluteus medius muscles CT of abdomen and pelvis with contrast ordered- tentative plan for transgluteal drainage tomorrow 3. Urinary Retention: reports not urinating in 4 days. Briscoe placed, urology consulted, UA neg. Plan: - f/u blood cultures and drainage culture - continue Zosyn for now - surgery on board [facility] M: [phone] O:[phone] Subjective Date of service: 11/09/18 Principal diagnosis: pelvic abn Interval history: Patient seen and examined. Mild distress observed, complained of sacral pain, 6/10 on numeric pain scale. Objective - Exam Narrative Exam: Constitutional: Alert, cooperative. Acute distress observed. Sacral pain Head, Ears, Nose: Normocephalic, atraumatic. External ears, nose normal Eyes: Conjunctivae/corneas clear. No icterus. No ptosis. Neck: Supple, no meningeal signs Oral: dentition poor, no thrush Cardiovascular: S1, S2 normal. Respiratory: Good air entry, clear to auscultation bilaterally GI: Soft, non-tender; bowel sounds normal. No peritoneal signs Musculoskeletal: No pedal edema, no cyanosis. Skin: + purulent drainage from coccyx, dressing changed Hem/Lymphatic: No palpable cervical or supraclavicular nodes. No lymphangitis Psych: Mood ok. Affect normal Neurological: Awake, alert, oriented. - Constitutional Vitals: Vital Signs Temp Pulse Resp BP Pulse Ox 99.3 F 76 18 159/67 96 11/09/18 07:12 11/09/18 09:50 11/09/18 09:50 11/09/18 07:12 11/09/18 09:51 Temperature -Last 24 Hours Temperature 99.3 F Temperature 99.3 F Temperature 99.3 F Temperature 99.1 F Temperature 98.0 F Temperature 98.6 F - Labs CBC & Chem 7: 11/08/18 13:12 11/07/18 07:35 Labs: Abnormal lab results 11/08/18 11/08/18 11/08/18 Range/Units 11:43 13:12 18:08 RBC 3.46 L (3.65-5.03) M/mm3 Hgb 10.3 L (11.8-15.2) gm/dl Hct 31.1 L (35.5-45.6) % [place] % (Auto) 8.9 H (0.0-7.3) % [place] # 1.0 H (0.0-0.8) K/mm3 Seg Neutrophils % 73.0 H (40.0-70.0) % Seg Neutrophils # 7.9 H (1.8-7.7) K/mm3 POC Glucose 162 H 168 H (70-105) 11/09/18 11/09/18 Range/Units 05:09 11:14 RBC (3.65-5.03) M/mm3 Hgb (11.8-15.2) gm/dl Hct (35.5-45.6) % [place] % (Auto) (0.0-7.3) % [place] # (0.0-0.8) K/mm3 Seg Neutrophils % (40.0-70.0) % Seg Neutrophils # (1.8-7.7) K/mm3 POC Glucose 113 H 145 H (70-105)
[2018-11-09] MEDS: COZAAR PO SCH (13:06)
--- NOTE | 2018-11-09 14:08 | Progress Note ---
Assessment and Plan /Sepsis, POA Empiric abx for now-Zosyn , blood/urine Cultures negative likely from perirectal abscess and osteomylitis of sacrum spiking temp, consulted ID - ordered MRI abdomen and reconsulted GS MRI showed: 1. Left decubitus ulcer with tract extending into the pelvis which connects to a large abscess lying along the anterior aspect of the sacrum. Findings of osteomyelitis of the sacrum. 2. Left decubitus ulcer tract also extends to the posterior aspect of the anus which may represent an anal fissure. 3. Findings of myositis involving the bilateral piriformis and gluteus medius muscles. Consulted IR for CT guided drainage / Urinary retention Little inserted in the ER Urology consult requested - recommended to cont little and outpt followup started on flomax / Anal fistula, cont wound care / Colostomy care discussed with dr. Parra, no h/o colon cancer / HTN (hypertension) Cont antihypertensives / Nicotine addiction Nicoderm patch /HLD (hyperlipidemia) Cont statins / COPD (chronic obstructive pulmonary disease) Cont Ellipta and Duonebs / T2DM (type 2 diabetes mellitus) Coverage for now / Mild to moderate Malnutrition, likely from underlying sepsis albumin low with low prealbumin Dietitian consult requested for oral supplements / DVT prophylaxis On Lovenox Brief history: 67 yo M with hx of end colostomy in 2002 due to recurrent anal fistula presents to ER with c/o lower abdominal pain, mucous like discharge from rectum and unable to void for 4 days. Per patient daughter the patient had his first surgery from anal fistula 33 years ago at [facility]. He then had another surgery in 2002 at [facility] to drain the anal fistula and creation of a colostomy. His colostomy could not be reversed due to continued chronic infection in the anal region. A little was placed in the ER for urinary retention and CT abdomen/pelvis obtained which was concerning for colonic mass? GS evaluated the patient and revied the CT abdomen/pelvis and it was concluded that there is no colonic mass but could be a possible perirectal abscess. patient was placed on abx, all cx were negative but continued to spike fever and purulent drainage from perianal region. ID consulted, obtained MRI which showed presacral abscess and sacral osteomylitis. consulted IR for drainage, will need total 6 weeks of abx, pending deep wound cx. Subjective Date of service: 11/09/18 Principal diagnosis: pelvic abn Interval history: patient seen and examined doing lot better, little in place discussed with GS, planned for IR guided drainage jaky tomorrow after repeat CT scan Objective - Exam Narrative Exam: General appearance: Present: no acute distress, well-nourished - EENT Eyes: PERRL, EOM intact ENT: hearing intact, clear oral mucosa Ears: bilateral: normal - Neck Neck: supple, normal ROM - Respiratory Respiratory effort: normal Respiratory: bilateral: CTA - Cardiovascular Rhythm: regular Heart Sounds: Present: S1 & S2. Absent: gallop, rub Extremities: pulses intact, No edema, normal color, Full ROM - Gastrointestinal General gastrointestinal: Present: soft, non-tender, non-distended, normal bowel sounds - Integumentary Integumentary: clear, warm, dry - Musculoskeletal Musculoskeletal: 1, strength equal bilaterally - Neurologic Neurologic: moves all extremities - Psychiatric Psychiatric: memory intact, appropriate mood/affect, intact judgment & insight - Constitutional Vitals: Vital Signs - 12hr 11/09/18 11/09/18 11/09/18 04:29 07:12 08:00 Temperature 99.3 F 99.3 F Pulse Rate 77 65 Pulse Rate [ 75 Bilateral Throughout] Respiratory 20 18 Rate Respiratory 18 Rate [Bilateral Throughout] Blood Pressure 148/58 Blood Pressure 159/67 [Right] O2 Sat by Pulse 96 95 Oximetry 11/09/18 11/09/18 11/09/18 09:43 09:50 09:51 Temperature Pulse Rate Pulse Rate [ 76 Bilateral Throughout] Respiratory 20 Rate Respiratory 18 Rate [Bilateral Throughout] Blood Pressure Blood Pressure [Right] O2 Sat by Pulse 96 Oximetry 11/09/18 11:36 Temperature 98.7 F Pulse Rate 69 Pulse Rate [ Bilateral Throughout] Respiratory 20 Rate Respiratory Rate [Bilateral Throughout] Blood Pressure Blood Pressure 144/63 [Right] O2 Sat by Pulse Oximetry - Labs CBC & Chem 7: 11/08/18 13:12 11/07/18 07:35 Labs: Abnormal lab results 11/08/18 11/08/18 11/09/18 Range/Units 11:43 18:08 05:09 POC Glucose 162 H 168 H 113 H (70-105) 11/09/18 Range/Units 11:14 POC Glucose 145 H (70-105)
--- NOTE | 2018-11-09 14:42 | Progress Note ---
Assessment and Plan 67 yo M with 1. chronic anal fistula 2. pelvic abscess 3. sacral osteomyelitis 4. urinary retention Plan: MRI reviewed - pelvic abscess with connection to sacral area. Sacral osteomyelitis 1. I reviewed the MRI results with the patient and his daughter at the bedside. The abscess appears to be draining through the sacral opening. Recommend IR consult to evaluate for percutaneous drainage of abscess. 2. Continue wound care to sacrum 3. prn pain control 4. IV abx per ID 5. Patient will need colorectal surgery evaluation to address this complex complication of chronic anal fistula. D/W Dr. Allen Thank you, please call with questions. Subjective Date of service: 11/09/18 Narrative: Pt seen and examined. Feels about the same today. No further fevers. Drainage from sacral area controlled with dressing. Tolerating a diet. Objective Vital Signs - 12hr 11/09/18 11/09/18 11/09/18 04:29 07:12 08:00 Temperature 99.3 F 99.3 F Pulse Rate 77 65 Pulse Rate [ 75 Bilateral Throughout] Respiratory 20 18 Rate Respiratory 18 Rate [Bilateral Throughout] Blood Pressure 148/58 Blood Pressure 159/67 [Right] O2 Sat by Pulse 96 95 Oximetry 11/09/18 11/09/18 11/09/18 09:43 09:50 09:51 Temperature Pulse Rate Pulse Rate [ 76 Bilateral Throughout] Respiratory 20 Rate Respiratory 18 Rate [Bilateral Throughout] Blood Pressure Blood Pressure [Right] O2 Sat by Pulse 96 Oximetry 11/09/18 11:36 Temperature 98.7 F Pulse Rate 69 Pulse Rate [ Bilateral Throughout] Respiratory 20 Rate Respiratory Rate [Bilateral Throughout] Blood Pressure Blood Pressure 144/63 [Right] O2 Sat by Pulse Oximetry - General physical appearance Narrative Exam: Gen: AAOx3. NAD CV: s1, s2+ resp: even and unlabored Sacrum: Small opening in sacral area with purulent drainage from this region. + TTP. No overlying cellulitis or fluctuance - Labs 11/08/18 13:12 11/07/18 07:35
--- NOTE | 2018-11-09 15:29 | Event Note ---
Date: 11/09/[address], noted sacral collection. Ordered CT of the abdomen and pelvis with contrast to evaluate collection and to include bony landmarks (not well seen on MRI). NPO after MN. Tentative plan for transgluteal drainage tomorrow.
--- NOTE | 2018-11-09 19:48 | Cat Scan Report ---
FINAL REPORT PROCEDURE: CT abdomen and pelvis with contrast. TECHNIQUE: Computerized axial tomography of the abdomen and pelvis was performed after the IV inject ion of iodinated nonionic contrast. HISTORY: sacral abscess, CT for preop drain planning COMPARISON: No prior studies are available for comparison. FINDINGS: There is some subsegmental atelectasis in the left lower lobe. There are very small bilateral pleural effusions. The heart size is normal. The liver, pancreas and spleen appear normal. The gallbladder i s present. There is no biliary dilatation. There may be a small adenoma in the left adrenal gland. Th is is not certain. Both kidneys appear normal in size and configuration. The abdominal aorta has a no rmal caliber. There is atherosclerotic calcification in the abdominal aorta and both common iliac art eries. There is no retroperitoneal adenopathy. There is a left lower quadrant colostomy. A normal liana endix is visible. There is a small ventral wall hernia containing fat. This is located just superior to the umbilicus. The bladder is decompressed with a Briscoe catheter. The seminal vesicles and prostat e are unremarkable. There is an irregular shaped fluid collection located anterior to the sacrum. Thi s has enhancing margins and is consistent with an abscess. The maximum dimensions are approximately 5 .7 centimeters in width by 3.5 centimeters in depth by 5.1 centimeters height. The abscess extends fa irly high, but still may be approachable with a percutaneous drainage catheter if clinically appropri ate. There is a small right inguinal canal hernia containing fat. The regional skeleton appears intac t. There is degenerative change throughout the lumbar spine. There is fusion of the L4 and L5 vertebr al bodies. IMPRESSION: Very small bilateral pleural effusions. Presacral abscess as described above. Small ventral wall josafat ia containing fat. Small right inguinal canal hernia containing fat. Left lower quadrant colostomy.
[2018-11-09] MEDS: LOVENOX SUB-Q SCH (21:19)
[2018-11-10] MEDS: ZOSYN/NS 4.5GM/100ML 4.5 GM/100 ML VIAL IV SCH ×3 (05:12→22:01)
[2018-11-10] MEDS: HumaLOG SUB-Q SCH ×3 (06:18→17:45)
[2018-11-10] MEDS: BROVANA NEBU IH SCH ×2 (08:22→20:41)
[2018-11-10] MEDS: PULMICORT IH SCH ×2 (08:23→20:41)
[2018-11-10] MEDS: SODIUM CHLORIDE FLUSH SYRINGE 10 ML IV SCH (10:00)
--- NOTE | 2018-11-10 10:44 | Progress Note ---
Assessment and Plan [facility] [place] 11/03/2018 Abdomen/Pelvis CT:Large presacral/coccygeal soft tissue mass with bony destruction, most suspicious for metastatic disease in this patient with presumed colorectal carcinoma with postsurgical changes. Cultures: 11/03/18 Blood: no growth to date 11/03/18 Urine: no growth to date 11/08/18 Buttocks drainage pending A/P: 67-year-old male with a history of Gout and hypertension, Colon CA, colostomy in 2002 due to recurrent fisturla.Apparently he has not urinated in 4 days. He also noted some soreness in his rectal area especially when sitting down as well as mucous discharge for the last 3 days. The patient had a colostomy performed due to a chronic anal fistula. He did have surgical drainage of the anal fistula. From the records he has not had a recent colonoscopy: 1. Sepsis: Resolved Etiology likely large presacral and coccigeal abscess. UA neg. 2. Large Presacral/Coccygeal Soft tissue Mass with Bony Destruction: history of anal fistula with multiple infections requiring colostomy. On exam, coccygeal area with previous healed surgical scar from which there is a sinus tract open draining copious purulence and very tender to palpation, should r/o coccygeal osteomyelitis +/- coloncutaneous fistula. CRP=29. Pelvic MRI: Left decubitus ulcer with tract extending into the pelvis which connects to a large abscess lying along the anterior aspect of the sacrum. Findings of osteomyelitis of the sacrum. Left decubitus ulcer tract also extends to the posterior aspect of the anus which may represent an anal fissure.. Findings of myositis involving the bilateral piriformis and gluteus medius muscles CT of abdomen and pelvis with contrast ordered- tentative plan for transgluteal drainage today 3. Urinary Retention: reports not urinating in 4 days. Briscoe placed, urology consulted, UA neg. Plan: - f/u deep abscess cultures - continue Zosyn for now - surgery on board - Recommended IV/PO contrasted CT pelvis and possible fistulogram to determine fistula location -.will require IV antibiotics for 6 weeks at least, to be determined once deep abscess culture obtained. Dr. Casillas is sanitation officer this weekend, , please call for questions. [facility] M: [id number] O:[phone] Subjective Date of service: 11/10/18 Principal diagnosis: pelvic abn Interval history: Patient seen and examined. Mild distress observed, complained of sacral pain, 8/10 on numeric pain scale. Objective - Exam Narrative Exam: Constitutional: Alert, cooperative. Acute distress observed. Sacral pain Head, Ears, Nose: Normocephalic, atraumatic. External ears, nose normal Eyes: Conjunctivae/corneas clear. No icterus. No ptosis. Neck: Supple, no meningeal signs Oral: dentition poor, no thrush Cardiovascular: S1, S2 normal. Respiratory: Good air entry, clear to auscultation bilaterally GI: Soft, non-tender; bowel sounds normal. No peritoneal signs Musculoskeletal: No pedal edema, no cyanosis. Skin: + coccygeal drainage, +dressing Hem/Lymphatic: No palpable cervical or supraclavicular nodes. No lymphangitis Psych: Mood ok. Affect normal Neurological: Awake, alert, oriented. - Constitutional Vitals: Vital Signs Temp Pulse Resp BP Pulse Ox 99.0 F 78 18 176/72 97 11/10/18 08:05 11/10/18 08:05 11/10/18 08:05 11/10/18 08:05 11/10/18 08:05 Temperature -Last 24 Hours Temperature 99.0 F Temperature 99.0 F Temperature 97.3 F Temperature 98.3 F Temperature 98.7 F - Labs CBC & Chem 7: 11/08/18 13:12 11/07/18 07:35 Labs: Abnormal lab results 11/09/18 11/09/18 11/09/18 Range/Units 11:14 18:01 21:15 POC Glucose 145 H 122 H 138 H (70-105) 11/10/18 Range/Units 06:21 POC Glucose 115 H (70-105)
--- NOTE | 2018-11-10 11:03 | Progress Note ---
Assessment and Plan /Sepsis, POA Empiric abx for now-Zosyn , blood/urine Cultures negative likely from perirectal abscess and osteomylitis of sacrum spiking temp, consulted ID - ordered MRI abdomen and reconsulted GS MRI showed: 1. Left decubitus ulcer with tract extending into the pelvis which connects to a large abscess lying along the anterior aspect of the sacrum. Findings of osteomyelitis of the sacrum. 2. Left decubitus ulcer tract also extends to the posterior aspect of the anus which may represent an anal fissure. 3. Findings of myositis involving the bilateral piriformis and gluteus medius muscles. Consulted IR for CT guided drainage, planned for today / Urinary retention Little inserted in the ER Urology consult requested - recommended to cont little and outpt followup started on flomax / Anal fistula, cont wound care / Colostomy care discussed with dr. Parra, no h/o colon cancer / HTN (hypertension) Cont antihypertensives / Nicotine addiction Nicoderm patch /HLD (hyperlipidemia) Cont statins / COPD (chronic obstructive pulmonary disease) Cont Ellipta and Duonebs / T2DM (type 2 diabetes mellitus) Coverage for now / Mild to moderate Malnutrition, likely from underlying sepsis albumin low with low prealbumin Dietitian consult requested for oral supplements / DVT prophylaxis On Lovenox Brief history: 67 yo M with hx of end colostomy in 2002 due to recurrent anal fistula presents to ER with c/o lower abdominal pain, mucous like discharge from rectum and unable to void for 4 days. Per patient daughter the patient had his first surgery from anal fistula 33 years ago at [facility]. He then had another surgery in 2002 at [facility] to drain the anal fistula and creation of a colostomy. His colostomy could not be reversed due to continued chronic infection in the anal region. A little was placed in the ER for urinary retention and CT abdomen/pelvis obtained which was concerning for colonic mass? GS evaluated the patient and revied the CT abdomen/pelvis and it was concluded that there is no colonic mass but could be a possible perirectal abscess. ivania ent was placed on abx, all cx were negative but continued to spike fever and purulent drainage from perianal region. ID consulted, obtained MRI which showed presacral abscess and sacral osteomylitis. consulted IR for drainage, will need total 6 weeks of abx, pending deep wound cx. Subjective Date of service: 11/10/18 Principal diagnosis: pelvic abn Interval history: patient seen and examined doing lot better, little in place planned for IR guided drainage of pelvic abscess today by IR Objective - Exam Narrative Exam: General appearance: Present: no acute distress, well-nourished - EENT Eyes: PERRL, EOM intact ENT: hearing intact, clear oral mucosa Ears: bilateral: normal - Neck Neck: supple, normal ROM - Respiratory Respiratory effort: normal Respiratory: bilateral: CTA - Cardiovascular Rhythm: regular Heart Sounds: Present: S1 & S2. Absent: gallop, rub Extremities: pulses intact, No edema, normal color, Full ROM - Gastrointestinal General gastrointestinal: Present: soft, non-tender, non-distended, normal bowel sounds - Integumentary Integumentary: clear, warm, dry - Musculoskeletal Musculoskeletal: 1, strength equal bilaterally - Neurologic Neurologic: moves all extremities - Psychiatric Psychiatric: memory intact, appropriate mood/affect, intact judgment & insight - Constitutional Vitals: Vital Signs - 12hr 11/10/18 11/10/18 04:26 08:05 Temperature 99.0 F 99.0 F Pulse Rate 76 78 Respiratory 18 18 Rate Blood Pressure 147/50 Blood Pressure 176/72 [Right] O2 Sat by Pulse 92 97 Oximetry - Labs CBC & Chem 7: 11/08/18 13:12 11/07/18 07:35 Labs: Abnormal lab results 11/09/18 11/09/18 11/09/18 Range/Units 11:14 18:01 21:15 POC Glucose 145 H 122 H 138 H (70-105) 11/10/18 Range/Units 06:21 POC Glucose 115 H (70-105)
--- NOTE | 2018-11-10 13:32 | Event Note ---
Date: 11/10/18 Pt chart reviewed. D/W Dr. Shay and patient is scheduled for drainage of pelvic abscess. The patient has no new complaints. He has been afebrile.
[2018-11-10] MEDS ORDERED: SUBLIMAZE IV ONE (15:00)
[2018-11-10] MEDS ORDERED: VERSED IV ONE (15:27)
[2018-11-10] MEDS: DILAUDID IV PRN (17:27)
[2018-11-10] MEDS: HABITROL TD SCH (17:27)
[2018-11-10] MEDS: COZAAR PO SCH (17:28)
[2018-11-10] MEDS: FLOMAX PO SCH (17:28)
[2018-11-10] MEDS: NORVASC PO SCH (17:29)
[2018-11-10] MEDS: ZYLOPRIM PO SCH (17:30)
[2018-11-10] MEDS: PEPCID PO SCH ×2 (17:30→21:07)
[2018-11-10] MEDS: HCTZ PO SCH (17:30)
[2018-11-10] MEDS: LOVENOX SUB-Q SCH (21:07)
[2018-11-10] MEDS: LOPRESSOR PO SCH (21:09)
[2018-11-10] MEDS ORDERED: NACL 0.9% 500 ML 500 ML IV ONE (21:49)
[2018-11-11 05:04] LABS: Basophils # (Auto) 0.1 K/mm3 (0.0-0.1); Eosinophils # (Auto) 0.2 K/mm3 (0.0-0.4); Eosinophils % (Auto) 2.1 % (0.0-4.3); Hematocrit 32.2 % (35.5-45.6); Lymphocytes # (Auto) 2.2 K/mm3 (1.2-5.4); Lymphocytes % (Auto) 24.8 % (13.4-35.0); Mean Corpuscular HGB Conc 34 % (32-34); Mean Corpuscular Volume 88 fl (84-94); Monocytes # (Auto) 0.9 K/mm3 (0.0-0.8); Monocytes % (Auto) 10.4 % (0.0-7.3); Platelet Count 423 K/mm3 (140-440); Red Blood Count 3.67 M/mm3 (3.65-5.03); Red Cell Distribution Width 14.3 % (13.2-15.2)
[2018-11-11 05:16] LABS: BUN/Creatinine Ratio 11; Blood Urea Nitrogen 10 mg/dL (9-20); Calcium 9.4 mg/dL (8.4-10.2); Hemolysis Index 5
[2018-11-11] MEDS: ZOSYN/NS 4.5GM/100ML 4.5 GM/100 ML VIAL IV SCH ×3 (05:25→22:11)
[2018-11-11] MEDS: PULMICORT IH SCH ×2 (08:46→20:23)
[2018-11-11] MEDS: BROVANA NEBU IH SCH ×2 (08:46→20:23)
[2018-11-11] MEDS: HCTZ PO SCH (09:34)
[2018-11-11] MEDS: COZAAR PO SCH (09:35)
[2018-11-11] MEDS: HABITROL TD SCH (09:35)
[2018-11-11] MEDS: NORVASC PO SCH (09:36)
[2018-11-11] MEDS: ZYLOPRIM PO SCH (09:36)
[2018-11-11] MEDS: PEPCID PO SCH ×2 (09:36→22:14)
[2018-11-11] MEDS: LOPRESSOR PO SCH ×3 (09:36→22:17)
[2018-11-11] MEDS: FLOMAX PO SCH (09:36)
[2018-11-11] MEDS: DILAUDID IV PRN ×3 (09:48→20:15)
--- NOTE | 2018-11-11 10:47 | Event Note ---
Date: 11/11/18 Patient status post drainage and aspiration of presacral fluid collection. No significant complaints today. Only minimal amounts of drainage with some blood tinged drainage consistent with collapse of his abscess cavity. If there is no persistent drainage, will remove the drainage catheter likely on Tuesday.
[2018-11-11] MEDS: HumaLOG SUB-Q SCH ×4 (12:30→20:12)
--- NOTE | 2018-11-11 13:00 | Progress Note ---
Assessment and Plan 67 yo M with 1. chronic anal fistula 2. pelvic abscess s/p CT guided drainage on 11/10/18 3. sacral osteomyelitis 4. urinary retention Plan: 1. c/p CT guided drainage of pelvic abscess - will defer drain management to IR 2. Continue wound care to sacrum as needed although there is no further drainage at the site 3. prn pain control 4. IV abx per ID 5. Patient will need colorectal surgery evaluation to address this complex complication of chronic anal fistula. Recommend Dr. Morris Meadows at [place] or Dr. Germaine Piedra at [place] Will s/o. Thank you, please call with questions. Subjective Date of service: 11/11/18 Narrative: Pt seen and examined. s/p CT guided drainage of pelvic collection yesterday. Feels better. Has been ambulating and OOB. No further left foot pain. No f/c, cp, sob. Tolerating diet. Objective Vital Signs - 12hr 11/11/18 11/11/18 11/11/18 05:00 06:00 06:59 Temperature 98.2 F 98.4 F 98.3 F Pulse Rate 78 78 82 Pulse Rate [ Bilateral Throughout] Respiratory 20 18 18 Rate Respiratory Rate [Bilateral Throughout] Blood Pressure 146/74 Blood Pressure 140/110 140/110 [Right] O2 Sat by Pulse 96 Oximetry 11/11/18 11/11/18 11/11/18 08:46 08:55 08:57 Temperature Pulse Rate Pulse Rate [ 68 70 Bilateral Throughout] Respiratory Rate Respiratory 16 16 Rate [Bilateral Throughout] Blood Pressure Blood Pressure [Right] O2 Sat by Pulse 96 Oximetry 11/11/18 11/11/18 11/11/18 09:35 09:36 11:23 Temperature 98.0 F Pulse Rate 82 82 74 Pulse Rate [ Bilateral Throughout] Respiratory 20 Rate Respiratory Rate [Bilateral Throughout] Blood Pressure 146/74 146/74 131/67 Blood Pressure [Right] O2 Sat by Pulse 100 Oximetry - General physical appearance Narrative Exam: Gen: AAOx3. NAD CV: s1, s2+ resp: even and unlabored Abd: soft, NT Ext; no c/c/e Sacrum: No further drainage from fistula tract at sacrum. Drainage catheter with serosanguenous fluid draining - Labs 11/11/18 04:26 11/11/18 04:26 Diabetes panel 11/11/18 Range/Units 04:26 Sodium 140 (137-145) mmol/L Potassium 3.8 (3.6-5.0) mmol/L Chloride 102.4 (98-107) mmol/L Carbon Dioxide 26 (22-30) mmol/L BUN 10 (9-20) mg/dL Creatinine 0.9 (0.8-1.5) mg/dL Glucose 120 H (75-100) mg/dL Calcium 9.4 (8.4-10.2) mg/dL Calcium panel 11/11/18 Range/Units 04:26 Calcium 9.4 (8.4-10.2) mg/dL Pituitary panel 11/11/18 Range/Units 04:26 Sodium 140 (137-145) mmol/L Potassium 3.8 (3.6-5.0) mmol/L Chloride 102.4 (98-107) mmol/L Carbon Dioxide 26 (22-30) mmol/L BUN 10 (9-20) mg/dL Creatinine 0.9 (0.8-1.5) mg/dL Glucose 120 H (75-100) mg/dL Calcium 9.4 (8.4-10.2) mg/dL Adrenal panel 11/11/18 Range/Units 04:26 Sodium 140 (137-145) mmol/L Potassium 3.8 (3.6-5.0) mmol/L Chloride 102.4 (98-107) mmol/L Carbon Dioxide 26 (22-30) mmol/L BUN 10 (9-20) mg/dL Creatinine 0.9 (0.8-1.5) mg/dL Glucose 120 H (75-100) mg/dL Calcium 9.4 (8.4-10.2) mg/dL
--- NOTE | 2018-11-11 14:22 | Progress Note ---
Subjective Date of service: 11/11/18 Principal diagnosis: pelvic abn Interval history: Sepsis, POA Empiric abx for now-Zosyn , blood/urine Cultures negative likely from perirectal abscess and osteomylitis of sacrum spiking temp, consulted ID - ordered MRI abdomen and reconsulted GS MRI showed: 1. Left decubitus ulcer with tract extending into the pelvis which connects to a large abscess lying along the anterior aspect of the sacrum. Findings of osteomyelitis of the sacrum. 2. Left decubitus ulcer tract also extends to the posterior aspect of the anus which may represent an anal fissure. 3. Findings of myositis involving the bilateral piriformis and gluteus medius muscles. Status post CT-guided drainage of pelvic abscess on 11/10 Urinary retention Little inserted in the ER Urology consult requested - recommended to cont little and outpt followup started on flomax Chronic Anal fistula, cont wound care Gen. surgery note reviewed and appreciated Per her recommendations needs colorectal surgeon evaluation Colostomy care discussed with dr. Parra, no h/o colon cancer HTN (hypertension) Cont antihypertensives Tobacco abuse Nicoderm patch HLD (hyperlipidemia) Cont statins COPD (chronic obstructive pulmonary disease) Cont Ellipta and Duonebs T2DM (type 2 diabetes mellitus) Continue insulin sliding scale coverage Coverage for now Mild to moderate Malnutrition, likely from underlying sepsis albumin low with low prealbumin Dietitian consult requested for oral supplements DVT prophylaxis On Lovenox Brief history: 67 yo M with hx of end colostomy in 2002 due to recurrent anal fistula presents to ER with c/o lower abdominal pain, mucous like discharge from rectum and unable to void for 4 days. Per patient daughter the patient had his first surgery from anal fistula 33 years ago at [facility]. He then had another surgery in [address] [facility] to drain the anal fistula and creation of a colostomy. His colostomy could not be reversed due to continued chronic infection in the anal region. A little was placed in the ER for urinary retention and CT abdomen/pelvis obtained which was concerning for colonic mass? GS evaluated the patient and revied the CT abdomen/pelvis and it was concluded that there is no colonic mass but could be a possible perirectal abscess. patient was placed on abx, all cx were negative but continued to spike fever and purulent drainage from perianal region. ID consulted, obtained MRI which showed presacral abscess and sacral osteomylitis. consulted IR for drainage, will need total 6 weeks of abx, pending deep wound cx. Subjective Patient is alert and oriented Complains of for the occasional shortness of breath. Denies cough Also complains of pain in the lower back in the sacroiliac area Denies any fever or chills Denies chest pain or nausea or abdominal pain Lab results reviewed All interdisciplinary notes reviewed Objective: HEENT: Normocephalic pupils round reactive to light throat is clear Neck is supple no significant adenopathy no thyromegaly no carotid bruit Lungs are clear but diminished to auscultation Heart: S1-S2 regular rate and rhythm Abdomen is soft nontender no hepatosplenomegaly Sacrum: Has a draining catheter post CT-guided abscess drainage MANAGER FINANCIAL REPORTING: Bilateral lower extremity weakness, no focal deficit Objective - Constitutional Vitals: Vital Signs - 12hr 11/11/18 11/11/18 11/11/18 05:00 06:00 06:59 Temperature 98.2 F 98.4 F 98.3 F Pulse Rate 78 78 82 Pulse Rate [ Bilateral Throughout] Respiratory 20 18 18 Rate Respiratory Rate [Bilateral Throughout] Blood Pressure 146/74 Blood Pressure 140/110 140/110 [Right] O2 Sat by Pulse 96 Oximetry 11/11/18 11/11/18 11/11/18 08:46 08:55 08:57 Temperature Pulse Rate Pulse Rate [ 68 70 Bilateral Throughout] Respiratory Rate Respiratory 16 16 Rate [Bilateral Throughout] Blood Pressure Blood Pressure [Right] O2 Sat by Pulse 96 Oximetry 11/11/18 11/11/18 11/11/18 09:35 09:36 11:23 Temperature 98.0 F Pulse Rate 82 82 74 Pulse Rate [ Bilateral Throughout] Respiratory 20 Rate Respiratory Rate [Bilateral Throughout] Blood Pressure 146/74 146/74 131/67 Blood Pressure [Right] O2 Sat by Pulse 100 Oximetry - Labs CBC & Chem 7: 11/11/18 04:26 11/11/18 04:26 Labs: Abnormal lab results 11/10/18 11/11/18 11/11/18 Range/Units 22:12 04:26 04:26 Hgb 11.0 L (11.8-15.2) gm/dl Hct 32.2 L (35.5-45.6) % [place] % (Auto) 10.4 H (0.0-7.3) % [place] # 0.9 H (0.0-0.8) K/mm3 Glucose 120 H (75-100) mg/dL POC Glucose 132 H (70-105) 11/11/18 11/11/18 Range/Units 05:33 11:28 Hgb (11.8-15.2) gm/dl Hct (35.5-45.6) % [place] % (Auto) (0.0-7.3) % [place] # (0.0-0.8) K/mm3 Glucose (75-100) mg/dL POC Glucose 110 H 152 H (70-105)
[2018-11-11] MEDS: CATAPRES-TTS PATCH TD SCH (17:17)
[2018-11-11] MEDS: SODIUM CHLORIDE FLUSH SYRINGE 10 ML IV SCH ×2 (17:25→20:14)
[2018-11-11] MEDS: LOVENOX SUB-Q SCH (22:15)
[2018-11-12] MEDS: HumaLOG SUB-Q SCH ×4 (02:25→18:26)
[2018-11-12] MEDS: DILAUDID IV PRN ×5 (04:55→21:18)
[2018-11-12] MEDS: ZOFRAN IV PRN ×2 (04:57→18:05)
[2018-11-12] MEDS: ZOSYN/NS 4.5GM/100ML 4.5 GM/100 ML VIAL IV SCH ×3 (05:00→23:43)
[2018-11-12] MEDS: SODIUM CHLORIDE FLUSH SYRINGE 10 ML IV SCH ×3 (05:05→23:34)
[2018-11-12] MEDS: BROVANA NEBU IH SCH ×2 (09:02→19:22)
[2018-11-12] MEDS: PULMICORT IH SCH ×2 (09:03→19:21)
[2018-11-12] MEDS: NORVASC PO SCH (09:50)
[2018-11-12] MEDS: LOPRESSOR PO SCH ×2 (09:50→23:51)
[2018-11-12] MEDS: ZYLOPRIM PO SCH (09:50)
[2018-11-12] MEDS: PEPCID PO SCH ×2 (09:50→23:33)
[2018-11-12] MEDS: FLOMAX PO SCH (09:50)
[2018-11-12] MEDS: HABITROL TD SCH (09:51)
[2018-11-12] MEDS: COZAAR PO SCH (09:51)
[2018-11-12] MEDS: HCTZ PO SCH (09:51)
--- NOTE | 2018-11-12 13:14 | Progress Note ---
Assessment and Plan /Sepsis, POA Empiric abx for now-Zosyn , blood/urine Cultures negative likely from perirectal abscess and osteomylitis of sacrum spiking temp, consulted ID - ordered MRI abdomen and reconsulted GS MRI showed: 1. Left decubitus ulcer with tract extending into the pelvis which connects to a large abscess lying along the anterior aspect of the sacrum. Findings of osteomyelitis of the sacrum. 2. Left decubitus ulcer tract also extends to the posterior aspect of the anus which may represent an anal fissure. 3. Findings of myositis involving the bilateral piriformis and gluteus medius muscles. Status post CT-guided drainage of pelvic abscess on 11/10 - cx growing E.coli Plan to remove drainage on Tuesday / Urinary retention Little inserted in the ER Urology consult requested - recommended to cont little and outpt followup started on flomax / Anal fistula, cont wound care Gen. surgery note reviewed and appreciated Per her recommendations needs colorectal surgeon evaluation / Colostomy care discussed with dr. Parra, no h/o colon cancer / HTN (hypertension) Cont antihypertensives / Nicotine addiction Nicoderm patch /HLD (hyperlipidemia) Cont statins / COPD (chronic obstructive pulmonary disease) Cont Ellipta and Duonebs / T2DM (type 2 diabetes mellitus) Coverage for now / Mild to moderate Malnutrition, likely from underlying sepsis albumin low with low prealbumin Dietitian consult requested for oral supplements / DVT prophylaxis On Lovenox Brief history: 67 yo M with hx of end colostomy in 2002 due to recurrent anal fistula presents to ER with c/o lower abdominal pain, mucous like discharge from rectum and unable to void for 4 days. Per patient daughter the patient had his first surgery from anal fistula 33 years ago at [facility]. He then had another surgery in 2002 at [facility] to drain the anal fistula and creation of a colostomy. His colostomy could not be reversed due to continued chronic infection in the anal region. A little was placed in the ER for urinary retention and CT abdomen/pelvis obtained which was concerning for colonic mass? GS evaluated the patient and revied the CT abdomen/pelvis and it was concluded that there is no colonic mass but could be a possible perirectal abscess. patient was placed on abx, all cx were negative but continued to spike fever and purulent drainage from perianal region. ID consulted, obtained MRI which showed presacral abscess and sacral osteomylitis. consulted IR for drainage, will need total 6 weeks of abx, pending deep wound cx. Subjective Date of service: 11/12/18 Principal diagnosis: pelvic abn Interval history: patient seen and examined doing lot better, little in place s/p IR guided drainage of pelvic abscess which is draining bloody fluid Objective - Exam Narrative Exam: General appearance: Present: no acute distress, well-nourished - EENT Eyes: PERRL, EOM intact ENT: hearing intact, clear oral mucosa Ears: bilateral: normal - Neck Neck: supple, normal ROM - Respiratory Respiratory effort: normal Respiratory: bilateral: CTA - Cardiovascular Rhythm: regular Heart Sounds: Present: S1 & S2. Absent: gallop, rub Extremities: pulses intact, No edema, normal color, Full ROM - Gastrointestinal General gastrointestinal: Present: soft, non-tender, non-distended, normal bowel sounds - Integumentary Integumentary: clear, warm, dry - Musculoskeletal Musculoskeletal: 1, strength equal bilaterally - Neurologic Neurologic: moves all extremities - Psychiatric Psychiatric: memory intact, appropriate mood/affect, intact judgment & insight - Constitutional Vitals: Vital Signs - 12hr 11/12/18 11/12/18 11/12/18 03:53 08:40 08:49 Temperature 98.3 F Pulse Rate 80 Pulse Rate [ 80 82 Bilateral Throughout] Respiratory 18 Rate Respiratory 16 16 Rate [Bilateral Throughout] Blood Pressure 132/63 Blood Pressure [Right] O2 Sat by Pulse 96 93 Oximetry 11/12/18 09:00 Temperature 98.4 F Pulse Rate 78 Pulse Rate [ Bilateral Throughout] Respiratory 18 Rate Respiratory Rate [Bilateral Throughout] Blood Pressure Blood Pressure 144/66 [Right] O2 Sat by Pulse 93 Oximetry - Labs CBC & Chem 7: 11/11/18 04:26 11/11/18 04:26 Labs: Abnormal lab results 11/12/18 11/12/18 Range/Units 00:14 06:19 POC Glucose 123 H 131 H (70-105)
[2018-11-12] MEDS: LOVENOX SUB-Q SCH (23:33)
[2018-11-13] MEDS: DILAUDID IV PRN ×6 (00:22→21:00)
[2018-11-13] MEDS: ZOSYN/NS 4.5GM/100ML 4.5 GM/100 ML VIAL IV SCH ×2 (05:41→13:58)
[2018-11-13] MEDS: HumaLOG SUB-Q SCH ×4 (06:00→17:44)
[2018-11-13] MEDS: BROVANA NEBU IH SCH ×3 (07:34→20:27)
[2018-11-13] MEDS: PULMICORT IH SCH ×2 (07:34→20:27)
[2018-11-13] MEDS ORDERED: BROVANA NEBU IH SCH (08:30)
--- NOTE | 2018-11-13 09:04 | Event Note ---
Date: 11/13/18 Only scant drainage from drainage catheter. Drainage catheter was therefore removed. We will expect minimal serosanguineous drainage as the puncture tract extends through the gluteus musculature
[2018-11-13] MEDS: LOPRESSOR PO SCH ×2 (09:23→21:01)
[2018-11-13] MEDS: HCTZ PO SCH (09:23)
[2018-11-13] MEDS: NORVASC PO SCH (09:23)
[2018-11-13] MEDS: COZAAR PO SCH (09:23)
[2018-11-13] MEDS: ZYLOPRIM PO SCH (09:23)
[2018-11-13] MEDS: HABITROL TD SCH (09:24)
[2018-11-13] MEDS: PEPCID PO SCH ×2 (09:24→21:02)
[2018-11-13] MEDS: FLOMAX PO SCH (09:24)
[2018-11-13] MEDS: SODIUM CHLORIDE FLUSH SYRINGE 10 ML IV SCH ×2 (09:30→23:56)
--- NOTE | 2018-11-13 10:30 | Progress Note ---
Assessment and Plan maging 11/03/2018 Abdomen/Pelvis CT:Large presacral/coccygeal soft tissue mass with bony destruction, most suspicious for metastatic disease in this patient with presumed colorectal carcinoma with postsurgical changes. Cultures: 11/03/18 Blood: no growth to date 11/03/18 Urine: no growth to date 11/08/18 Buttocks drainage pending 11/11/18: Surgical: MDR E.coli A/P: 67-year-old male with a history of Gout and hypertension, Colon CA, colostomy in 2002 due to recurrent fisturla.Apparently he has not urinated in 4 days. He also noted some soreness in his rectal area especially when sitting down as well as mucous discharge for the last 3 days. The patient had a colostomy performed due to a chronic anal fistula. He did have surgical drainage of the anal fi stula. From the records he has not had a recent colonoscopy: 1. Sepsis: Resolved Etiology likely large presacral and coccigeal abscess. UA neg. 2. Large Presacral/Coccygeal Soft tissue Mass with Bony Destruction: history of anal fistula with multiple infections requiring colostomy. On exam, coccygeal area with previous healed surgical scar from which there is a sinus tract open draining copious purulence and very tender to palpation, should r/o coccygeal osteomyelitis +/- coloncutaneous fistula. CRP=29. Pelvic MRI: Left decubitus ulcer with tract extending into the pelvis which connects to a large abscess lying along the anterior aspect of the sacrum. Findings of osteomyelitis of the sacrum. Left decubitus ulcer tract also extends to the posterior aspect of the anus which may represent an anal fissure.. Findings of myositis involving the bilateral piriformis and gluteus medius muscles Status post CT-guided drainage of pelvic abscess on 11/10, Drainage catheter removed- surgery following 3. Urinary Retention: reports not urinating in 4 days. Briscoe placed, urology consulted, UA neg. Plan: - discontinue Zosyn -Start Ceftriaxone 2gms IV every 24 hours -Start Flagyl 500mg PO every 8 hours -Will be discharged on Ceftriaxone 2gms IV every 24 hours for a total of 6 weeks ending 12-19-18 and Flagyl 500mg. PO every 8 hours a total of 2 weeks ending 11-26-17 - surgery on board -PICC line order placed -f/u ID clinic .12-19-18 Madonna Mercer NP [facility] M: [id number] O:[phone] Subjective Date of service: 11/13/18 Principal diagnosis: pelvic abn Interval history: Patient seen and examined. Daughters at bedside. Stated the patient was going home not SNF.. Discussion about 6 week antibiotic regimen, questions answered. Objective - Exam Narrative Exam: Constitutional: Alert, cooperative. no acute distress Head, Ears, Nose: Normocephalic, atraumatic. External ears, nose normal Eyes: Conjunctivae/corneas clear. No icterus. No ptosis. Neck: Supple, no meningeal signs Oral: dentition poor, no thrush Cardiovascular: S1, S2 normal. Respiratory: Good air entry, clear to auscultation bilaterally GI: Soft, non-tender; bowel sounds normal. No peritoneal signs Musculoskeletal: No pedal edema, no cyanosis. Skin: minimal coccygeal drainage, drain removed. Hem/Lymphatic: No palpable cervical or supraclavicular nodes. No lymphangitis Psych: Mood ok. Affect normal Neurological: Awake, alert, oriented. - Constitutional Vitals: Vital Signs Temp Pulse Resp BP Pulse Ox 98.1 F 64 18 117/54 94 11/13/18 07:20 11/13/18 07:37 11/13/18 07:37 11/13/18 07:20 11/13/18 07:37 Temperature -Last 24 Hours Temperature 98.1 F Temperature 98.6 F Temperature 98.2 F Temperature 98.2 F - Labs CBC & Chem 7: 11/13/18 13:39 11/11/18 04:26 Labs: Abnormal lab results 11/12/18 11/12/18 11/13/18 Range/Units 18: 23:58 05:46 POC Glucose 138 H 123 H 107 H (70-105)
[2018-11-13 13:51] LABS: Basophils # (Auto) 0.1 K/mm3 (0.0-0.1); Basophils % (Auto) 0.9 % (0.0-1.8); Eosinophils # (Auto) 0.3 K/mm3 (0.0-0.4); Eosinophils % (Auto) 4.1 % (0.0-4.3); Hematocrit 32.7 % (35.5-45.6); Hemoglobin 10.8 gm/dl (11.8-15.2); Lymphocytes # (Auto) 1.7 K/mm3 (1.2-5.4); Lymphocytes % (Auto) 23.2 % (13.4-35.0); Mean Corpuscular HGB Conc 33 % (32-34); Mean Corpuscular Volume 92 fl (84-94); Monocytes # (Auto) 0.7 K/mm3 (0.0-0.8); Monocytes % (Auto) 10.2 % (0.0-7.3); Platelet Count 387 K/mm3 (140-440); Red Blood Count 3.57 M/mm3 (3.65-5.03)
--- NOTE | 2018-11-13 14:09 | Progress Note ---
Assessment and Plan /Sepsis, POA Empiric abx for now-Zosyn , blood/urine Cultures negative likely from perirectal abscess and osteomylitis of sacrum spiking temp, consulted ID - ordered MRI abdomen and reconsulted GS MRI showed: 1. Left decubitus ulcer with tract extending into the pelvis which connects to a large abscess lying along the anterior aspect of the sacrum. Findings of osteomyelitis of the sacrum. 2. Left decubitus ulcer tract also extends to the posterior aspect of the anus which may represent an anal fissure. 3. Findings of myositis involving the bilateral piriformis and gluteus medius muscles. Status post CT-guided drainage of pelvic abscess on 11/10 which is removed today - cx growing E.coli ID patient will need total 6 weeks of IV Antibiotics, will follow further recommendation for discharge / Urinary retention Little inserted in the ER Urology consult requested - recommended to cont little and outpt followup started on flomax / Anal fistula, cont wound care Gen. surgery note reviewed and appreciated Per her recommendations needs colorectal surgeon evaluation / Colostomy care discussed with dr. Parra, no h/o colon cancer / HTN (hypertension) Cont antihypertensives / Nicotine addiction Nicoderm patch /HLD (hyperlipidemia) Cont statins / COPD (chronic obstructive pulmonary disease) Cont Ellipta and Duonebs / T2DM (type 2 diabetes mellitus) Coverage for now / Mild to moderate Malnutrition, likely from underlying sepsis albumin low with low prealbumin Dietitian consult requested for oral supplements / DVT prophylaxis On Lovenox Disposition: Home with home health. Patient will need IV antibiotic and will go home with Little catheter. Need outpatient follow-up with urologist in 1 week following discharge. Also need f/u with colorectal surgeon. Brief history: 67 yo M with hx of end colostomy in 2002 due to recurrent anal fistula presents to ER with c/o lower abdominal pain, mucous like discharge from rectum and unable to void for 4 days. Per patient daughter the patient had his first surgery from anal fistula 33 years ago at [facility]. He then had another surgery in 2002 at [facility] to drain the anal fistula and creation of a colostomy. His colostomy could not be reversed due to continued chronic infection in the anal region. A little was placed in the ER for urinary retention and CT abdomen/pelvis obtained which was concerning for colonic mass? GS evaluated the patient and revied the CT abdomen/pelvis and it was concluded that there is no colonic mass but could be a possible perirectal abscess. patient was placed on abx, all cx were negative but continued to spike fever and purulent drainage from perianal region. ID consulted, obtained MRI which showed presacral abscess and sacral osteomylitis. s/p CT guided drainage by IR, will need total 6 weeks of abx pending deep wound cx. Subjective Date of service: 11/13/18 Principal diagnosis: pelvic abn Interval history: patient seen and examined doing lot better, little in place Discussed with daughter at bedside about discharge planning No new issues overnight Objective - Exam Narrative Exam: General appearance: Present: no acute distress, well-nourished - EENT Eyes: PERRL, EOM intact ENT: hearing intact, clear oral mucosa Ears: bilateral: normal - Neck Neck: supple, normal ROM - Respiratory Respiratory effort: normal Respiratory: bilateral: CTA - Cardiovascular Rhythm: regular Heart Sounds: Present: S1 & S2. Absent: gallop, rub Extremities: pulses intact, No edema, normal color, Full ROM - Gastrointestinal General gastrointestinal: Present: soft, non-tender, non-distended, normal bowel sounds - Integumentary Integumentary: clear, warm, dry - Musculoskeletal Musculoskeletal: 1, strength equal bilaterally - Neurologic Neurologic: moves all extremities - Psychiatric Psychiatric: memory intact, appropriate mood/affect, intact judgment & insight - Constitutional Vitals: Vital Signs - 12hr 11/13/18 11/13/18 11/13/18 04:54 07:20 07:25 Temperature 98.6 F 98.1 F Pulse Rate 67 63 Pulse Rate [ 63 Bilateral Throughout] Respiratory 20 18 Rate Respiratory 18 Rate [Bilateral Throughout] Blood Pressure 135/61 117/54 O2 Sat by Pulse 92 94 Oximetry 11/13/18 07:37 Temperature Pulse Rate Pulse Rate [ 64 Bilateral Throughout] Respiratory Rate Respiratory 18 Rate [Bilateral Throughout] Blood Pressure O2 Sat by Pulse 94 Oximetry - Labs CBC & Chem 7: 11/13/18 13:39 11/11/18 04:26 Labs: Abnormal lab results 11/12/18 11/12/18 11/13/18 Range/Units 18:19 23:58 05:46 RBC (3.65-5.03) M/mm3 Hgb (11.8-15.2) gm/dl Hct (35.5-45.6) % [place] % (Auto) (0.0-7.3) % POC Glucose 138 H 123 H 107 H (70-105) 11/13/18 11/13/18 Range/Units 11:26 13:39 RBC 3.57 L (3.65-5.03) M/mm3 Hgb 10.8 L (11.8-15.2) gm/dl Hct 32.7 L (35.5-45.6) % [place] % (Auto) 10.2 H (0.0-7.3) % POC Glucose 148 H (70-105)
--- NOTE | 2018-11-13 15:55 | XRay Report ---
FINAL REPORT EXAM: XR CHEST 1V AP HISTORY: picc placement COMPARISON: None. TECHNIQUE: Frontal views of the chest FINDINGS: Right upper extremity PICC line with tip in the superior vena cava. The cardiomediastinal silhouette is normal in appearance. The lungs are clear without focal consolidation. No pleural effusion or pneumothorax. No acute bony or soft tissue abnormality. IMPRESSION: Right upper extremity PICC line with tip in the superior vena cava.
[2018-11-13] MEDS ORDERED: ROCEPHIN/NS 2 GM/100 ML 2 GM/100 ML BAG IV SCH (18:00)
[2018-11-13] MEDS: FLAGYL PO SCH ×2 (18:13→23:51)
[2018-11-13] MEDS: LOVENOX SUB-Q SCH (21:00)
[2018-11-14] MEDS: HumaLOG SUB-Q SCH ×3 (00:13→12:10)
[2018-11-14] MEDS: DILAUDID IV PRN ×2 (04:36→08:47)
[2018-11-14] MEDS: FLAGYL PO SCH ×2 (05:42→16:05)
[2018-11-14] MEDS: BROVANA NEBU IH SCH (08:39)
[2018-11-14] MEDS: PULMICORT IH SCH (08:39)
--- NOTE | 2018-11-14 10:10 | Progress Note ---
Assessment and Plan maging 11/03/2018 Abdomen/Pelvis CT:Large presacral/coccygeal soft tissue mass with bony destruction, most suspicious for metastatic disease in this patient with presumed colorectal carcinoma with postsurgical changes. Cultures: 11/03/18 Blood: no growth to date 11/03/18 Urine: no growth to date 11/08/18 Buttocks drainage pending 11/11/18: Surgical: E.coli A/P: 67-year-old male with a history of Gout and hypertension, Colon CA, colostomy in 2002 due to recurrent fisturla.Apparently he has not urinated in 4 days. He also noted some soreness in his rectal area especially when sitting down as well as mucous discharge for the last 3 days. The patient had a colostomy performed due to a chronic anal fistula. He did have surgical drainage of the anal fistul a. From the records he has not had a recent colonoscopy: 1. Sepsis: Resolved Etiology likely large presacral and coccigeal abscess. UA neg. 2. Large Presacral/Coccygeal Soft tissue Mass with Bony Destruction: history of anal fistula with multiple infections requiring colostomy. On exam, coccygeal area with previous healed surgical scar from which there is a sinus tract open draining copious purulence and very tender to palpation, should r/o coccygeal osteomyelitis +/- coloncutaneous fistula. CRP=29. Pelvic MRI: Left decubitus ulcer with tract extending into the pelvis which connects to a large abscess lying along the anterior aspect of the sacrum. Findings of osteomyelitis of the sacrum. Left decubitus ulcer tract also extends to the posterior aspect of the anus which may represent an anal fissure.. Findings of myositis involving the bilateral piriformis and gluteus medius muscles Status post CT-guided drainage of pelvic abscess on 11/10, Drainage catheter removed- surgery following 3. Urinary Retention: reports not urinating in 4 days. Briscoe placed, urology consulted, UA neg. Plan: -continue Ceftriaxone 2gms IV every 24 hours -Continue Flagyl 500mg PO every 8 hours -Will be discharged on Ceftriaxone 2gms IV every 24 hours for a total of 6 weeks ending 12-19-18 and Flagyl 500mg. PO every 8 hours a total of 2 weeks ending 11-26-17 - surgery on board -PICC line order placed -f/u ID clinic .12-19-18 COURTNEY [facility] M: [id number] O:[phone] Subjective Date of service: 11/14/18 Principal diagnosis: pelvic abn Interval history: Patient seen and examined. Stated that he was going to SNF today. Discharge OPAT discussed, verbalized understanding. No family at bedside. Objective - Exam Narrative Exam: Constitutional: Alert, cooperative. no acute distress Head, Ears, Nose: Normocephalic, atraumatic. External ears, nose normal Eyes: Conjunctivae/corneas clear. No icterus. No ptosis. Neck: Supple, no meningeal signs Oral: dentition poor, no thrush Cardiovascular: S1, S2 normal. Respiratory: Good air entry, clear to auscultation bilaterally GI: Soft, non-tender; bowel sounds normal. No peritoneal signs Musculoskeletal: No pedal edema, no cyanosis. Skin: minimal coccygeal drainage, drain removed. Hem/Lymphatic: No palpable cervical or supraclavicular nodes. No lymphangitis Psych: Mood ok. Affect normal Neurological: Awake, alert, oriented. - Constitutional Vitals: Vital Signs Temp Pulse Resp BP Pulse Ox 98.6 F 74 20 145/69 96 11/14/18 04:13 11/14/18 08:42 11/14/18 09:17 11/14/18 07:00 11/14/18 08:43 Temperature -Last 24 Hours Temperature 98.6 F Temperature 98.6 F Temperature 98.7 F Temperature 98.0 F - Labs CBC & Chem 7: 11/13/18 13:39 11/11/18 04:26 Labs: Abnormal lab results 11/13/18 11/13/18 11/13/18 Range/Units 11:26 13:39 16:53 RBC 3.57 L (3.65-5.03) M/mm3 Hgb 10.8 L (11.8-15.2) gm/dl Hct 32.7 L (35.5-45.6) % [place] % (Auto) 10.2 H (0.0-7.3) % POC Glucose 148 H 132 H (70-105) 11/14/18 11/14/18 Range/Units 00:09 08:17 RBC (3.65-5.03) M/mm3 Hgb (11.8-15.2) gm/dl Hct (35.5-45.6) % [place] % (Auto) (0.0-7.3) % POC Glucose 146 H 131 H (70-105)
[2018-11-14] MEDS: HABITROL TD SCH (12:16)
[2018-11-14] MEDS: HCTZ PO SCH (12:16)
[2018-11-14] MEDS: COZAAR PO SCH (12:16)
[2018-11-14] MEDS: LOPRESSOR PO SCH (12:17)
[2018-11-14 12:18] VITALS: BP 127/58
[2018-11-14] MEDS: NORVASC PO SCH (12:18)
[2018-11-14] MEDS: FLOMAX PO SCH (12:19)
[2018-11-14] MEDS: ZYLOPRIM PO SCH (12:19)
[2018-11-14] MEDS: PEPCID PO SCH (12:19)
[2018-11-14] MEDS: SODIUM CHLORIDE FLUSH SYRINGE 10 ML IV SCH (12:20)
--- NOTE | 2018-11-14 13:10 | Discharge Summary ---
Providers - Providers Date of Admission: 11/03/18 12:58 Date of discharge: 11/14/18 Attending physician: SANJANA BIRCH 11/03/18 Consult to Case Management [CONS] Routine Services Needed at Discharge: Home Health Services Notified:: cm notified 11/03/18 12:57 Consult to Physician [CONS] Routine Comment: DR ANDREA NOTIFIED [id number] Consulting Provider: CRYSTAL ANDREA Physician Instructions: Reason For Exam: rectal abscess 11/04/18 01:43 Consult to Physician [CONS] Routine Comment: Consulting Provider: HAMILTON PETERSEN Physician Instructions: Reason For Exam: Colon mass 11/04/18 01:45 Consult to Physician [CONS] Routine Comment: Consulting Provider: LESLYE WORKMAN Physician Instructions: Reason For Exam: urinary retention 11/06/18 14:08 Consult to Physician [CONS] Routine Comment: Consulting Provider: FLORA ZHANG Physician Instructions: Reason For Exam: low grade temp 11/09/18 14:07 Consult to Physician [CONS] Routine Comment: Consulting Provider: DONALDO JOSEPH Physician Instructions: Reason For Exam: drain anorectal abscess 11/10/18 10:37 Physical Therapy Evaluation and Treat [CONS] Routine Comment: Reason For Exam: Difficulty in ambulating 11/10/18 12:17 Occupational Therapy Evaluate and Treat [CONS] Routine Comment: Reason For Exam: eval & treat 11/13/18 13:42 PICC Line Placement [Consult to PICC Line RN] [CONS] Urgent Reason For Exam: out patient antibiotic therapy Type Line:: PICC 11/13/18 15:45 Consult to Case Management [CONS] Urgent Services Needed at Discharge: Home Health Services Notified:: yes Additional Physician Instructions: [facility] M [phone] O [phone] F [phone] OUTPATIENT PARENTERAL ANTIBIOTIC THERAPY ORDERS Diagnoses: large oresacral/coccygeal soft tissue mass with bony destruction, a history of anal fisture with multiple infections requiring colostomy Antimicrobial administration: -Will be discharged on Ceftriaxone 2gms IV every 24 hours for a total of 6 weeks ending 12-19-18 and Flagyl 500 mg PO every 8 hours for a total of 2 weeks ending 11-26-17 Remove PICC line after last dose unless otherwise instructed. Lines: PICC Lab monitoring: CBC, BUN, Creatinine, ALT, AST, CRP and ESR once a week preferly on Tuesday morning. Please fax results to [phone] and call [phone] for critical lab results. 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 Per patient daughter the patient had his first surgery from anal fistula 33 years ago at [facility]. He then had another surgery in 2002 at [facility] to drain the anal fistula and creation of a colostomy. His colostomy could not be reversed d ue to continued chronic infection in the anal region. A little was placed in the ER for urinary retention and CT abdomen/pelvis obtained which was concerning for colonic mass? GS evaluated the patient and reviewed the CT abdomen/pelvis and it was concluded that there is no colonic mass but could be a possible perirectal abscess. Mr. Stewart was placed on abx. ID consulted, obtained MRI which showed pre-sacral abscess and sacral osteomyelitis. IR consulted for drainage, which was done 11/10/18 and catheter removed by Dr. Joseph. ID has given final recommendations which required RUE PICC line placed on 11/13/18. Patien will need total 6 weeks of abx. Imagin11/03/2018 Abdomen/Pelvis CT:Large presacral/coccygeal soft tissue mass with bony destruction, most suspicious for metastatic disease in this patient with presumed colorectal carcinoma with postsurgical changes. Cultures: 11/03/18 Blood: no growth to date 11/03/18 Urine: no growth to date 11/08/18 Buttocks drainage skin ruthie 11/11/18: Abdominal Surgical culture: MDR E.coli Discharge Diagnoses: /Sepsis, POA Empiric abx for now-Zosyn , blood/urine Cultures negative likely from perirectal abscess and osteomylitis of sacrum spiking temp, consulted ID - ordered MRI abdomen and reconsulted GS MRI showed: 1. Left decubitus ulcer with tract extending into the pelvis which connects to a large abscess lying along the anterior aspect of the sacrum. Findings of osteomyelitis of the sacrum. 2. Left decubitus ulcer tract also extends to the posterior aspect of the anus which may represent an anal fissure. 3. Findings of myositis involving the bilateral piriformis and gluteus medius muscles. Status post CT-guided drainage of pelvic abscess on 11/10 - cx growing E.coli Plan to remove drainage on Tuesday / Urinary retention Little inserted in the ER Urology consult requested - recommended to cont little and outpt followup started on flomax / Anal fistula, cont wound care Gen. surgery note reviewed and appreciated Per her recommendations needs colorectal surgeon evaluation / Colostomy care discussed with dr. Andrea, no h/o colon cancer / HTN (hypertension) Cont antihypertensives / Nicotine addiction Nicoderm patch [employer] on stopping /HLD (hyperlipidemia) Cont statins / COPD (chronic obstructive pulmonary disease) Cont Ellipta and Duonebs / T2DM (type 2 diabetes mellitus) Coverage for now / Mild to moderate Malnutrition, likely from underlying sepsis albumin low with low prealbumin Dietitian consult requested for oral supplements / DVT prophylaxis On Lovenox ID Plan: -continue Ceftriaxone 2gms IV every 24 hours -Continue Flagyl 500mg PO every 8 hours -Will be discharged on Ceftriaxone 2gms IV every 24 hours for a total of 6 weeks ending 12-19-18 and Flagyl 500mg. PO every 8 hours a total of 2 weeks ending 11-26-17 - surgery on board -PICC line order placed -f/u ID clinic .12-19-18 Disposition: [id number]/[place] Time spent for discharge: 35 minutes Core Measure Documentation - Palliative Care Palliative Care/ Comfort Measures: Not Applicable - Core Measures Any of the following diagnoses?: none - VTE Discharge Requirements Deep Vein Thrombosis/Pulmonary Embolism Present on Admission: No Has pt received <5 days of overlap therapy or INR<2.0: No Anticoagulant overlap therapy prescribed at discharge: No Contraindication No Overlap Therapy order at DC: Not Indicated Exam - Physical Exam Narrative exam: Gen: WDWN, NAD, Awake, Alert, Orientated HEENT: NCAT, EOMI, PERRL, OP Clear Neck: supple, no adenopathy, no thyromegaly, no JVD CVS/Heart: RRR, normal S1S2, pulses present bilaterally Chest/Lungs: CTA B, Symmetrical chest expansion, good air entry bilaterally GI/Abdomen: soft, colostomy intact, NTND, good bowel sounds, no guarding or rebound /Bladder: no suprapubic tenderness, no CVA or paraspinal tenderness Extermity/Skin: no c/c/e, no obvious rash, sacral wound MSK: FROM x 4 Neuro: CN 2-12 grossly intact, no new focal deficits Psych: calm - Constitutional Vitals: Temp Pulse Resp BP Pulse Ox 98.6 F 75 20 127/58 96 11/14/18 04:13 11/14/18 12:18 11/14/18 09:17 11/14/18 12:18 11/14/18 08:43 Plan Activity: up only with assistance, fall precautions, other (no strenous activity unless cleared by PCP) Diet: low salt, diabetic Special Instructions: record blood sugar diary (with meals tidac) Additional Instructions: ID Plan: -continue Ceftriaxone 2gms IV every 24 hours. -Continue Flagyl 500mg PO every 8 hours. -Will be discharged on Ceftriaxone 2gms IV every 24 hours for a total of 6 weeks ending 12-19-18 and Flagyl 500mg. PO every 8 hours a total of 2 weeks ending 11-26-17. - surgery on board. -PICC line order placed. -f/u ID clinic .12-19-18 Follow up with: SOWMYA ADAMS MD [Primary Care Provider] - 7 Days LESLYE WORKMAN MD [Staff Physician] - 7 Days FLORA ZHANG MD [Staff Physician] - 12/19/18 Prescriptions: cefTRIAXone/NS 2 GM/100 ML [Rocephin/Ns 2 gm/100 ml] 2 gm IV Q24HR 35 Days piggyback RX: Nicotine [Habitrol] 14 mg TD QDAY #30 patch Oxycodone HCl/Acetaminophen [Percocet 10/325 mg] 1 each PO Q6HR PRN #15 tablet PRN Reason: Pain , Severe (7-10) RX: Tamsulosin [Flomax] 0.4 mg PO QDAY #30 capsule
--- NOTE | 2018-11-14 15:59 | Progress Note ---
Assessment and Plan maging 11/03/2018 Abdomen/Pelvis CT:Large presacral/coccygeal soft tissue mass with bony destruction, most suspicious for metastatic disease in this patient with presumed colorectal carcinoma with postsurgical changes. Cultures: 11/03/18 Blood: no growth to date 11/03/18 Urine: no growth to date 11/08/18 Buttocks drainage pending 11/11/18: Surgical: MDR E.coli A/P: 67-year-old male with a history of Gout and hypertension, Colon CA, colostomy in 2002 due to recurrent fisturla.Apparently he has not urinated in 4 days. He also noted some soreness in his rectal area especially when sitting down as well as mucous discharge for the last 3 days. The patient had a colostomy performed due to a chronic anal fistula. He did have surgical drainage of the anal fi stula. From the records he has not had a recent colonoscopy: 1. Sepsis: Resolved Etiology likely large presacral and coccigeal abscess. UA neg. 2. Large Presacral/Coccygeal Soft tissue Mass with Bony Destruction: history of anal fistula with multiple infections requiring colostomy. On exam, coccygeal area with previous healed surgical scar from which there is a sinus tract open draining copious purulence and very tender to palpation, should r/o coccygeal osteomyelitis +/- coloncutaneous fistula. CRP=29. Pelvic MRI: Left decubitus ulcer with tract extending into the pelvis which connects to a large abscess lying along the anterior aspect of the sacrum. Findings of osteomyelitis of the sacrum. Left decubitus ulcer tract also extends to the posterior aspect of the anus which may represent an anal fissure.. Findings of myositis involving the bilateral piriformis and gluteus medius muscles Status post CT-guided drainage of pelvic abscess on 11/10, Drainage catheter removed- surgery following 3. Urinary Retention: reports not urinating in 4 days. Briscoe placed, urology consulted, UA neg. Plan: -continue Ceftriaxone 2gms IV every 24 hours -Continue Flagyl 500mg PO every 8 hours -Will be discharged on Ceftriaxone 2gms IV every 24 hours for a total of 6 weeks ending 12-19-18 and Flagyl 500mg. PO every 8 hours a total of 2 weeks ending 11-26-17 - surgery on board -PICC line order placed -f/u ID clinic .12-19-18 [facility] M: [id number] O:[phone] Subjective Date of service: 11/14/18 Principal diagnosis: pelvic abn Objective - Constitutional Vitals: Vital Signs Temp Pulse Resp BP Pulse Ox 98.4 F 75 22 127/58 94 11/14/18 11:12 11/14/18 12:18 11/14/18 11:12 11/14/18 12:18 11/14/18 11:09 Temperature -Last 24 Hours Temperature 98.4 F Temperature 98.6 F Temperature 98.6 F Temperature 98.7 F - Labs CBC & Chem 7: 11/13/18 13:39 11/11/18 04:26 Labs: Abnormal lab results 11/13/18 11/14/18 11/14/18 Range/Units 16:53 00:09 08:17 POC Glucose 132 H 146 H 131 H (70-105) 11/14/18 Range/Units 11:41 POC Glucose 125 H (70-105)
== END 2018-11-14 17:24 | DRG 871 ==
LOC: ED 08:39 → 3B-SURG 12:58
PROVIDERS: ADMIT Internal Medicine; ATTEND Internal Medicine
PROC: 0W9J30Z Drainage of Pelvic Cavity with Drainage Device, Percutaneous Approach (ICD-10-PCS; principal; 2018-11-10)
PROC: 3E0234Z Introduction of Serum, Toxoid and Vaccine into Muscle, Percutaneous Approach (ICD-10-PCS; 2018-11-10)
PROC: 02HV33Z Insertion of Infusion Device into Superior Vena Cava, Percutaneous Approach (ICD-10-PCS; 2018-11-13)
DX: A41.9 Sepsis, unspecified organism (principal); K65.1 Peritoneal abscess; C18.9 Malignant neoplasm of colon, unspecified; E44.0 Moderate protein-calorie malnutrition; M86.8X8 Other osteomyelitis, other site; R33.9 Retention of urine, unspecified; L89.899 Pressure ulcer of other site, unspecified stage; K60.3 Anal fistula; I10 Essential (primary) hypertension; E11.69 Type 2 diabetes mellitus with other specified complication; J44.9 Chronic obstructive pulmonary disease, unspecified; M10.9 Gout, unspecified; E78.2 Mixed hyperlipidemia; F17.210 Nicotine dependence, cigarettes, uncomplicated; M89.8X8 Other specified disorders of bone, other site; Z93.3 Colostomy status; Z71.6 Tobacco abuse counseling; Z87.01 Personal history of pneumonia (recurrent); Z79.899 Other long term (current) drug therapy; Z68.31 Body mass index [BMI] 31.0-31.9, adult; Z23 Encounter for immunization
CPT/HCPCS: 10160; 36415; 71045; 72197; 74176; 74177; 77012; 80048; 80053; 81001; 82140; 82962; 83036; 84134; 85025; 86140; 87040; 87076; 87086; 87116; 87186; 90732; 94640; 94760; 96361; 96365; G0378; A9270-GY; A9577; C1769; J0360; J0692; J0696; J1170; J1650; J1815; J2250; J2405; J2543; J3010; J7030; J7040; J7042; Q9967

== ENCOUNTER 2021-09-30 19:08 | Emergency (ER) | payer MEDICARE ==
[~2021-09-30 19:08] MED LIST: EPINEPHrine 1 MG/10 ML SYRINGE ONE; SODIUM BICARB 8.4% 50 MEQ/50 ML SYRINGE IV ONE
--- NOTE | 2021-09-30 19:43 | Emergency Department Report ---
HPI - General Chief Complaint: Cardiac Arrest/CPR Time Seen by Provider: 09/30/21 19:08 - HPI HPI: ambulance called for SOB started acutely this evening , on arrival no pulse no spont breathing epi given bs 157, IO inserted and temp airway ED Past Medical Hx - Past Medical History Hx Hypertension: Yes Hx Congestive Heart Failure: No Hx Diabetes: Yes Hx Deep Vein Thrombosis: No Hx Arthritis: Yes Hx Asthma: No Hx COPD: Yes Additional medical history: gout,pneumonia - Surgical History Hx Pacemaker: No Hx Internal Defibrillator: No Additional Surgical History: colostomy - Social History Smoking Status: Current Every Day Smoker Substance Use Type: None - Medications Home Medications: Home Medications Medication Instructions Recorded Confirmed Last Taken Type Fluticasone/Vilanterol [Breo 1 each IH QDAY 11/03/18 11/03/18 Unknown History Ellipta 200-25 Mcg INH] Acetaminophen [Acetaminophen TAB] 650 mg PO Q4H PRN #30 tablet 11/14/18 Unknown Rx Amlodipine Besylate [Norvasc] 10 mg PO QDAY #30 tab 11/14/18 11/03/18 Unknown Rx Arformoterol Nebu [Brovana Nebu] 15 mcg IH Q12HRT #60 ml 11/14/18 Unknown Rx Atorvastatin Calcium [Lipitor] 20 mg PO QHS #30 tab 11/14/18 11/03/18 Unknown Rx Budesonide [Pulmicort Respules] 0.5 mg IH Q12HRT #30 nebu 11/14/18 Unknown Rx Famotidine [Pepcid] 20 mg PO BID #60 tablet 11/14/18 Unknown Rx Lispro Insulin [HumaLOG] 0 unit SUB-Q Q6HR units 11/14/18 Unknown Rx Metoprolol [Lopressor TAB] 25 mg PO BID #60 tab 11/14/18 11/03/18 Unknown Rx Nicotine [Habitrol] 14 mg TD QDAY #30 patch 11/14/18 Unknown Rx Olmesartan/Hydrochlorothiazide 1 each PO QDAY #30 tab 11/14/18 11/03/18 Unknown Rx [Olmesartan-Hctz 40-25 mg Tab] Oxycodone HCl/Acetaminophen 1 each PO Q6HR PRN #15 tablet 11/14/18 Unknown Rx [Percocet 10/325 mg] Tamsulosin [Flomax] 0.4 mg PO QDAY #30 capsule 11/14/18 Unknown Rx allopurinoL [Zyloprim] 300 mg PO QDAY #30 tab 11/14/18 11/03/18 Unknown Rx cefTRIAXone/NS 2 GM/100 ML 2 gm IV Q24HR 35 Days piggyback 11/14/18 Unknown Rx [Rocephin/Ns 2 gm/100 ml] metroNIDAZOLE [Flagyl TAB] 500 mg PO Q8HR 12 Days tablet 11/14/18 Unknown Rx ED Review of Systems ROS: Stated complaint: CARDIAC ARREST Other details as noted in HPI Comment: Unobtainable due to pts medical conditions ED Course - Reevaluation(s) Reevaluation #1: 09/30/21 19:41 epibicarb and calicum given , no ;ulse intubated with 7.5 tube , pronounced at 1916 - Intubation Sedative: none Laryngoscope: fiberoptic video scope Size: 3 Assist Device Used: fiberoptic device ET Tube Size: 7.5 Tube Secured Depth (cm): 23 Tube Secured Location: lips Tube Placement Confirmation: visualized tube passing t, equal breath sounds bilat, confirmation by capnometr Patient Tolerated Procedure: no complications Intubation Complications: none Critical care attestation.: If time is entered above; I have spent that time in minutes in the direct care of this critically ill patient, excluding procedure time. ED Disposition Clinical Impression: Cardiac arrest Disposition: 20 Is pt being admited?: No Does the pt Need Aspirin: No Condition: Undetermined
== END 2021-09-30 21:34 ==
LOC: ED 19:08
DX: I46.9 Cardiac arrest, cause unspecified (principal); F17.200 Nicotine dependence, unspecified, uncomplicated; I10 Essential (primary) hypertension
CPT/HCPCS: 31500; 99285; J0171; J3490; 92950